=== PATIENT | male | born 1960 | race Caucasian/White ===

== ENCOUNTER → 2019-03-06 | Outpatient (CLI) | payer BC, SELFPAY ==
[2019-03-06 20:16] VITALS: BMI 44.1
[2019-03-07 00:08] LABS: Absolute Lymphocyte Count 1.81 X10^3/ul (0.83-4.51); Absolute Neutrophil Count 6.8 X10^3/uL (2.0-7.7); Basophil# 0.05 X10^3/uL; Basophil% 0.5 % (0-1); Eosinophil# 0.33 X10^3/uL; Eosinophils% 3.4 % (0-5); Hematocrit 44.2 % (40-54); Hemoglobin 14.5 g/dl (13.0-16.5); Lymphocyte # 1.81 X10^3/ul (4.0); Lymphocyte % 18.6 % (19-41); Mean Corp Hgb Conc 32.8 g/gl (32-36); Mean Corpuscular Hgb 28.2 pg (27.0-32.0); Mean Platelet Vol. 12.1 fl (6.2-12.0); Monocyte# 0.68 X10^3/uL; Neutrophil # 6.84 X10^3/uL (2.7-7.7); Neutrophil % 70.2 % (47-70); POSITIVE COUNT NO; POSITIVE DIFFERENTIAL NO; POSITIVE MORPHOLOGY NO; Platelet Count 291 K/mm3 (150-450); RBC Distribution Width CV 12.8 % (11.6-14.6); Red Blood Count 5.14 M/mm3 (4.6-6.2); White Blood Count 9.7 K/mm3 (4.4-11.0)
[2019-03-07 00:37] LABS: ALB/GLOB Ratio 0.8 RATIO (0.9-2.4); AST(SGOT) 17 U/L (15-37); Alanine Aminotransfer ALT/SGPT 23 U/L (16-61); Albumin, Serum 3.3 g/dL (3.2-5.0); Alkaline Phosphatase 59 U/L (45-117); Amylase 28 U/L (25-115); Anion Gap 8 (5-15); BUN 13 mg/dL (7-18); Calcium,Total 8.4 mg/dL (8.5-10.1); Chloride 100 mmol/L (98-107); Creatinine, Serum 0.93 mg/dL (0.70-1.30); EST Glomerular Filtration Rate 88 mL/min (>60); Est Glom Filt Rate - Afr Amer 107 mL/min (>60); Glucose 343 mg/dL (74-106); Lipase 60 U/L (73-393); Potassium 3.7 mmol/L (3.5-5.1); Protein, Total 7.3 g/dL (6.4-8.2); Sodium Level 134 mmol/L (136-145)
== END | disposition home or self-care (01) ==
PROVIDERS: Visit Provider Nurse Practitioner
DX: E11.65 Type 2 diabetes mellitus with hyperglycemia (principal); R10.13 Epigastric pain
CPT/HCPCS: 80053; 82150; 83690; 84443; 85025

== ENCOUNTER → 2020-04-14 | Outpatient (CLI) | payer BC, SELFPAY ==
[2019-04-30 17:34] VITALS: BMI 42.1
[2020-04-14 21:05] LABS: Absolute Neutrophil Count 4.9 X10^3/uL (2.0-7.7); Basophil# 0.08 X10^3/uL; Hematocrit 48.3 % (40-54); Hemoglobin 15.7 g/dL (13.0-16.5); Lymphocyte % 23.8 % (19-41); Mean Corp Hgb Conc 32.5 g/dL (32-36); Mean Corpuscular Hgb 30.1 pg (27.0-32.0); Mean Corpuscular Volume 92.5 fL (80-94); Mean Platelet Vol. 11.5 fl (6.2-12.0); Monocyte# 0.69 X10^3/uL; Monocyte% 8.7 % (0-10); NRBC Flagged by Analyzer 0 % (0-5); Neutrophil # 4.89 X10^3/uL (2.7-7.7); Neutrophil % 61.4 % (47-70); Platelet Count 302 K/mm3 (150-450); RBC Distribution Width CV 12.8 % (11.6-14.6); RBC Distribution Width SD 43.5 fl (35.1-43.9); Red Blood Count 5.22 M/mm3 (4.6-6.2)
[2020-04-14 21:28] LABS: ALB/GLOB Ratio 0.9 RATIO (0.9-2.4); AST(SGOT) 15 U/L (15-37); Alanine Aminotransfer ALT/SGPT 27 U/L (16-61); Albumin, Serum 3.6 g/dL (3.2-5.0); Alkaline Phosphatase 52 U/L (45-117); Anion Gap 5 (5-15); BUN 17 mg/dL (7-18); BUN/Creat Ratio 21.2 RATIO (10-20); Calcium,Total 8.8 mg/dL (8.5-10.1); Chloride 104 mmol/L (98-107); Cholesterol 153 mg/dL (200); EST Glomerular Filtration Rate 104 mL/min (>60); Est Glom Filt Rate - Afr Amer 126 mL/min (>60); Globulin 3.9 g/dL (2.2-4.2); Glucose 134 mg/dL (74-106); High Density Lipoprotein 56 mg/dL; Potassium 4.1 mmol/L (3.5-5.1); Protein, Total 7.5 g/dL (6.4-8.2); Sodium Level 138 mmol/L (136-145); Triglycerides 101 mg/dL; Very Low Density Lipoprotein 20 mg/dL (5-40)
== END | disposition home or self-care (01) ==
PROVIDERS: Referring Provider Nurse Practitioner; Visit Provider Nurse Practitioner
DX: I10 Essential (primary) hypertension (principal); E11.65 Type 2 diabetes mellitus with hyperglycemia
CPT/HCPCS: 80053; 80061; 85025

== ENCOUNTER → 2021-04-14 22:43 | Outpatient (CLI) | payer BC, SELFPAY ==
[2021-04-14 18:20] VITALS: BMI 42.0
[2021-04-14 23:03] LABS: Absolute Lymphocyte Count 1.72 X10^3/uL (0.83-4.51); Basophil# 0.07 X10^3/uL; Basophil% 0.8 % (0-1); Eosinophil# 0.27 X10^3/uL; Eosinophils% 3.1 % (0-5); Hematocrit 48.2 % (40-54); Hemoglobin 15.6 g/dL (13.0-16.5); Lymphocyte # 1.72 X10^3/ul (0.83-4.51); Lymphocyte % 19.6 % (19-41); Mean Corp Hgb Conc 32.4 g/dL (32-36); Mean Corpuscular Hgb 29.6 pg (27.0-32.0); Mean Corpuscular Volume 91.5 fL (80-94); Mean Platelet Vol. 11.6 fl (6.2-12.0); Monocyte# 0.76 X10^3/uL; Monocyte% 8.7 % (0-10); NRBC Flagged by Analyzer 0 % (0-5); Neutrophil # 5.95 X10^3/uL (2.7-7.7); Neutrophil % 67.7 % (47-70); Platelet Count 306 K/mm3 (150-450); RBC Distribution Width CV 12.5 % (11.6-14.6); RBC Distribution Width SD 41.8 fl (35.1-43.9); Red Blood Count 5.27 M/mm3 (4.6-6.2); White Blood Count 8.8 K/mm3 (4.4-11.0)
[2021-04-14 23:13] LABS: ALB/GLOB Ratio 0.9 RATIO (0.9-2.4); AST(SGOT) 25 U/L (15-37); Alanine Aminotransfer ALT/SGPT 30 U/L (16-61); Albumin, Serum 3.7 g/dL (3.2-5.0); Alkaline Phosphatase 54 U/L (45-117); Anion Gap 3 (5-15); BUN 17 mg/dL (7-18); BUN/Creat Ratio 23.2 RATIO (10-20); Calcium,Total 9.1 mg/dL (8.5-10.1); Chloride 100 mmol/L (98-107); Cholesterol 159 mg/dL (200); Creatinine, Serum 0.73 mg/dL (0.70-1.30); EST Glomerular Filtration Rate 115 mL/min (>60); Est Glom Filt Rate - Afr Amer 139 mL/min (>60); Globulin 4.1 g/dL (2.2-4.2); Glucose 79 mg/dL (74-106); High Density Lipoprotein 63 mg/dL; PSA,Total - Annual Screen 0.31 ng/mL (0.00-4.00); Potassium 4.6 mmol/L (3.5-5.1); Protein, Total 7.8 g/dL (6.4-8.2); Sodium Level 133 mmol/L (136-145); Triglycerides 63 mg/dL; Very Low Density Lipoprotein 13 mg/dL (5-40)
== END ==
PROVIDERS: Referring Provider Nurse Practitioner; Visit Provider Nurse Practitioner
DX: I10 Essential (primary) hypertension (principal); E11.65 Type 2 diabetes mellitus with hyperglycemia; R35.0 Frequency of micturition
CPT/HCPCS: 80053; 80061; 84153; 85025; G0103

== ENCOUNTER → 2023-01-15 | Outpatient (CLI) | payer BC, SELFPAY ==
[2023-01-15 21:41] LABS: Absolute Lymphocyte Count 1.58 X10^3/uL (0.83-4.51); Basophil# 0.07 X10^3/uL; Basophil% 0.8 % (0-1); Eosinophil# 0.41 X10^3/uL; Eosinophils% 4.7 % (0-5); Hematocrit 44.4 % (40-54); Hemoglobin 14.5 g/dL (13.0-16.5); Lymphocyte # 1.58 X10^3/ul (0.83-4.51); Mean Corp Hgb Conc 32.7 g/dL (32-36); Mean Corpuscular Hgb 29.9 pg (27.0-32.0); Mean Corpuscular Volume 91.5 fL (80-94); Mean Platelet Vol. 12.1 fl (6.2-12.0); Monocyte# 0.69 X10^3/uL; Monocyte% 7.9 % (0-10); NRBC Flagged by Analyzer 0 % (0-5); Neutrophil # 5.99 X10^3/uL (2.7-7.7); Neutrophil % 68.3 % (47-70); Platelet Count 268 K/mm3 (150-450); RBC Distribution Width CV 12.9 % (11.6-14.6); RBC Distribution Width SD 43.4 fl (35.1-43.9); Red Blood Count 4.85 M/mm3 (4.6-6.2); White Blood Count 8.8 K/mm3 (4.4-11.0)
[2023-01-15 21:53] LABS: ALB/GLOB Ratio 0.9 RATIO (0.9-2.4); AST(SGOT) 18 U/L (15-37); Alanine Aminotransfer ALT/SGPT 34 U/L (16-61); Albumin, Serum 3.3 g/dL (3.2-5.0); Alkaline Phosphatase 62 U/L (45-117); Anion Gap -1 (5-15); BUN 16 mg/dL (7-18); BUN/Creat Ratio 18.5 RATIO (10-20); Calcium,Total 8.5 mg/dL (8.5-10.1); Chloride 104 mmol/L (98-107); Cholesterol 155 mg/dL (200); Creatinine, Serum 0.86 mg/dL (0.70-1.30); EST Glomerular Filtration Rate 95 mL/min (>60); Est Glom Filt Rate - Afr Amer 115 mL/min (>60); Globulin 3.6 g/dL (2.2-4.2); Glucose 271 mg/dL (74-106); High Density Lipoprotein 56 mg/dL; Potassium 4.2 mmol/L (3.5-5.1); Protein, Total 6.9 g/dL (6.4-8.2); Sodium Level 136 mmol/L (136-145); Triglycerides 148 mg/dL; Very Low Density Lipoprotein 30 mg/dL (5-40)
== END | disposition home or self-care (01) ==
PROVIDERS: Visit Provider Nurse Practitioner
DX: E11.65 Type 2 diabetes mellitus with hyperglycemia (principal); I10 Essential (primary) hypertension
CPT/HCPCS: 80053; 80061; 85025

== ENCOUNTER → 2023-03-12 | Outpatient (CLI) | payer BC, SELFPAY ==
[2023-03-12 21:41] LABS: Absolute Lymphocyte Count 1.55 X10^3/uL (0.83-4.51); Absolute Neutrophil Count 6.8 X10^3/uL (2.0-7.7); Basophil# 0.07 X10^3/uL; Basophil% 0.7 % (0-1); Eosinophil# 0.32 X10^3/uL; Eosinophils% 3.4 % (0-5); Hematocrit 42.2 % (40-54); Hemoglobin 13.9 g/dL (13.0-16.5); Lymphocyte # 1.55 X10^3/ul (0.83-4.51); Lymphocyte % 16.4 % (19-41); Mean Corp Hgb Conc 32.9 g/dL (32-36); Mean Corpuscular Hgb 29.6 pg (27.0-32.0); Mean Corpuscular Volume 89.8 fL (80-94); Mean Platelet Vol. 11.5 fl (6.2-12.0); Monocyte% 7.4 % (0-10); NRBC Flagged by Analyzer 0 % (0-5); Neutrophil % 71.7 % (47-70); Platelet Count 280 K/mm3 (150-450); RBC Distribution Width CV 12.8 % (11.6-14.6); RBC Distribution Width SD 42.5 fl (35.1-43.9); White Blood Count 9.5 K/mm3 (4.4-11.0)
[2023-03-12 22:00] LABS: ALB/GLOB Ratio 0.9 RATIO (0.9-2.4); AST(SGOT) 13 U/L (15-37); Alanine Aminotransfer ALT/SGPT 24 U/L (16-61); Albumin, Serum 3.3 g/dL (3.2-5.0); Alkaline Phosphatase 50 U/L (45-117); Anion Gap 5 (5-15); BUN 18 mg/dL (7-18); BUN/Creat Ratio 20.5 RATIO (10-20); Chloride 104 mmol/L (98-107); Cholesterol 157 mg/dL (200); Creatinine, Serum 0.88 mg/dL (0.70-1.30); EST Glomerular Filtration Rate 93 mL/min (>60); Est Glom Filt Rate - Afr Amer 112 mL/min (>60); Globulin 3.7 g/dL (2.2-4.2); Glucose 205 mg/dL (74-106); High Density Lipoprotein 66 mg/dL; Potassium 4.1 mmol/L (3.5-5.1); Sodium Level 137 mmol/L (136-145); Triglycerides 91 mg/dL; Very Low Density Lipoprotein 18 mg/dL (5-40)
== END | disposition home or self-care (01) ==
PROVIDERS: Visit Provider Nurse Practitioner
DX: I10 Essential (primary) hypertension (principal); E11.65 Type 2 diabetes mellitus with hyperglycemia
CPT/HCPCS: 80053; 80061; 85025

== ENCOUNTER → 2023-04-26 | Outpatient (CLI) | payer BC, SELFPAY ==
[2023-04-26 22:00] LABS: Absolute Lymphocyte Count 1.59 X10^3/uL (0.83-4.51); Absolute Neutrophil Count 5.9 X10^3/uL (2.0-7.7); Basophil# 0.05 X10^3/uL; Basophil% 0.6 % (0-1); Eosinophils% 3.5 % (0-5); Hematocrit 43.8 % (40-54); Hemoglobin 14.5 g/dL (13.0-16.5); Lymphocyte # 1.59 X10^3/ul (0.83-4.51); Lymphocyte % 18.6 % (19-41); Mean Corp Hgb Conc 33.1 g/dL (32-36); Mean Corpuscular Hgb 29.8 pg (27.0-32.0); Mean Corpuscular Volume 89.9 fL (80-94); Mean Platelet Vol. 11.8 fl (6.2-12.0); Monocyte# 0.75 X10^3/uL; Monocyte% 8.8 % (0-10); NRBC Flagged by Analyzer 0 % (0-5); Neutrophil # 5.85 X10^3/uL (2.7-7.7); Neutrophil % 68.1 % (47-70); Platelet Count 295 K/mm3 (150-450); RBC Distribution Width CV 12.7 % (11.6-14.6); RBC Distribution Width SD 41.7 fl (35.1-43.9); Red Blood Count 4.87 M/mm3 (4.6-6.2); White Blood Count 8.6 K/mm3 (4.4-11.0)
[2023-04-30 16:14] LABS: Deamidated Gliadin IgA 6 units (0-19); Deamidated Gliadin IgG 1 units (0-19); Endomysial Antibody IgA Negative (Negative); Immunoglobulin A 360 mg/dL (61-437); t-Transglutaminase IgA <2 U/mL (0-3)
== END | disposition home or self-care (01) ==
PROVIDERS: Visit Provider Nurse Practitioner
DX: E11.65 Type 2 diabetes mellitus with hyperglycemia (principal); R10.13 Epigastric pain; R19.7 Diarrhea, unspecified
CPT/HCPCS: 82784; 83516; 84443; 85025; 86255

== ENCOUNTER → 2024-09-15 | Outpatient (CLI) | payer BC, SELFPAY ==
[2024-09-15 21:22] LABS: Absolute Lymphocyte Count 2.04 X10^3/uL (0.83-4.51); Absolute Neutrophil Count 7.3 X10^3/uL (2.0-7.7); Basophil# 0.08 X10^3/uL; Basophil% 0.8 % (0-1); Eosinophil# 0.27 X10^3/uL; Eosinophils% 2.6 % (0-5); Hematocrit 46.6 % (40-54); Hemoglobin 15.3 g/dL (13.0-16.5); Lymphocyte # 2.04 X10^3/ul (0.83-4.51); Lymphocyte % 19.3 % (19-41); Mean Corp Hgb Conc 32.8 g/dL (32-36); Mean Corpuscular Hgb 28.8 pg (27.0-32.0); Mean Corpuscular Volume 87.6 fL (80-94); Mean Platelet Vol. 12.3 fl (6.2-12.0); Monocyte# 0.83 X10^3/uL; Monocyte% 7.9 % (0-10); NRBC Flagged by Analyzer 0 % (0-5); Neutrophil # 7.32 X10^3/uL (2.7-7.7); Neutrophil % 69.2 % (47-70); Platelet Count 251 K/mm3 (150-450); RBC Distribution Width CV 12.3 % (11.6-14.6); RBC Distribution Width SD 39.3 fl (35.1-43.9); Red Blood Count 5.32 M/mm3 (4.6-6.2); White Blood Count 10.6 K/mm3 (4.4-11.0)
[2024-09-15 21:41] LABS: ALB/GLOB Ratio 0.9 RATIO (0.9-2.4); AST(SGOT) 13 U/L (15-37); Alanine Aminotransfer ALT/SGPT 30 U/L (16-61); Albumin, Serum 3.6 g/dL (3.2-5.0); Alkaline Phosphatase 54 U/L (45-117); Anion Gap 5 (5-15); BUN 15 mg/dL (7-18); BUN/Creat Ratio 18.6 RATIO (10-20); Calcium,Total 9.6 mg/dL (8.5-10.1); Chloride 102 mmol/L (98-107); Creatinine, Serum 0.81 mg/dL (0.70-1.30); EST Glomerular Filtration Rate 102 mL/min (>60); Est Glom Filt Rate - Afr Amer 123 mL/min (>60); Globulin 3.8 g/dL (2.2-4.2); Glucose 325 mg/dL (74-106); Potassium 4.2 mmol/L (3.5-5.1); Protein, Total 7.4 g/dL (6.4-8.2); Sodium Level 135 mmol/L (136-145)
[2024-09-17 12:08] LABS: CRP, High Sensitivity 8.36 mg/L (0.00-3.00)
== END | disposition home or self-care (01) ==
PROVIDERS: Referring Provider Nurse Practitioner; Visit Provider Nurse Practitioner
DX: E11.65 Type 2 diabetes mellitus with hyperglycemia (principal); I10 Essential (primary) hypertension
CPT/HCPCS: 80053; 85025; 86141

== ENCOUNTER → 2025-03-09 | Outpatient (CLI) | payer BC, SELFPAY ==
[2025-03-09 22:15] LABS: Absolute Lymphocyte Count 1.69 X10^3/uL (0.83-4.51); Absolute Neutrophil Count 7.5 X10^3/uL (2.0-7.7); Basophil# 0.08 X10^3/uL; Basophil% 0.8 % (0-1); Eosinophils% 2.9 % (0-5); Hematocrit 43.5 % (40-54); Hemoglobin 14.3 g/dL (13.0-16.5); Lymphocyte # 1.69 X10^3/ul (0.83-4.51); Lymphocyte % 16.4 % (19-41); Mean Corp Hgb Conc 32.9 g/dL (32-36); Mean Corpuscular Hgb 29.4 pg (27.0-32.0); Mean Corpuscular Volume 89.5 fL (80-94); Mean Platelet Vol. 12.3 fl (6.2-12.0); Monocyte# 0.73 X10^3/uL; Monocyte% 7.1 % (0-10); NRBC Flagged by Analyzer 0 % (0-5); Neutrophil # 7.48 X10^3/uL (2.7-7.7); Neutrophil % 72.5 % (47-70); Platelet Count 279 K/mm3 (150-450); RBC Distribution Width CV 12.4 % (11.6-14.6); RBC Distribution Width SD 41.1 fl (35.1-43.9); Red Blood Count 4.86 M/mm3 (4.6-6.2); White Blood Count 10.3 K/mm3 (4.4-11.0)
[2025-03-09 22:51] LABS: ALB/GLOB Ratio 1.4 RATIO (0.9-2.4); AST(SGOT) 15 U/L (<=37); Alanine Aminotransfer ALT/SGPT 15 U/L (<=46); Albumin, Serum 3.9 g/dL (3.4-4.8); Alkaline Phosphatase 53 U/L (40-129); Anion Gap 9 (5-15); BUN 14 mg/dL (4-19); CPK Total, Creatine Kinase 111 U/L (24-195); Calcium,Total 9.5 mg/dL (7.6-11.0); Carbon Dioxide 27.8 mmol/L (21.0-32.0); Chloride 97 mmol/L (98-108); Creatinine, Serum 0.71 mg/dL (0.70-1.20); EST Glomerular Filtration Rate 101 (>60); Globulin 2.9 g/dL (2.2-4.2); Glucose 296 mg/dL (70-99); Potassium 4.4 mmol/L (3.3-5.1); Protein, Total 6.8 g/dL (5.9-8.4); Sodium Level 134 mmol/L (133-145); Total Bilirubin 0.46 mg/dL (0.00-1.30); Uric Acid 3.1 mg/dL (3.5-7.2)
[2025-03-10 15:10] LABS: Troponin T High Sensitivity 18 ng/L (<=22)
== END | disposition home or self-care (01) ==
LOC: LABSPEC 21:58
PROVIDERS: Nurse Practitioner
DX: R10.9 Unspecified abdominal pain (principal); E11.65 Type 2 diabetes mellitus with hyperglycemia; R20.0 Anesthesia of skin; I10 Essential (primary) hypertension
CPT/HCPCS: 80053; 82550; 84484; 84550; 85025; 87077; 87086; 87088

== ENCOUNTER → 2025-06-03 | Outpatient (CLI) | payer BC, SELFPAY ==
--- NOTE | 2025-06-03 09:46 | VDLE_ITS ---
Reason For Study Reason For Study: Right leg edema RIGHT LEFT GSV is normal. CFV is compressible, spontaneous, phasic, competent, CFV is compressible, spontaneous, phasic, competent and demonstrates normal augmentation. and demonstrates normal augmentation. FV is compressible, spontaneous, phasic, competent and demonstrates normal augmentation. POP V is compressible, spontaneous, phasic, competent and demonstrates normal augmentation. T/P Trunk is compressible. PTV is compressible. RT PerV is compressible. Non-vascularized structure noted at the distal calf. Procedure This is a venous duplex using B-mode, color flow and spectral Doppler. Exam performed in department. A preliminary report was called and/or faxed to BRIANA Garibay. VL/Venous Duplex US, Unilateral Interpretation Summary Deep veins of the right lower extremity are patent and compressible segmentally . There is no evidence of right lower extremity deep vein thrombosis. The right great saphenous vein appears patent a nd compressible segmentally. Non-vascularized structure noted at the distal calf. Ordering Physician: Estefania Garibay Referring Physician: Estefania Garibay Performed By: Tierra Buck RVT and Student
== END | disposition home or self-care (01) ==
LOC: CVS 09:45
PROVIDERS: PCP Nurse Practitioner; Referring Provider Nurse Practitioner; Visit Provider Nurse Practitioner
DX: R60.0 Localized edema (principal); I82.461 Acute embolism and thrombosis of right calf muscular vein
CPT/HCPCS: 93971

== ENCOUNTER → 2025-08-20 | Outpatient (CLI) | payer BC, SELFPAY ==
--- OUTSIDE RECORDS SUMMARY | 2025-08-20 21:44 | XMS RPT_ITS | CCD ---
Author Organization [facility] Care Team Providers Care Drug Regulatory Affairs Specialist Name Role Phone Álvaro James Unavailable Unavailable PROVIDER, UNKNOWN Unavailable Unavailable Helton, Erik Unavailable Unavailable Helton LINING IRONER-C, Erik Attending Provider [phone] Helton LINING IRONER-C, Erik Referring Provider Miguel Heltona Attending Provider Unavailable Helton, Erik Referring Provider Unavailable CINDY HALL Attending Unavailabl e HELTON, ERIK L Primary Care Unavailable Helton LINING IRONER-C, Erik Primary Care Provider Willy STAFFORD, Dr. Dupree Attending Provider Nini STAFFORD, Lupillo Horne Unavailable NONE, NONE Unavailable Unavailable Helton, Erik Unavailable Helton LINING IRONER, Erik Primary Care Unavailable Helton LINING IRONER, Erik Referring Unavailable Helton LINING IRONER, Erik Attending Unavailable Helton, Erik Referring Unavailable Helton, Erik Attending Unavailable Care Physician, No Primary Primary Care Unava ilable Helton LINING IRONER, Erik Referring Unavailable Helton LINING IRONER, Erik Attending Unavailable Helton LINING IRONER, Erik Primary Care Unavailable Joon Aguilera Attending Unavailable Helton LINING IRONER, Erik Referring Unavailable HELTON, ERIK Primary Care Unavailable HELTON, ERIK Primary Care Unavailable HELTON, ERIK Primary Care Unavailable MCKENZIE STAFFORD, [facility] Admitting Unavail able HELTON, ERIK Primary Care Unavailable HELTON, ERIK Primary Care Unavailable HELTON, ERIK Primary Care Unavailable HELTON, ERIK Primary Care Unavailable Allergies Allergy Classification Reported Allergen(s) Allergy Type Date of Onset Reaction(s) Facility (3 sources) SITagliptin Drug Allergy 0 abd pain and unable to wake up [facility] (1 source) SITagliptin Drug Allergy 0 [facility] Repository Medications Current Medications Medication Drug Class(es) Dates Sig (Normalized) Sig (Original) Adult Low Dose Aspirin 81 mg tablet,delayed release (1 source) take 1 tablet by mouth once daily Adult Low Dose Aspirin 81 mg tablet,delayed release 1 tablet by mouth once a day active [facility] amLODIPine 5 mg oral tablet (3 sources) Dihydropyridine Calcium Channel Carlo Start: 09-15-2024 take 1 tablet by mouth once daily Amlodipine 5 mg tablet Active 5 mg PO daily 90 3 September 15, 2024 1:00am aspirin 81 mg delayed release oral tablet (3 sources) Platelet Aggregation Inhibitor, Nonsteroidal Anti-inflammatory Drug Start: 03-13-2019 take 1 tablet by mouth once daily Aspirin 81 mg tablet,delayed release (DR/EC) Active 81 mg PO DAILY March 13, 2019 12:00am atorvastatin 40 mg oral tablet (1 source) HMG-CoA Reductase Inhibitor take 1 tablet by mouth once daily atorvastatin 40 mg tablet 1 tablet by mouth once a day active [facility] clopidogrel 75 mg oral tablet (2 sources) P2Y12 Platelet Inhibitor Start: 06-02-2025 take 1 tablet by mouth once daily Clopidogrel 75 mg tablet Active 75 mg PO daily June 02, 2025 12:00am ibuprofen 200 mg oral tablet (1 source) Nonsteroidal Anti-inflammatory Drug take 2 tablets by mouth three times daily as needed for pain ibuprofen 200 mg tablet 2 tablet by mouth three times a day as needed for pain active [facility] TIRZEPATIDE (1 source) Mounjaro 10 mg/0 .5 mL subcutaneous pen injector 1 pen injector subcutaneously Sundays active [facility] Tirzepatide (Mounjaro) 10 mg/0.5 mL pen injector (1 source) Start: 06-01-2025 Tirzepatide (Mounjaro) 10 mg/0.5 mL pen injector Active 10 mg SC EVERY WEEK 6.5 90 3 June 01, 2025 12:00am Completed/Discontinued Medications Medication Drug Class(es) Dates Sig (Normalized) Sig (Original) baclofen 5 mg oral tablet (3 sources) gamma-Aminobutyric Acid-ergic Agonist Start: 01-05-2022 End: 01-15-2023 Baclofen 5 mg tablet Discontinued 5 mg PO THREE TIMES A DAY 60 4 January 05, 2022 12:00am January 15, 2023 7:12pm May take 1-2 pills up to 3 x a day cefdinir 300 mg oral capsule (2 sources) Cephalosporin Antibacterial Start: 01-11-2024 End: 02-15-2024 take 1 capsule by mouth twice daily Cefdinir 300 mg capsule Discontinued 300 mg PO TWICE A DAY 20 0 January 11, 2024 12:00am February 15, 2024 5:36pm ciprofloxacin 500 mg oral tablet (2 sources) Quinolone Antimicrobial Start: 04-26-2023 End: 01-11-2024 take 1 tablet by mouth twice daily Ciprofloxacin Hcl (Cipro) 500 mg tablet Discontinued 500 mg PO TWICE A DAY 14 April 26, 2023 12:00am January 11, 2024 5:54pm 24 hr dapagliflozin 10 mg / metFORMIN hydrochloride 500 mg extended release oral tablet (18 sources) Biguanide, Sodium-Glucose Cotransporter 2 Inhibitor Start: 04-03-2019 End: 01-15-2023 Dapaglifloz Propaned-Metformin (Xigduo Xr) 10-500 mg tablet, IR - ER, biphasic 24hr Discontinued 1 {tbl} PO DAILY 30 April 26, 2020 1:36pm April 14, 2021 6:29pm Dulaglutide (10 sources) GLP-1 Receptor Agonist Start: 03-29-2023 End: 09-15-2024 Dulaglutide 3 mg/0.5 mL pen injector Discontinued 3 mg SC EVERY WEEK 6.5 90 March 29, 2023 5:58pm September 15, 2024 8:44pm Start: 03-29-2023 End: 09-15-2024 Dulaglutide 3 mg/0.5 mL pen injector Discontinued 3 mg SC EVERY WEEK 6.5 90 March 29, 2023 5:58pm September 15, 2024 8:44pm Start: 03-12-2023 End: 03-29-2023 Dulaglutide 3 mg/0.5 mL pen injector Discontinued 3 mg SC EVERY WEEK 6.5 90 March 12, 2023 12:00am March 29, 2023 5:58pm Start: 03-12-2023 End: 03-29-2023 Dulaglutide 3 mg/0.5 mL pen injector Discontinued 3 mg SC EVERY WEEK 6.5 90 March 12, 2023 12:00am March 29, 2023 5:58pm Start: 01-15-2023 End: 03-12-2023 Dulaglutide 1.5 mg/0.5 mL pe n injector Discontinued 1.5 mg SC EVERY WEEK 2.5 30 January 15, 2023 12:00am March 12, 2023 7:57pm Start: 01-05-2022 End: 01-15-2023 Dulaglutide (Trulicity) 0.75 mg/0.5 mL pen injector Discontinued 0.75 mg SC EVERY WEEK 2.5 06 10January 05, 2022 12:00am January 15, 2023 7:13pm empagliflozin 25 mg oral tablet (3 sources) Sodium-Glucose Cotransporter 2 Inhibitor Start: 01-05-2022 End: 01-15-2023 take 1 tablet by mouth once daily Empagliflozin (Jardiance) 25 mg tablet Discontinued 25 mg PO DAILY 30 January 05, 2022 12:00am January 15, 2023 7:10pm lisinopril 10 mg oral tablet (3 sources) Angiotensin Converting Enzyme Inhibitor Start: 04-30-2019 End: 04-14-2021 take 1 tablet by mouth once daily Lisinopril 10 mg tablet Discontinued 10 mg PO DAILY 30 April 30, 2019 12:00am April 14, 2021 6:26pm metFORMIN hydrochloride 1000 mg oral tablet (20 sources) Biguanide Start: 01-05-2022 End: 09-15-2024 take 1 tablet by mouth twice daily Metformin 1,000 mg tablet Discontinued 1000 mg PO TWICE A DAY 180 2 June 06, 2023 4:37pm February 15, 2024 5:39pm Start: 03-13-2019 End: 04-03-2019 take 1 tablet by mouth twice daily Metformin 1,000 mg tablet Discontinued 1000 mg PO TWICE A DAY 180 3 March 13, 2019 8:14pm April 03, 2019 5:59pm 24 hr metoprolol succinate 50 mg extended release oral tablet (20 sources) beta-Adrenergic Carlo Start: 03-13-2019 End: 09-15-2024 take 1 tablet by mouth once daily Metoprolol Succinate 50 mg tablet extended release 24 hr Discontinued 50 mg PO DAILY 90 3 March 29, 2023 5:58pm September 15, 2024 8:39pm metroNIDAZOLE 250 mg oral tablet (2 sources) Nitroimidazole Antimicrobial Start: 04-26-2023 End: 05-06-2023 take 1 tablet by mouth three times daily Metronidazole 250 mg tablet Discontinued 250 mg PO THREE TIMES A DAY 30 10 0 April 26, 2023 12:00am May 05, 2023 12:00am May 06, 2023 12:03am pioglitazone 45 mg oral tablet (3 sources) Peroxisome Proliferator Receptor alpha Agonist, Peroxisome Proliferator Receptor gamma Agonist, Thiazolidinedione Start: 03-13-2019 End: 04-03-2019 take 1 tablet by mouth once daily Pioglitazone 45 mg tablet Discontinued 45 mg PO DAILY March 13, 2019 12:00am April 03, 2019 5:59pm predniSONE 20 mg oral tablet (2 sources) Start: 01-11-2024 End: 02-15-2024 take 2 tablets by mouth once daily Prednisone 20 mg tablet Discontinued 40 mg PO DAILY 20 January 11, 2024 12:00am February 15, 2024 5:36pm 0.25 mg, 0.5 mg dose 1.5 ml semaglutide 1.34 mg/ml pen injector (12 sources) Start: 04-03-2019 End: 01-15-2023 Semaglutide (Ozempic) 0.25 mg or 0.5 mg(2 mg/1.5 mL) pen injector Discontinued 0.5 mg SC EVERY WEEK June 01, 2020 5:47pm April 14, 2021 6:29pm Tirzepatide (Mounjaro) 2.5 mg/0.5 mL pen injector (2 sources) Start: 09-15-2024 End: 10-21-2024 Tirzepatide (Mounjaro) 2.5 mg/0.5 mL pen injector Discontinued 2.5 mg SC EVERY WEEK September 15, 2024 1:00am October 21, 2024 11:37am for 4 weeks Tirzepatide (Mounjaro) 5 mg/0.5 mL pen injector (2 sources) Start: 10-17-2024 End: 03-09-2025 Tirzepatide (Mounjaro) 5 mg/0.5 mL pen injector Discontinued 5 mg SC EVERY WEEK 2.5 30 October 17, 2024 1:00am March 09, 2025 8:07pm diabetes type 2 Start: 10-17-2024 End: 03-09-2025 Tirzepatide (Mounjaro) 5 mg/ 0.5 mL pen injector Discontinued 5 mg SC EVERY WEEK 2.5 30 October 17, 2024 1:00am March 09, 2025 8:07pm Tirzepatide (Mounjaro) 7.5 mg/0.5 mL pen injector (2 sources) Start: 03-09-2025 End: 06-02-2025 Tirzepatide (Mounjaro) 7.5 mg/0.5 mL pen injector Discontinued 7.5 mg SC EVERY WEEK 0.5 7 March 09, 2025 12:00am June 02, 2025 12:06pm Start: 03-09-2025 Tirzepatide (M ounjaro) 7.5 mg/0.5 mL pen injector Active 7.5 mg SC EVERY WEEK 0.5 7 March 09, 2025 12:00am Problems Active Problems Problem Classification Problem Date Documented Da te Episodic/Chronic Acute myocardial infarction (1 source) Non-ST elevation (NSTEMI) myocardial infarction; Translations: [NSTEMI (non-ST elevated myocardial infarction) (HCC)] Onset: 03-16-2025 Chronic Biliary tract disease (3 sources) Biliary calculus; Translations: [Calculus of gallbladder without cholecystitis without obstruction] 04-30-2019 Episodic Chronic obstructive pulmonary disease and bronchiectasis (2 sources) Bronchitis; Translations: [Bronchitis, not specified as acute or chronic] 01-11-2024 Episodic Diabetes mellitus with complications (5 sources) Type II diabetes mellitus uncontrolled; Translations: [Uncontrolled type 2 diabetes mellitus] Onset: 04-25-2019 04-30-2019 Chronic Essential hypertension (4 sources) Hypertensive disorder; Translations: [Essential (primary) hypertension] Onset: 04-25-2019 04-30-2019 Chronic Genitourinary symptoms and ill-defined conditions (3 sources) Increased frequency of urination; Translations: [Frequency of micturition] 01-15-2023 Episodic Nonspecific chest pain (1 source) Chest pain, unspecified; Translations: [Chest pain, unspecified type] Onset: 03-16-2025 Episodic Osteoarthritis (2 sources) Unilateral primary osteoarthritis, left knee; Translations: [Unilateral primary osteoarthritis, left knee] Onset: 04-07-2018 Chronic Other gastrointestinal disorders (3 sources) Diarrhea; Translations: [Diarrhea, unspecified] 03-06-2019 Episodic Other nervous system disorders (2 sources) Numbness of upper limb; Translations: [Anesthesia of skin] 03-09-2025 Episodic Other non-traumatic joint disorders (2 sources) Pain in left knee; Translations: [Pain in left knee] Onset: 04-07-2018 Episodic Other upper respiratory infections (2 sources) Acute maxillary sinusitis; Translations: [Acute maxillary sinusitis, unspecified] 01-11-2024 Episodic Phlebitis; thrombophlebitis and thromboembolism (1 source) Acute deep venous thrombosis of calf; Translations: [Acute embolism and thrombosis of right calf muscular vein] 06-01-2025 Episodic Residual codes; unclassified (1 source) Edema of right lower leg; Translations: [Localized edema] 06-01-2025 Episodic Residual codes; unclassified (1 source) Localized edema; Translations: [Localized edema] Onset: 06-10-2025 Episodic Sprains and strains (4 sources) Strain of other muscle(s) and tendon(s) of posterior muscle group at lower leg level, left leg, initial encounter; Translations: [Strain of calf muscle] Onset: 04-07-2018 06-25-2025 Episodic Unclassified (2 sources) Overexertion from strenuous movement or load, initial encounter; Translations: [Overexertion from strenuous movement or load, init] Onset: 04-07-2018 Past or Other Problems Problem Classification Problem Date Documented Da te Episodic/Chronic Abdominal pain (8 sources) Epigastric pain; Translations: [Epigastric pain] Onset: 03-12-2025 03-06-2019 Episodic Diabetes mellitus without complication (3 sources) Diabetes mellitus without complication 05-08-2022 Results Test Name Value Interpretation Reference Range Facility AMB CARD Physician Progress Noteon 07-31-2025 AMB CARD Physician Progress Note SHAWNGALLO :1960 Registration Date:07/30/2025 Assessment/Plan 1. Coronary artery disease I25.10 stent to LAD 2. Type 2 diabetes mellitus E11.9 3. Hypertension I10: increase amlodipine to 10mg 4. Hyperlipidemia E78.5 5. Continue current medications and follow up in six months: BP check in couple of weeks Chief Complaint discuss meds very dizzy and falling History of Present Illness Disclaimer: The content of this note was generated by an artificial intelligence (AI) language model version 25.Q4.0.0 Patient consented to the use of AI This is follow up visit for Mr Escobar and he has CAD HTN DM and HLD Dizziness, Falls, and Leg Injury The patient reports experiencing dizziness and balance issues, resulting in several falls. 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 He injured his leg on the first night of tennis, initially suspecting an Achilles tendon tear, but later attributing it to a muscle injury connected to the tendon. The affected leg was swollen, but the swelling has decreased with the use of compression. He notes that as his leg heals, his dizziness is also improving. He denies chest pain or trouble breathing. Medication Use, Blood Pressure, and Kidney Health The patient is currently taking Plavix, approximately three months after stent placement, and amlodipine, recently increased to 10 mg. He reports that some of his medications are causing dizziness. He is unsure if his blood pressure is low, but notes that he does not add salt to his food and is considering a low sodium diet. He reports pain near his kidneys, primarily in the morning upon waking before getting out of bed, and is particularly sensitive to this symptom due to his father's history of kidney cancer. He denies hematuria but notes that his urine is darker than usual, which he attributes to inadequate hydration, especially in the context of his medication use. He has discussed these symptoms with his primary care provider, who recommended increased hydration. Medication Reconciliation What How Much When Instructions Changed amLODIPine (amLODIPine 10 mg oral tablet) 1 Tabs Oral DAILY Ordering Physician: ANDRZEJ CARLOS CNP Pickup at [id number] Unchanged aspirin (aspirin 81 mg oral delayed release tablet) 1 Tabs Oral DAILY WITH BREAKFAST Ordering Physician: ANDRZEJ CARLOS CNP Unchanged atorvastatin (Lipitor 40 mg oral tablet) 2 Tabs Oral AT BEDTIME Ordering Physician: ANDRZEJ CARLOS CNP Unchanged clopidogrel (Plavix 75 mg oral tablet) 1 Tabs Oral DAILY Ordering Physician: ANDRZEJ CARLOS CNP Unchanged metFORMIN = Glucophage (metFORMIN 500 mg oral tablet) 2 Tabs Oral TWICE A DAY Unchanged metoprolol (metoprolol succinate 50 mg oral tablet, extended release) 1 Tabs Oral DAILY Ordering Physician: ANDRZEJ CARLOS CNP Unchanged tirzepatide (Mounjaro 7.5 mg/ 0.5 mL subcutaneous solution) 7.5 Milligram Subcutaneous SUNDAY Special Instructions: rotate injection sites Pharmacy Information [id number]: [address] [place], [place] [phone] Cardiac History No qualifying data available. Physical Exam NECK: JVP is not elevated: Good carotid pulses and no bruit CVS; Normal heart sounds. No murmur and no gallop. No rub BP: 155/85 mm Hg LUNGS: No rhonchi and no wheeze: Clear breath sounds ADOMEN: Benign EXTREMITIES: Good distal pulses. No edema of legs Vitals & Measurements Temperature Temporal (F): 98.4 degF (07/30/25 09:51:00) Apical Heart Rate: 78 bpm (07/30/25 09:51:00) Height/Length Measured: 185 cm (07/30/25 09:51:00) Weight Measured: 137 kg (07/30/25 09:51:00) Body Mass Index Measured: 40.03 kg/m2 (07/30/25 09:51:00) Weight Measured - lbs2: 302 lb (07/30/25 09:51:00) Height/Length Measured - in2: 73 in (07/30/25 09:51:00) Body Mass Index Measured English2: 39.84 kg/m2 (07/30/25 09:51:00) BSA: 2.65 m2 (07/30/25 09:51:00) Ht/Wt Measurement Refused by Patient?2: No (07/30/25 09:51:00) Social History Alcohol Use:Current Type:Beer Frequency:1-2 times per year Previous treatment:None Concerns about alcohol use in household:No *Have you ever felt you should cut down on drinking?No *Have people annoyed you by criticizing your drinking?No *Have you ever felt bad or guilty about your drinking?No *Have you ever taken an eye-mill manager to get rid of a hangover?No Domestic Concerns Feels highly stressed:No *Requesting to speak to someone regarding stressNo Emotional Support AvailableYes CopingEffective *Patient's ResponsibilitiesDrivin g, Housework, Laundry, Meal preparation, Work *Financial Concerns Regarding Hospitalization/Discha rgeNo Financial ConcernsNo *Requesting to speak to someone regarding financial concernsNo Concern for family members at home:No Major illness in household:No *Family/Friends available to help:Yes Employment/School Statu (more content not included)... Normal [facility] Provider Letter - Ambulatory on 07-31-2025 Provider Letter - Ambulatory ERIK HELTON, [address] [facility] [address] [place] [address] RE: DEEPTAMIR SHAWN - 1960 Dear ERIK HELTON This document is confidential and intended solely for the use of the individual or entity to which they are addressed. If you are not the named addressee, please disregard and do not disseminate, distribute or copy this information. If you are not the intended recipient you are notified that any disclosure of this information and its contents are strictly prohibited. If you have any questions about this document, please contact the office. Sincerely, MCKENZIE STAFFORD, [facility] The following document(s) were included in the letter: July 30, 2025 09:27:47 EDT - (07/30/2025) Cardiology Follow Up Note Normal [facility] Relevant diagnostic tests/la boratory data Narrativeon 06-25-2025 Fall risk assessment no [employer] Work Phone: MEDS REVIEW Documentation of current medications (procedure) [employer] Work Phone: MEDS REVIEWD Medications reviewed without changes [employer] Work Phone: ULTRASNDATE of the Right Lower Extremity on 06/2025 at [facility] [employer] Work Phone: Relevant diagnostic tests/la boratory data Narrativeon 06-23-2025 MEDS REVIEWD Medications reviewed with changes [employer] Work Phone: Venous Duplex US, Unilateral on 06-03-2025 Venous Duplex US, Unilateral [facility] [address] [place] [address] Venous Duplex US, Unilateral 06/03/25 0957 MR#: [id number] Acct: [id number] Name: GALLO ESCOBAR Rep #: [id number] : 1960 64 From: Joon Aguilera MD Attending Dr: Erik Helton, LINING IRONER-C Status: REG CLI Ordering Dr: Erik Helton LINING IRONER LINING IRONER-C Date: 5 Location: CVS Sex: M C Admitted: Reason For Study Reason For Study: Right leg edema RIGHT LEFT GSV is normal. CFV is compressible, spontaneous, phasic, competent, CFV is compressible, spontaneous, phasic, competent and demonstrates normal augmentation. and demonstrates normal augmentation. FV is compressible, spontaneous, phasic, competent and demonstrates normal augmentation. POP V is compressible, spontaneous, phasic, competent and demonstrates normal augmentation. T/P Trunk is compressible. PTV is compressible. RT PerV is compressible. Non-vascularized structure noted at the distal calf. Procedure This is a venous duplex using B-mode, color flow and spectral Doppler. Exam performed in department. A preliminary report was called and/or faxed to BRIANA Helton. VL/Venous Duplex US, Unilateral Interpretation Summary Deep veins of the right lower extremity are patent and compressible segmentally. There is no evidence of right lower extremity deep vein thrombosis. The right great saphenous vein appears patent and compressible segmentally. Non-vascularized structure noted at the distal calf. Ordering Physician: Erik Helton Referring Physician: Erik Helton Performed By: Tierra Buck RVT and Student 06/03/25 2327 Date Joon Aguilera MD CC: LINING IRONER-C Erik Helton Date Dictated: 06/03/25956 Date Transcribed: 06/03/251856 Supervisor Tubing: Signed Normal [facility] Venous duplex ultrasound rep ortOrdered By: Joon Aguilera on 06-03-[address] [facility] [address] [place] [address] Venous Duplex US, Unilateral 06/03/25956 MR#: [id number] Acct: [id number] Name: GALLO ESCOBAR Rep #:[id number] : 1960 64 From: Joon Crow Attending Dr: BRIANA Arce Status: REG CLI Ordering Dr: Erik Helton NP LINING IRONER-C D ate: 06/03/25 Location: CVS Sex: M C Admitted: Reason For Study Reason For Study: Right leg edema RIGHT LEFT GSV is normal. CFV is compressible, spontaneous, phasic, competent, CFV is compressible, spontaneous, phasic, competent and demonstrates normal augmentation. and demonstrates normal augmentation. FV is compressible, spontaneous, phasic, competent and demonstrates normal augmentation. POP V is compressible, spontaneous, phasic, competent and demonstrates normal augmentation. T/P Trunk is compressible. PTV is compressible. RT PerV is compressible. Non-vascularized structure noted at the distal calf. Procedure This is a venous duplex using B-mode, color flow and spectral Doppler. Exam performed in department. A preliminary report was called and/or faxed to BRIANA Helton. VL/Venous Duplex US, Unilateral Interpretation Summary Deep veins of the right lower extremity are patent and compressible segmentally.There is no evidence of right lower extremity deep vein thrombosis. The right great saphenous vein appears patent and compressible segmentally. Non-vascularized structure noted at the distal calf. Ordering Physician: Erik Helton Referring Physician: Erik Helton Performed By: Tierra Buck RVT and Student 06/03/251856 Date _ Joon Aguilera MD CC: LINING IRONER-C Erik Helton ~ Date Dictated: 06/03/25956 Date Transcribed: 06/03/251856 Supervisor Tubing: Signed [facility] Work Phone: [employer] CARD Physician Progress Noteon 04-09-2025 AMB CARD Physician Progress Note GALLO ESCOBAR :1960 Registration Date:04/01/2025 Assessment/Plan . This Visit Diagnosis 1. Coronary artery disease I25.10 stent to LAD 2. Type 2 diabetes mellitus E11.9 3. Hypertension I10 4. Hyperlipidemia E78.5 5. Advised to get into cardiac rehab program. Is okay to go back to work from next week. Currently weighs 307 pounds and would like to lose at least 50 pounds by his next visit. I emphasized about having a good diabetic control and keeping the lipid profile under strict control and losing weight and exercise on a regular basis. Chief Complaint CHECK FROM PCI NEEDS TO GO BACK TO BP SEEMS TO BE HIGH History of Present Illness Disclaimer: The content of this note was generated by an artificial intelligence (AI) language model version 25.03.0.0 This is a follow-up visit for Mr. Escobar and he had a recent coronary intervention and he has diabetes hypertension and hyperlipidemia. He had couple of stents to the LAD Cardiac Rehab and Post-PCI Follow-Up and Return to Work The patient reports feeling much better since the last visit and denies any burning chest pain, jaw pain, or shoulder pain. He has not yet started cardiac rehab but plans to do so. He is concerned about returning to work too soon and potentially affecting his recovery. He performs a physically demanding job, involving 15,000 to 20,000 steps a day and lifting heavy objects. He plans to return to work on Sunday and has brought the necessary paperwork for clearance. Blood Sugar Levels The patient's blood sugar levels have been between 127 and 162, with a reading of 127 today. He mentions that his last K1C was 10 and believes it may be higher now due to being off medication for three weeks. Weight Management The patient has lost 15 pounds since his surgery. He aims to lose an additional 50 pounds, noting that he was down to 275 pounds a year ago from an initial weight of 400 pounds. He attributes his weight loss to dietary changes and plans to continue monitoring his intake and staying away from unhealthy foods. Blood Pressure The patient notes that his blood pressure tends to be higher in the mornings, with the bottom number around 80. He has been using an automatic blood pressure cuff at home and suspects the cuff may be too small, leading to higher readings. Medication Reconciliation What How Much When Instructions Unchanged amLODIPine (amLODIPine 5 mg oral tablet) 1 Tabs Oral DAILY Unchanged aspirin (aspirin 81 mg oral delayed release tablet) 1 Tabs Oral DAILY WITH BREAKFAST Unchanged atorvastatin (Lipitor 40 mg oral tablet) 2 Tabs Oral AT BEDTIME Unchanged clopidogrel (Plavix 75 mg oral tablet) 1 Tabs Oral DAILY Unchanged metFORMIN = Glucophage (metFORMIN 500 mg oral tablet) 2 Tabs Oral TWICE A DAY Unchanged metoprolol (metoprolol succinate 50 mg oral tablet, extended release) 1 Tabs Oral DAILY Unchanged tirzepatide (Mounjaro 7.5 mg/ 0.5 mL subcutaneous solution) 7.5 Milligram Subcutaneous SUNDAY rotate injection sites Cardiac History No qualifying data available. Physical Exam NECK: JVP is not elevated: Good carotid pulses and no bruit CVS; Normal heart sounds. No murmur and no gallop. No rub BP: 125/84 mm Hg LUNGS: No rhonchi and no wheeze: Clear breath sounds ADOMEN: Benign EXTREMITIES: Good distal pulses. No edema of legs Vitals & Measurements Temperature Temporal (F): 98.4 degF (04/01/25 15:39:00) Apical Heart Rate: 90 bpm (04/01/25 15:39:00) Height/Length Measured: 185 cm (04/01/25 15:39:00) Weight Measured: 139 kg (04/01/25 15:39:00) Body Mass Index Measured: 40.61 kg/m2 (04/01/25 15:39:00) Weight Measured - lbs2: 307 lb (04/01/25 15:39:00) Height/Length Measured - in2: 73 in (04/01/25 15:39:00) Body Mass Index Measured English2: 40.5 kg/m2 (04/01/25 15:39:00) BSA: 2.68 m2 (04/01/25 15:39:00) Ht/Wt Measurement Refused by Patient?2: No (04/01/25 15:39:00) Social History Alcohol Use:Current Type:Beer Frequency:1-2 times per year Previous treatment:None Concerns about alcohol use in household:No *Have you ever felt you should cut down on drinking?No *Have people annoyed you by criticizing your drinking?No *Have you ever felt bad or guilty about your drinking?No *Have you ever taken an eye-mill manager to get rid of a hangover?No Domestic Concerns Feels highly stressed:No *Requesting to speak to someone regarding stressNo Emotional Support AvailableYes CopingEffective *Patient's ResponsibilitiesDrivin g, Housework, Laundry, Meal preparation, Work *Financial Concerns Regarding Hospitalization/Discha rgeNo Financial ConcernsNo *Requesting to speak to someone regarding financial concernsNo Concern for family members at home:No Major illness in household:No *Family/Friends available to help:Yes Employment/School 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 Normal [facility] Cardiac Catheterization-Repo rton 04-08-2025 Cardiac Catheterization-Report GALLO ESCOBAR :1960 Registration Date:03/16/2025 LEFT HEART CATHETERIZATION DATE: 03/17/2025 HISTORY/PRE PROCEDURE DIAGNOSIS: 64-year-old man with hypertension diabetes hyperlipidemia presented with new onset angina and subsequently found to have NSTEMI with no significant EKG changes. He is brought in today for elective left heart catheterization. PROCEDURE(S) PERFORMED: 1. Left Heart Catheterization 2. Coronary Angiography 3. Left Ventriculography PROCEDURE(S) PERFORMED BY: 1. Brenda Hawkins MD ASSISTANTS: None PROCEDURE DESCRIPTION: The patient was brought to the cardiac catheterization suite and reevaluated before beginning procedure. The risks, benefits, rationale and alternatives of the procedure have been discussed with the patient. Informed consent was obtained. The [right] groin was prepped and draped in a sterile fashion. The remainder of the procedure was performed under sterile technique. After adequate sedation, 5 ml of 2% lidocaine was applied to the [right] groin for local anesthesia. Using a single wall puncture technique, the [right] common femoral artery was cannulated without difficulty and a 6-Sierra Leonean introducer sheath was placed. A 5-Sierra Leonean (JL4) catheter was successfully engaged in the left coronary system. A 5-Sierra Leonean (JR4) catheter was successfully engaged in the right coronary artery and the same catheter was used for measurement of left ventricular and aortic pressures (and for performance of the ventriculogram). At the end of the procedure, he is left on the catheter table for coronary intervention to the left anterior descending artery. HEMODYNAMICS: 1. Left ventricle: 117/9 mm Hg 2. Central aortic pressure: 116/68 mm Hg 3. There was no significant aortic valve gradient on pullback. CORONARY ANGIOGRAPHY: 1. The left main coronary artery is a normal vessel and it bifurcates into LAD and circumflex arteries. 2. The left anterior descending coronary artery is a fairly decent sized vessel and it has almost a 99% narrowing in its proximal one third and distally its barely opacified and it looks like it goes all the way to the apex.. 3. The circumflex coronary artery is a huge dominant vessel and there is no hemodynamically significant disease. 4. The right coronary artery is a relatively small nondominant vessel and it looks normal. VENTRICULOGRAPHY: A single left ventriculogram was performed in the BRYANT 30 projection which revealed low normal left ventricular systolic function with an estimated LVEF of 55% with apical and distal anteroapical hypokinesis COMPLICATIONS: No apparent complications. ESTIMATED BLOOD LOSS: 10 mLs blood loss. SPECIMEN: No specimens obtained. CATHETERS/DRAINS: None IMPRESSION/POST PROCEDURE DIAGNOSIS: Single-vessel coronary artery disease 99% narrowing of the proximal LAD with faint opacification of the rest of the vessel Low normal LV function with ejection fraction around 55% with apical hypokinesis LVEDP is within normal limits RECOMMENDATIONS: Intervention to left anterior descending artery Normal [facility] Provider Letter - Ambulatory on 04-08-2025 Provider Letter - Ambulatory ERIK HELTON, [address] [facility] [address] [place] [id number] RE: DEEPTAMIR SHAWN - 1960 04/01/2025 Dear ERIK HELTON This document is confidential and intended solely for the use of the individual or entity to which they are addressed. If you are not the named addressee, please disregard and do not disseminate, distribute or copy this information. If you are not the intended recipient you are notified that any disclosure of this information and its contents are strictly prohibited. If you have any questions about this document, please contact the office. Sincerely, Karen Nichols MA [facility] The following document(s) were included in the letter: April 01, 2025 19:43:07 EDT - (04/01/2025) Cardiology Follow Up Note Normal [facility] Provider Letter - Ambulatory ERIK HELTON, [address] [facility] [address] [place] [id number] RE: GALLO ESCOBAR - 1960 03/16/2025 Dear ERIK HELTON This document is confidential and intended solely for the use of the individual or entity to which they are addressed. If you are not the named addressee, please disregard and do not disseminate, distribute or copy this information. If you are not the intended recipient you are notified that any disclosure of this information and its contents are strictly prohibited. If you have any questions about this document, please contact the office. Sincerely, Karen Nichols MA [facility] The following document(s) were included in the letter: April 01, 2025 19:43:07 EDT - (04/01/2025) Cardiology Follow Up Note Normal [facility] AUTO DIFFon 03-18-2025 Baso Count 0.04 x1000 Normal 0.00-0.20 [facility] Comment on above: Performed By: #### 9 [id number], [id number], [id number] #### [facility] [address] [place] [address] Military Communications Specialist: Kamlesh Kaufman MD Basos % 0.4 % Normal [facility] Comment on above: Performed By: #### 9 [id number], [id number], [id number] #### [facility] [address] [place] [address]7848 [employer] Specialist: Kamlesh Kaufman MD Eos Count 0.28 x1000 Normal 0.00-0.50 [facility] Comment on above: Performed By: #### 9 [id number], 858047, [id number] #### [facility] [address] [place] [address]9031 [employer] Specialist: Kamlesh Kaufman MD Eosinophils/100 WBC (Bld) 2.9 % Normal [facility] Comment on above: Performed By: #### 9 [id number], [id number], [id number] #### [facility] [address] [place] [address]142 [employer] Specialist: Kamlesh Kaufman MD Lymph Count 1.42 x1000 Normal 1.20-4.80 [facility] Comment on above: Performed By: #### 9 [id number], [id number], [id number] #### [facility] [address] [place] [address]886 [employer] Specialist: Kamlesh Kaufman MD Lymphocytes/100 WBC (Bld) 14.5 % Normal [facility] Comment on above: Performed By: #### 9 [id number], 788311, 740314 #### [facility] [address] [place] [address]3475 [employer] Specialist: Kamlesh Kaufmna MD [place] Count 1.02 x1000 High 0.10-1.00 [facility] Comment on above: Performed By: #### 9 [id number], 184166, 325894 #### [facility] [address] [place] [address]3469 [employer] Specialist: Kamlesh Kaufman MD Monocytes/100 WBC (Bld) 10.4 % Normal [facility] Comment on above: Performed By: #### 9 [id number], 478063, 629009 #### [facility] [address] [place] [address]50 [employer] Specialist: Kamlesh Kaufman MD Neutrophil Count (ANC) 7.02 x1000 Normal 1.40-8.80 [facility] Comment on above: Performed By: #### 9 [id number], 726147, 759796 #### [facility] [address] [place] [address] 99683 [employer] Specialist: Kamlesh Kaufman MD Neutrophils/100 WBC (Bld) 71.8 % Normal [facility] Comment on above: Performed By: #### 9 510556, 558822, 073333 #### [facility] [address] [place] [address]6833 [employer] Specialist: Kamlesh Kaufman MD BASICMETAon 03-18-2025 Calcium [Mass/Vol] 9.2 mg/dL Normal 8.7-10.4 [facility] Comment on above: Performed By: #### 9 118370, 546005, 141745 #### [facility] [address] [place] [address]859 [employer] Specialist: Kamlesh Kaufman MD Chloride [Moles/Vol] 104 mmol/L Normal 98-107 [facility] Comment on above: Performed By: #### 9 565045, 627792, 388085 #### [facility] [address] [place] [address] 28496 [employer] Specialist: Kamlesh Kaufman MD CO2 [Moles/Vol] 23.0 mmol/L Normal 20.0-31.0 [facility] Comment on above: Performed By: #### 9 [id number], 081421, 857484 #### [facility] [address] [place] [address]7716 [employer] Specialist: Kamlesh Kaufman MD Creatinine [Mass/Vol] 0.6 mg/dL Normal 0.6-1.1 [facility] Comment on above: Performed By: #### 9 206803, 322323, 763197 #### [facility] [address] [place] [address] [employer] Specialist: Kamlesh Kaufman MD GFR AA >60 Normal [facility] Comment on above: Result Comment: Afri can Gibraltarian GFR Calc Medical judgement is necessary to interpret GFR. The calculated GFR may not accurately reflect renal status in patients >70 years, women, acutely ill hospitalized patients and patients with acute renal failure or known renal disease. The MDRD GFR formula is valid only for adults greater than 18 years of age. Note: Creatinine clearance (not GFR) should be used for drug dosing. Calculated result performed using the MDRD GFR equation Performed By: #### 9 [id number], 788112, 174829 #### [facility] [address] [place] [address] 24555 [employer] Specialist: Kamlesh Kaufman MD Glomerular Filtration Rate >60 Normal [facility] Comment on above: Result Comment: Non- GFR Calc Medical judgement is necessary to interpret GFR. The calculated GFR may not accurately reflect renal status in patients >70 years, women, acutely ill hospitalized patients and patients with acute renal failure or known renal disease. The MDRD GFR formula is valid only for adults greater than 18 years of age. Note: Creatinine clearance (not GFR) should be used for drug dosing. Calculated result performed using the MDRD GFR equation Performed By: #### 9 [id number], 364869, 140357 #### [facility] [address] [place] [address] [employer] Specialist: Kamlesh aKufman MD Glucose [Mass/Vol] 190 mg/dL High 74-106 [facility] Comment on above: Performed By: #### 9 105744, 243460, 083732 #### [facility] [address] [place] [address] [employer] Specialist: Kamlesh Kaufman MD Osmolality [Osmolality] 274 mosm/kg Low 275-295 [facility] Comment on above: Performed By: #### 9 016955, 222233, 747036 #### [facility] [address] [place] [address]321 [employer] Specialist: Kamlesh Kaufman MD Potassium [Moles/Vol] 4.3 mmol/L Normal 3.5-5.1 [facility] Comment on above: Result Comment: Spec imen slightly hemolyzed. Results may be affected. Performed By: #### 9 [id number], 819774, 647019 #### [facility] [address] [place] [address]60 [employer] Specialist: Kamlesh Kaufman MD Sodium [Moles/Vol] 135 mmol/L Normal 135-145 [facility] Comment on above: Performed By: #### 9 695707, 406476, 638002 #### [facility] [address] [place] [address] 98151 [employer] Specialist: Kamlesh Kaufman MD Urea nitrogen [Mass/Vol] 9 mg/dL Normal 9-23 [facility] Comment on above: Result Comment: - Ve nipuncture should occur prior to N-Acetyl Cysteine (NAC) or Metamizole (Sulpyrine) administration due to the potential for falsely depressed results. - Blood samples from some patients with monoclonal gammopathies may produce falsely elevated results Performed By: #### 9 597562, 348681, 771374 #### [facility] [address] [place] [address]26 [employer] Specialist: Kamlesh Kaufman MD Urea nitrogen/Creatinine [Mass ratio] 15.0 mg/mg Normal [facility] Comment on above: Performed By: #### 9 328072, 747155, 319044 #### [facility] [address] [place] [address] 66985 [employer] Specialist: Kamlesh Kaufman MD HEMOon 03-18-2025 DIFF? No Normal [facility] Comment on above: Performed By: #### 9 234735, 778567, 706180 #### [facility] [address] [place] [address] 67349 [employer] Specialist: Kamlesh Kaufman MD Erythrocyte distribution width (RBC) [Ratio] 13.6 % Normal 11.5-14.5 [facility] Comment on above: Performed By: #### 9 943983, 730289, 373404 #### [facility] [address] [place] [address] 15113 [employer] Specialist: Kamlesh Kaufman MD Hematocrit (Bld) [Volume fraction] 41.3 % Normal 41.0-52.0 [facility] Comment on above: Performed By: #### 9 780377, 986470, 864907 #### [facility] [address] [place] [address] 69945 [employer] Specialist: Kamlesh Kaufman MD Hemoglobin (Bld) [Mass/Vol] 14.1 g/dL Normal 13.5-17.5 [facility] Comment on above: Performed By: #### 9 [id number], 712035, 914910 #### [facility] [address] [place] [address] 96454 [employer] Specialist: Kamlesh Kaufman MD Instr WBC 9.8 Normal [facility] Comment on above: Performed By: #### 9 105443, 366864, 173102 #### [facility] [address] [place] [address] 89693 [employer] Specialist: Kamlesh Kaufman MD MCH (RBC) [Entitic mass] 30.2 pg Normal 27.0-34.0 [facility] Comment on above: Performed By: #### 9 134057, 395801, 333313 #### [facility] [address] [place] [address] 74335 [employer] Specialist: Kamlesh Kaufman MD MCHC (RBC) [Mass/Vol] 34.2 g/dL Normal 32.0-37.0 [facility] Comment on above: Performed By: #### 9 941141, 109424, 705955 #### [facility] [address] [place] [address] 08419 [employer] Specialist: Kamlesh Kaufman MD MCV (RBC) [Entitic vol] 88.1 fL Normal 80.0-100.0 [facility] Comment on above: Performed By: #### 9 295650, 342534, 133827 #### [facility] [address] [place] [address] 14909 [employer] Communications Specialist: Kamlesh Kaufman MD Nucleated RBC 0 /100WBC Normal [facility] Comment on above: Performed By: #### 9 395552, 511760, 632294 #### [facility] [address] [place] [address] 72559 [employer] Specialist: Kamlesh Kaufman MD Platelet 246 x10 Normal 150-450 [facility] Comment on above: Performed By: #### 9 751308, 615777, 582270 #### [facility] [address] [place] [address] 09891 [employer] Communications Specialist: Kamelsh Kaufman MD Platelet mean volume (Bld) [Entitic vol] 9.4 fL Normal 7.4-10.4 [facility] Comment on above: Performed By: #### 9 373297, 622591, 241608 #### [facility] [address] [place] [address]307 [employer] Communications Specialist: Kamlesh Kaufman MD RBC 4.69 x10 Low 4.70-6.10 [facility] Comment on above: Result Comment: Note : RBC morphology is normal unless otherwise stated. Evaluation performed only if differential is requested. Performed By: #### 9 110614, 677703, 997218 #### [facility] [address] [place] [address] 22515 [employer] Specialist: Kamlesh Kaufman MD WBC 9.8 x10 Normal 4.5-11.0 [facility] Comment on above: Performed By: #### 9 511722, 058613, 618198 #### [facility] [address] [place] [address] 57514 [employer] Specialist: Kamlesh Kaufman MD AUTO DIFFon 03-17-2025 Baso Count 0.10 x1000 Normal 0.00-0.20 [facility] Comment on above: Order Comment: while on Heparin Performed By: #### 1 [id number], 060906, 1666789 #### [facility] [address] [place] [address]122 [employer] Communications Specialist: Kamlseh Kaufman MD Basos % 1.1 % Normal [facility] Comment on above: Order Comment: while on Heparin Performed By: #### 1 31139, 559317, 2335452 #### [facility] [address] [place] [address] 96592 [employer] Specialist: Kamlesh Kaufman MD Eos Count 0.20 x1000 Normal 0.00-0.50 [facility] Comment on above: Order Comment: while on Heparin Performed By: #### 1 54475, 333219, 0513191 #### [facility] [address] [place] [address] 55300 [employer] Specialist: Kamlesh Kaufman MD Eosinophils/100 WBC (Bld) 2.1 % Normal [facility] Comment on above: Order Comment: while on Heparin Performed By: #### 1 22315, 741456, [id number] #### [facility] [address] [place] [address] 33775 [employer] Specialist: Kamlesh Kaufman MD Lymph Count 1.26 x1000 Normal 1.20-4.80 [facility] Comment on above: Order Comment: while on Heparin Performed By: #### 1 17827, 064907, [id number] #### [facility] [address] [place] [address] 52767 [employer] Specialist: Kamlesh Kaufman MD Lymphocytes/100 WBC (Bld) 13.2 % Normal [facility] Comment on above: Order Comment: while on Heparin Performed By: #### 1 08165, 521539, 0834115 #### [facility] [address] [place] [address] 13966 [employer] Specialist: Kamlesh Kaufman MD [place] Count 0.82 x1000 Normal 0.10-1.00 [facility] Comment on above: Order Comment: while on Heparin Performed By: #### 1 26684, 220952, 1957203 #### [facility] [address] [place] [address] 31895 [employer] Specialist: Kamlesh Kaufman MD Monocytes/100 WBC (Bld) 8.7 % Normal [facility] Comment on above: Order Comment: while on Heparin Performed By: #### 1 59612, 809055, [id number] #### [facility] [address] [place] [address] 99186 [employer] Specialist: Kamlesh Kaufman MD Neutrophil Count (ANC) 7.14 x1000 Normal 1.40-8.80 [facility] Comment on above: Order Comment: while on Heparin Performed By: #### 1 61229, 293918, 6879682 #### [facility] [address] [place] [address] 79492 [employer] Specialist: Kamlesh Kaufman MD Neutrophils/100 WBC (Bld) 75.0 % Normal [facility] Comment on above: Order Comment: while on Heparin Performed By: #### 1 55207, 316483, [id number] #### [facility] [address] [place] [address] 91648 [employer] Specialist: Kamlesh Kaufman MD Admission Assessment Adulton 03-17-2025 Admission Assessment Adult Adult Admission Data Entered On: 03/16/2025 20:51 EDT Performed On: 03/16/2025 20:51 EDT by Jered Garrett RN Patient Safety Grid Allergy Molder Automobile Carpets : No Latex Tote : No Diabetic Molder Automobile Carpets : Yes Fall Risk Molder Automobile Carpets : Yes No Blood Molder Automobile Carpets : No Restricted Extremity Band On : No Jered Garrett RN - 03/17/2025 2:06 EDT ID Band on and Verified : Yes Jered Garrett RN - 03/16/2025 20:51 EDT (As Of: 03/17/2025 02:08:21 EDT) Allergies (Active) No Known Medication Allergies Estimated Onset Date: Unspecified ; Created By: Jered Garrett RN; Reaction Status: Active ; Category: Drug ; Substance: No Known Medication Allergies ; Type: Allergy ; Updated By: Jered Garrett RN; Reviewed Date: 03/16/2025 21:15 EDT Subjective Pain Symptoms : No Numeric Pain Scale Acceptable Intensity : 0 = No Pain General Symptoms : None Sensory Deficits : None Cardiopulmonary Symptoms : Chest pain/pressure at rest, Chest pain/pressure with activity, Shortness of breath GI Symptoms : None Skin Symptoms : Dryness/excessive Genitourinary Symptoms : None Neuromuscular Symptoms : Numbness Hours of Sleep : 6 hr (Comment: 6 to 8 hours [Skylar Singleton RN - 03/16/2025 22:18 EDT] ) Abuse/Violence Concerns? : Patient denies Skylar Singleton RN - 03/16/2025 22:18 EDT Depression Screening Patient able to verbalize? : Yes Feeling Down, Depressed, Hopeless : Not at all Little Interest - Pleasure in Activities : Not at all Initial Depression Screen Score : 0 Depression Screening Score 0 : No IP Pt being evaluated or treated for BH conditions : No Skylar Singleton RN - 03/16/2025 22:18 EDT Emeli Coma Eye Opening Response Emeli : Spontaneously Best Verbal Response Richardson : Oriented Best Motor Response Emeli : Obeys simple commands Richardson Coma Score : 15 Jered Garrett RN - 03/17/2025 2:06 EDT Neuro Characteristics of Speech : Clear Orientation : Oriented x 3 Level of Consciousness : Alert Affect / Behavior : Calm Sensory Perception Ike : Slightly limited Extremity Movement : Equal Gait : Steady Aspiration Risk : None CN VII Facial Expression and Symmetry : Facial movement symmetrical Jered Garrett RN - 03/17/2025 2:06 EDT CardioVascular Heart Rhythm : Regular Capillary Refill : Less than 2 seconds Edema : Localized Jered Garrett RN - 03/17/2025 2:06 EDT Edema Detailed Grid Pretibial Edema Ankle Edema Pedal Edema Bilateral : 1+ trace/2mm 1+ trace/2mm 1+ trace/2mm Gerry CRABTREE, [facility] 03/17/2025 2:06 EDT Gerry CRABTREE, [facility] 03/17/2025 2:06 EDT Gerry CRABTREE, [facility] 03/17/2025 2:06 EDT Pulses Detailed Grid Radial Pulse, Left : 2+ Normal Radial Pulse, Right : 2+ Normal Dorsalis Pedis Pulse, Left : 2+ Normal Dorsalis Pedis Pulse, Right : 2+ Normal Gerry CRABTREE, [facility] 03/17/2025 2:06 EDT Respiratory Respirations : Unlabored Respiratory Pattern Description : Regular Gerry CRABTREE, [facility] 03/17/2025 2:06 EDT BRIAN : Clear LLL : Clear RUL : Clear RML : Clear RLL : Clear Gerry CRABTREE, [facility] 03/17/2025 2:06 EDT Cough : None Gerry CRABTREE, [facility] 03/17/2025 2:06 EDT Musculoskeletal Activity Ike : Walks occasionally Mobility Ike : Slightly limited Ambulatory Devices : None Special Orthopedic Devices : None ADLs : Independent Gerry CRABTREE, [facility] 03/17/2025 2:06 EDT GI Abdomen Description : Symmetric Abdomen Palpation : Soft Gerry CRABTREE, [facility] 03/17/2025 2:06 EDT Bowel Sounds Grid LUQ : Present RUQ : Present LLQ : Present RLQ : Present Gerry CRABTREE, [facility] 03/17/2025 2:06 EDT Passing Flatus : No Bowel Movement Last Date Known : No Gerry CRABTREE, [facility] 03/17/2025 2:06 EDT Bladder Distention : Absent Gerry CRABTREE, [facility] 03/17/2025 2:06 EDT Integumentary Skin Integrity : Intact Skin Temperature : Warm Skin Color : [place] Skin Turgor : Elastic Mucous Membrane Color : [place] Mucous Membrane Description : Moist Skin Description : Dry Gerry CRABTREE, [facility] 03/17/2025 2:06 EDT Present on Admission Medical Devices : None Medical Devices for Med Administration : None Angela Smith RN [facility] 03/16/2025 22:18 EDT Education Responsible Learner/s Present : No Data Available Barriers to Learning : None evident TeachBack Methodology : TeachBack, Explanation Angela Smith RN Skylar - 03/16/2025 22:18 EDT Equipment/Devices : Verbalizes understanding Pain Management : Verbalizes understanding Safety, Fall : Verbalizes understanding Skylar Singleton RN - 03/16/2025 22:18 EDT Notifications PCP notified of your admission? : No Emergency Contact notified of your admission? : No Skylar Singleton RN - 03/16/2025 22:18 EDT Normal [facility] Comment on above: Order Comment: Order entered secondary to admissionVirtual nurse section completed. Bedside nurse to complete remaining section. Anti-Xa UFHon 03-17-2025 Anti-Xa UFH 0.44 IU/mL Normal [facility] Comment on above: Performed By: #### 9 [id number] #### [facility] [address] [place], [place] [id number] Military Communications Specialist: Kamlesh Kaufman MD BASICMETAon 03-17-2025 Calcium [Mass/Vol] 9.4 mg/dL Normal 8.7-10.4 [facility] Comment on above: Performed By: #### 1 28875, 929459, [id number] #### [facility] [address] [place] [address] [employer] Specialist: Kamlesh Kaufman MD Chloride [Moles/Vol] 101 mmol/L Normal 98-107 [facility] Comment on above: Performed By: #### 1 67640, 050132, [id number] #### [facility] [address] [place] [address] [employer] Specialist: Kamlesh Kaufman MD CO2 [Moles/Vol] 29.0 mmol/L Normal 20.0-31.0 [facility] Comment on above: Performed By: #### 1 09807, 021848, [id number] #### [facility] [address] [place] [address] [employer] Specialist: Kamlesh Kaufman MD Creatinine [Mass/Vol] 0.7 mg/dL Normal 0.6-1.1 [facility] Comment on above: Performed By: #### 1 84817, 566549, [id number] #### [facility] [address] [place] [address] Military Communications Specialist: Kamlesh Kaufman MD GFR AA >60 Normal [facility] Comment on above: Result Comment: Afri can [place] GFR Calc Medical judgement is necessary to interpret GFR. The calculated GFR may not accurately reflect renal status in patients >70 years, women, acutely ill hospitalized patients and patients with acute renal failure or known renal disease. The MDRD GFR formula is valid only for adults greater than 18 years of age. Note: Creatinine clearance (not GFR) should be used for drug dosing. Calculated result performed using the MDRD GFR equation Performed By: #### 1 24234, [id number], [id number] #### [facility] [address] [place] [address] [employer] Specialist: Kamlesh Kaufman MD Glomerular Filtration Rate >60 Normal [facility] Comment on above: Result Comment: Non- GFR Calc Medical judgement is necessary to interpret GFR. The calculated GFR may not accurately reflect renal status in patients >70 years, women, acutely ill hospitalized patients and patients with acute renal failure or known renal disease. The MDRD GFR formula is valid only for adults greater than 18 years of age. Note: Creatinine clearance (not GFR) should be used for drug dosing. Calculated result performed using the MDRD GFR equation Performed By: #### 1 88274, 589481, [id number] #### [facility] [address] [place] [address] [employer] Specialist: Kamlesh Kaufman MD Glucose [Mass/Vol] 200 mg/dL High 74-106 [facility] Comment on above: Performed By: #### 1 13125, 827738, [id number] #### [facility] [address] [place] [address] Military Communications Specialist: Kamlesh Kaufman MD Osmolality [Osmolality] 276 mosm/kg Normal 275-295 [facility] Comment on above: Performed By: #### 1 55859, 286122, [id number] #### [facility] [address] [place] [address] Military Communications Specialist: Kamlesh Kaufman MD Potassium [Moles/Vol] 3.8 mmol/L Normal 3.5-5.1 [facility] Comment on above: Performed By: #### 1 47336, 589053, 1053932 #### [facility] [address] [place] [address] [employer] Specialist: Kamlesh Kaufman MD Sodium [Moles/Vol] 136 mmol/L Normal 135-145 [facility] Comment on above: Performed By: #### 1 79235, 251714, 8548391 #### [facility] [address] [place] [address] [employer] Specialist: Kamlesh Kaufman MD Urea nitrogen [Mass/Vol] 8 mg/dL Low 9-23 [facility] Comment on above: Result Comment: - Ve nipuncture should occur prior to N-Acetyl Cysteine (NAC) or Metamizole (Sulpyrine) administration due to the potential for falsely depressed results. - Blood samples from some patients with monoclonal gammopathies may produce falsely elevated results Performed By: #### 1 91662, 057377, [id number] #### [facility] [address] [place] [address] [employer] Specialist: Kamlesh Kaufman MD Urea nitrogen/Creatinine [Mass ratio] 11.4 mg/mg Normal [facility] Comment on above: Performed By: #### 1 02150, 934204, [id number] #### [facility] [address] [place] [address] [employer] Specialist: Kamlesh Kaufman MD Cardiac Catheterization-Repo rton 03-17-2025 Cardiac Catheterization-Report GALLO ESCOBAR :1960 [facility]:[id number] Registration Date:03/16/2025 [facility] CARDI[facility] CATHETER[facility] REPORT Procedure Details Shipping Associate: Gualberto Mcclain M.D. Shipping Support: None Indication for Procedure/Preprocedure Diagnosis: Non-ST elevation [place] Post Procedure Diagnosis: Successful PCI IDALIA x 2 from proximal to mid LAD Procedures Performed: Intravascular ultrasound LAD, PCI LAD IDALIA x 2 Hemostasis Method: Mynx Complications: None Estimated Blood Loss: Minimal Catheters/Drains: None I was asked to perform a intervention to the LAD by Dr. Hawkins please refer to his note for the details. Procedure: The patient was brought to the cardiac catheterization laboratory in the fasting state. Informed consent was obtained prior and the patient was prepped and draped in the usual sterile fashion. A time out was performed. Femoral artery access had already been obtained with a 5 [place] sheath. Angiography was performed showing the access site to be in the superficial femoral artery. The 5 [place] sheath was upsized to a 6 [place]. Interventional Portion: Heparin was used to achieve therapeutic anticoagulation Please see procedure log for doses and ACT results. A 6 [place] EBU 3.75 guide catheter was used to engage the left coronary artery. The lesion was crossed with a run through .14 wire. Pre-dilatation was performed with a 2.5 mm by 15 mm [place] balloon. This did restore flow into the LAD which showed moderate to severe diffuse disease from the proximal to mid LAD therefore 2 long stents were used. A 3.0 x 38 mm Synergy XD IDALIA overlapping with a 3.5 x 20 mm Synergy XD IDALIA. Intravascular ultrasound was done to size the vessel. The stents were dilated using 3.0,3.5 and a 4.0 noncompliant balloon from distal to proximal. Intravascular sound showed the stents to be well opposed Final angiography was performed which showed excellent results and no complications. All guides and catheters were then removed. Hemostasis obtained using a Mynx Lesion 1 Location: Proximal to mid LAD Pre Intervention Stenosis: 100% Post Intervention Stenosis: 0% Pre Intervention Flow: JEANE 1 Post Intervention Flow: JEANE 3 Impression/Recommendat ions: 1. Normal Saline IV Hydration 2. Dual Antiplatelet therapy with aspirin 81 mg and Brilinta 90 mg PO bid for 1 year 3. Successful PCI with IDALIA times 2 to the LAD with 3.0 x 30 mm overlapping 3.5 x 20 mm Synergy XD IDALIA. Postdilated with a 3.0,3.5 and 4.0 noncompliant balloon sequentially from distal to proximal. 4. Anticipate discharge home tomorrow Normal [facility] HEMOon 03-17-2025 DIFF? No Normal [facility] Comment on above: Order Comment: while on Heparin Performed By: #### 1 60559, 947063, [id number] #### [facility] [address] [place] [address] [employer] Specialist: Kamlesh Kaufman MD Erythrocyte distribution width (RBC) [Ratio] 13.5 % Normal 11.5-14.5 [facility] Comment on above: Order Comment: while on Heparin Performed By: #### 1 24652, 215574, 7374672 #### [facility] [address] [place] [address] [employer] Specialist: Kamlesh Kaufman MD Hematocrit (Bld) [Volume fraction] 44.1 % Normal 41.0-52.0 [facility] Comment on above: Order Comment: while on Heparin Performed By: #### 1 63106, 569909, [id number] #### [facility] [address] [place] [address] [employer] Specialist: Kamlesh Kaufman MD Hemoglobin (Bld) [Mass/Vol] 14.9 g/dL Normal 13.5-17.5 [facility] Comment on above: Order Comment: while on Heparin Performed By: #### 1 31292, 040267, 2538161 #### [facility] [address] [place] [address] [employer] Specialist: Kamlesh Kaufman MD Instr WBC 9.5 Normal [facility] Comment on above: Order Comment: while on Heparin Performed By: #### 1 00644, 317164, [id number] #### [facility] [address] [place] [address] [employer] Specialist: Kamlesh Kaufman MD MCH (RBC) [Entitic mass] 30.1 pg Normal 27.0-34.0 [facility] Comment on above: Order Comment: while on Heparin Performed By: #### 1 99174, 057444, 2997950 #### [facility] [address] [place] [address] [employer] Communications Specialist: Kamlesh Kaufman MD MCHC (RBC) [Mass/Vol] 33.8 g/dL Normal 32.0-37.0 [facility] Comment on above: Order Comment: while on Heparin Performed By: #### 1 26801, 029718, 4911219 #### [facility] [address] [place] [address] [employer] Specialist: Kamlesh Kaufman MD MCV (RBC) [Entitic vol] 89.1 fL Normal 80.0-100.0 [facility] Comment on above: Order Comment: while on Heparin Performed By: #### 1 35501, 242949, 2785006 #### [facility] [address] [place] [address] [employer] Specialist: Kamlesh aKufman MD Nucleated RBC 0 /100WBC Normal [facility] Comment on above: Order Comment: while on Heparin Performed By: #### 1 15754, 177433, [id number] #### [facility] [address] [place] [address] [employer] Specialist: Kamlesh Kaufman MD Platelet 267 x10 Normal 150-450 [facility] Comment on above: Order Comment: while on Heparin Performed By: #### 1 20430, 260096, 8545660 #### [facility] [address] [place] [address] [employer] Specialist: Kamlesh Kaufman MD Platelet mean volume (Bld) [Entitic vol] 9.9 fL Normal 7.4-10.4 [facility] Comment on above: Order Comment: while on Heparin Performed By: #### 1 43489, 923956, 9303338 #### [facility] [address] [place] [address] [employer] Specialist: Kamlesh Kaufman MD RBC 4.95 x10 Normal 4.70-6.10 [facility] Comment on above: Order Comment: while on Heparin Result Comment: Note : RBC morphology is normal unless otherwise stated. Evaluation performed only if differential is requested. Performed By: #### 1 37448, 093565, [id number] #### [facility] [address] [place] [address] Military Communications Specialist: Kamlesh Kaufman MD WBC 9.5 x10 Normal 4.5-11.0 [facility] Comment on above: Order Comment: while on Heparin Performed By: #### 1 87373, 569521, 0545245 #### [facility] [address] [place] [address] [employer] Specialist: Kamlesh Kaufman MD POC Raghav 03-17-2025 POC ACT 308 seconds [facility] Comment on above: Result Comment: The target value anticipated for sheath removal is less than or equal to 170 seconds or as indicated by the physician. Panic values are designated by the physician and are individualized to each patient. Performed By: #### 1 [id number] #### [facility] [address] [place] [address] [employer] Specialist: Kamlesh Kaufman MD POC ACT 306 seconds Normal [facility] Comment on above: Result Comment: The target value anticipated for sheath removal is less than or equal to 170 seconds or as indicated by the physician. Panic values are designated by the physician and are individualized to each patient. Performed By: #### 9 733409, 438749, 141820 #### [facility] [address] [place] [address] [employer] Specialist: Kamlesh Kaufman MD POC Glucoseon 03-17-2025 Glucose [Mass/Vol] 224 mg/dL High 72-100 [facility] Comment on above: Performed By: #### 9 020929, 924567, 620705 #### [facility] [address] [place] [address] [employer] Specialist: Kamlesh Kaufman MD Glucose [Mass/Vol] 187 mg/dL High 72-100 [facility] Comment on above: Performed By: #### 9 488455, 303013, 549670 #### [facility] [address] [place] [address] [employer] Communications Specialist: Kamlesh Kaufman MD Glucose [Mass/Vol] 217 mg/dL [facility] 72-100 [facility] Comment on above: Performed By: #### 1 [id number] #### [facility] [address] [place] [address] [employer] Specialist: Kamlesh Kaufman MD Glucose [Mass/Vol] 252 mg/dL [facility] 72-100 [facility] Comment on above: Performed By: #### 9 939943, 665155, 245528 #### [facility] [address] [place] [address] [employer] Specialist: Kamlesh Kaufman MD Urine Cultureon 03-17-2025 URC Organism is too fastidious for routine susceptibility studies. Urine Culture Urine Culture [place] pseudomesenteroide [place] Count 11,000-25,000 Normal [facility] Comment on above: Performed By: #### M 100.2200 #### [facility] [address] [facility]. [place], [place], [address] ALLIED HEALTHon 03-16-2025 ALLIED HEALTH HNO ID: [id number] Author: DAIANA KEMP RT(R) Service: Radiology Author Type: Technologist Type: Allied Health Filed: 03/16/2025 04:26 Note Text: Radiology Service Progress Note PATIENT NAME: Gallo Escobar DATE OF SERVICE: March 16, 2025 TIME: 4:26 AM PATIENT IDENTITY VERIFICATION COMPLETED USING TWO (2) IDENTIFIERS: Name and Date of confirmed by patient verbally and Name and Date of confirmed by identification band. FALL SCREENING: Has the patient had 2 falls in the last year or 1 fall with injury or currently using an Ambulatory Assistive Device (Walker, Cane, Wheelchair, Crutches, etc.)? Emergency Room Patient: Screened in ED PATIENT GENDER DATA: Assigned male at PATIENT RELEVANT IMPLANT DATA REVIEWED: Not Applicable PATIENT PRESENTS WITH AN IMPLANTABLE OR ATTACHED OPHTHALMIC AIDE: No RADIOLOGY DEPARTMENT: General X-ray: Exam(s) Completed: Chest X-Ray PERIPHERAL IV DATA: Not applicable SIGNED BY: RT Matias(R) March 16, 2025 4:26 AM Normal [facility] Anti-Xa UFHon 03-16-2025 Anti-Xa UFH 0.61 IU/mL Normal [facility] Comment on above: Order Comment: Basel ine lab if concern for lingering effects of eliquis / xarelto Performed By: #### 9 912331, 871120, 093483 #### [facility] [address] [place] [id number] Military Communications Specialist: Kamlesh Kaufman MD Basic Admission Informationo n 03-16-2025 Basic Admission Information Basic Admission Information Entered On: 03/16/2025 21:10 EDT Performed On: 03/16/2025 21:05 EDT by Adilia Burkett Admission Height/Weight Height/Length Measured : 185.42 cm(Converted to: 6.08 ft, 73.00 in) Height/Length Estimated : 185.42 cm(Converted to: 6.08 ft, 73.00 in) Height/Length Dosing : 185.42 cm(Converted to: 6.08 ft, 73.00 in) Weight Measured : 143.1 kg(Converted to: 315 lb 8 oz, 315.482 lb) Weight Dosing : 143.1 kg(Converted to: 5,047.705 oz, 315.482 lb) BSA Measured : 2.71 BSA Dosing : 2.71 Body Mass Index Measured : 41.62 kg/m2 Body Mass Index Dosing : 42 Weight Measured Type of Scale : Standing Scale Last Documented Height/Length : Height/Length Estimated: No results available. Height/Length Measured: No results available. Height/Length Dosing: No results available. Last Documented Weight and Type of Scale Used : Weight Measured Type of Scale: No results available. Weight Measured: No results available. Weight Dosing: No results available. 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 Monetary Items : Other: ID Adilia Burkett - 03/16/2025 21:05 EDT Room Orientation/Facility Policy Reviewed : Yes Room Orientation/Policy Reviewed With : Patient Patient Safety : Bed / Chair Alarm, Bed in low position, Call device within reach, Fall pupil personnel services director ID Band, Falling [place], ID band check, Mobility support items readily available, Night light, Non-Slip footwear, Personal items within reach, Sensory aids within reach, Upper/Half-length side-rails up, Traffic path in room free of clutter, Wheels locked Demonstrates Ability to Use Call Light Successfully : Yes Maricruz Rao Kavonleobardo - 03/16/2025 21:05 EDT Normal [facility] Comment on above: Order Comment: Order entered secondary to admission CBC W Auto Differential pane l (Bld)on 03-16-2025 Basophils (Bld) [#/Vol] 0.08 10*3/uL Normal <0.11 [facility] Comment on above: Order Comment: Speci men Type: BLOOD SPECIMENOrdering Facility: [facility] Address: [address] [place] [address] Performed By: #### 5 7021-8 ####[facility]ORY[facility] [id number] [place] [address] [place] Basophils/100 WBC (Bld) 0.7 % Normal [facility] Comment on above: Order Comment: Speci men Type: BLOOD SPECIMENOrdering Facility: [facility] Address: [address] [place] [address] Performed By: #### 5 7021-8 ####[facility]ORY[facility] [id number] [place] [address] [place] Differential cell count method Nom (Bld) Auto Normal [facility] Comment on above: Order Comment: Speci men Type: BLOOD SPECIMENOrdering Facility: [facility] Address: [address] [place] [address] Performed By: #### 5 7021-8 ####[facility] [id number] [address] Eosinophils (Bld) [#/Vol] 0.28 10*3/uL Normal <0.46 [facility] Comment on above: Order Comment: Speci men Type: BLOOD SPECIMENOrdering Facility: [facility] Address: [address] [place] [address] Performed By: #### 5 7021-8 ####[facility] [id number] [address] [place] Eosinophils/100 WBC (Bld) 2.6 % Normal [facility] Comment on above: Order Comment: Speci men Type: BLOOD SPECIMENOrdering Facility: [facility] Address: [address] [place] [address] Performed By: #### 5 7021-8 ####[facility] [id number] [address] [place] Erythrocyte distribution width (RBC) [Ratio] 12.7 % Normal 11.5-15.0 [facility] Comment on above: Order Comment: Speci men Type: BLOOD SPECIMENOrdering Facility: [facility] Address: [address] [place] [address] Performed By: #### 5 7021-8 ####[facility] [id number] [address] Hematocrit (Bld) [Volume fraction] 44.6 % Normal 39.0-51.0 [facility] Comment on above: Order Comment: Speci men Type: BLOOD SPECIMENOrdering Facility: [facility] Address: [address] [place] [address] Performed By: #### 5 7021-8 ####[facility] [id number] [address] [place] Hemoglobin (Bld) [Mass/Vol] 15.0 g/dL Normal 13.0-17.0 [facility] Comment on above: Order Comment: Speci men Type: BLOOD SPECIMENOrdering Facility: [facility] Address: [address] [place] [address] Performed By: #### 5 7021-8 ####[facility]LS[facility] LABORATORYCLIA [id number] [address] Immature granulocytes (Bld) [#/Vol] 0.03 10*3/uL Normal <0.10 [facility] Comment on above: Order Comment: Speci men Type: BLOOD SPECIMENOrdering Facility: [facility] Address: [address] [place] [address] Performed By: #### 5 7021-8 ####CARLSON LABORATORYCLIA [id number] [address] Immature granulocytes/100 WBC (Bld) 0.3 % Normal [facility] Comment on above: Order Comment: Speci men Type: BLOOD SPECIMENOrdering Facility: [facility] Address: [address] [place] [address] Performed By: #### 5 7021-8 ####CARLSON LABORATORYCLIA [id number] [address] [place] Lymphocytes (Bld) [#/Vol] 2.99 10*3/uL Normal 1.00-4.00 [facility] Comment on above: Order Comment: Speci men Type: BLOOD SPECIMENOrdering Facility: [facility] Address: [address] [place] [address] Performed By: #### 5 7021-8 ####CARLSON LABORATORYCLIA [id number] [address] Lymphocytes/100 WBC (Bld) 27.8 % Normal [facility] Comment on above: Order Comment: Speci men Type: BLOOD SPECIMENOrdering Facility: [facility] Address: [address] [place] [address] Performed By: #### 5 7021-8 ####CARLSON LABORATORYCLIA [id number] [place] [address] [place] MCH (RBC) [Entitic mass] 29.5 pg Normal 26.0-34.0 [facility] Comment on above: Order Comment: Speci men Type: BLOOD SPECIMENOrdering Facility: [facility] Address: [address] [place] [address] Performed By: #### 5 7021-8 ####CARLSON LABORATORYCLIA [id number] [place] [address] [place] MCHC (RBC) [Mass/Vol] 33.6 g/dL Normal 30.5-36.0 [facility] Comment on above: Order Comment: Speci men Type: BLOOD SPECIMENOrdering Facility: [facility] Address: [address] [place] [address] Performed By: #### 5 7021-8 ####CARLSON LABORATORYCLIA [id number] [address] MCV (RBC) [Entitic vol] 87.6 fL Normal 80.0-100.0 [facility] Comment on above: Order Comment: Speci men Type: BLOOD SPECIMENOrdering Facility: [facility] Address: [address] [place] [address] Performed By: #### 5 7021-8 ####CARLSON LABORATORYCLIA [id number] [place] [address] [place] Monocytes (Bld) [#/Vol] 1.05 10*3/uL High <0.87 [facility] Comment on above: Order Comment: Speci men Type: BLOOD SPECIMENOrdering Facility: [facility] Address: [address] [place] [address] Performed By: #### 5 7021-8 ####CARLSON LABORATORYCLIA [id number] [address] Monocytes/100 WBC (Bld) 9.8 % Normal [facility] Comment on above: Order Comment: Speci men Type: BLOOD SPECIMENOrdering Facility: [facility] Address: [address] [place] [address] Performed By: #### 5 7021-8 ####CARLSON LABORATORYCLIA [id number] [place] [address] [place] Neutrophils (Bld) [#/Vol] 6.31 10*3/uL Normal 1.45-7.50 [facility] Comment on above: Order Comment: Speci men Type: BLOOD SPECIMENOrdering Facility: [facility] Address: [address] [place] [address] Performed By: #### 5 7021-8 ####CARLSON LABORATORYCLIA [id number] [address] Neutrophils/100 WBC (Bld) 58.8 % Normal [facility] Comment on above: Order Comment: Speci men Type: BLOOD SPECIMENOrdering Facility: [facility] Address: [facility] [place] [address] Performed By: #### 5 7021-8 ####CARLSON LABORATORYCLIA [id number] [address] [place] Nucleated RBC (Bld) [#/Vol] 10*3/uL Normal <0.01 [facility] Comment on above: Order Comment: Speci men Type: BLOOD SPECIMENOrdering Facility: [facility] Address: [address] [place] [address] Performed By: #### 5 7021-8 ####CARLSON LABORATORYCLIA [id number] [address] Nucleated RBC/100 WBC (Bld) [Ratio] 0.0 /100 WBC Normal [facility] Comment on above: Order Comment: Speci men Type: BLOOD SPECIMENOrdering Facility: [facility] Address: [address] [place] [address] Performed By: #### 5 7021-8 ####CARLSON LABORATORYCLIA [id number] [address] [place] Platelet mean volume (Bld) [Entitic vol] 11.4 fL Normal 9.0-12.7 [facility] Comment on above: Order Comment: Speci men Type: BLOOD SPECIMENOrdering Facility: [facility] Address: [address] [place] [address] Performed By: #### 5 7021-8 ####CARLSON LABORATORYCLIA [id number] [place] [address] [place] Platelets (Bld) [#/Vol] 296 10*3/uL Normal 150-400 [facility] Comment on above: Order Comment: Speci men Type: BLOOD SPECIMENOrdering Facility: [facility] Address: [address] [place] [address] Performed By: #### 5 7021-8 ####HARF[facility] LABORATORYCLIA [id number] [place] [address] [facility] RBC (Bld) [#/Vol] 5.09 10*6/uL Normal 4.20-6.00 [facility] Comment on above: Order Comment: Speci men Type: BLOOD SPECIMENOrdering Facility: [facility] Address: [address] [place] [address] Performed By: #### 5 7021-8 ####HARF[facility] LABORATORYCLIA [id number] [address] OF [facility] WBC (Bld) [#/Vol] 10.74 10*3/uL Normal 3.70-11.00 [facility] Comment on above: Order Comment: Speci men Type: BLOOD SPECIMENOrdering Facility: [facility] Address: [address] [place] [address] Performed By: #### 5 7021-8 ####HARF[facility] LABORATORYCLIA [id number] [address] OF [facility] Comprehensive metabolic 2000 panelon 03-16-2025 Albumin [Mass/Vol] 3.7 g/dL Low 3.9-4.9 [facility] Comment on above: Order Comment: Speci men Type: BLOOD SPECIMENOrdering Facility: [facility] Address: [address] [place] [address] Performed By: #### 1 9123-9, 41656-7, [id number], 22207-3 ####H[facility] LABORATORYCLIA [id number] [address] OF [facility] ALP [Catalytic activity/Vol] 57 U/L Normal 38-113 [facility] Comment on above: Order Comment: Speci men Type: BLOOD SPECIMENOrdering Facility: [facility] Address: [address] [place] [address] Performed By: #### 1 9123-9, 28756-6, TQC7984, 12751-0 ####HARF[facility] LABORATORYCLIA [id number] [address] ALT [Catalytic activity/Vol] 17 U/L Normal 10-54 [facility] Comment on above: Order Comment: Speci men Type: BLOOD SPECIMENOrdering Facility: [facility] Address: [address] [place] [address] Performed By: #### 1 9123-9, 76686-4, [id number], 92885-6 ####CARLSON LABORATORYCLIA [id number] [place] [address] [place] Anion gap [Moles/Vol] 11 mmol/L Normal 8-15 [facility] Comment on above: Order Comment: Speci men Type: BLOOD SPECIMENOrdering Facility: [facility] Address: [address] [place] [address] Performed By: #### 1 9123-9, 41434-4, [id number], 37072-3 ####CARLSON LABORATORYCLIA [id number] [place] [address] [place] AST [Catalytic activity/Vol] 20 U/L Normal 14-40 [facility] Comment on above: Order Comment: Speci men Type: BLOOD SPECIMENOrdering Facility: [facility] Address: [address] [place] [address] Performed By: #### 1 9123-9, 60318-9, BJJ0473, 84930-6 ####CARLSON LABORATORYCLIA [id number] [place] [address] [place] Bilirubin [Mass/Vol] 0.5 mg/dL Normal 0.2-1.3 [facility] Comment on above: Order Comment: Speci men Type: BLOOD SPECIMENOrdering Facility: [facility] Address: [address] [place] [address] Performed By: #### 1 9123-9, 16409-7, NAV2498, 96855-1 ####CARLSON LABORATORYCLIA [id number] [address] [place] Calcium [Mass/Vol] 9.4 mg/dL Normal 8.5-10.2 [facility] Comment on above: Order Comment: Speci men Type: BLOOD SPECIMENOrdering Facility: [facility] Address: [address] [place] [address] Performed By: #### 1 9123-9, 78834-4, CAB3074, 25107-1 ####CARLSON LABORATORYCLIA [id number] [place] [address] [place] Chloride [Moles/Vol] 95 mmol/L Low 98-107 [facility] Comment on above: Order Comment: Speci men Type: BLOOD SPECIMENOrdering Facility: [facility] Address: [address] [place] [address] Performed By: #### 1 9123-9, 53822-8, QEE6563, 62529-0 ####HARFORD LABORATORYCLIA [id number] [place] [id number] [place] CO2 [Moles/Vol] 26 mmol/L Normal 22-30 [facility] Comment on above: Order Comment: Speci men Type: BLOOD SPECIMENOrdering Facility: [facility] Address: [address] [place] [address] Performed By: #### 1 9123-9, 02994-2, AYZ8093, 09243-5 ####HARF[facility] LABORATORYCLIA [id number] [place] [address] [place] Creatinine [Mass/Vol] 0.70 mg/dL Low 0.73-1.22 [facility] Comment on above: Order Comment: Speci men Type: BLOOD SPECIMENOrdering Facility: [facility] Address: [address] [place] [address] Performed By: #### 1 9123-9, 35551-6, TFB6067, 01997-6 ####HARF[facility] LABORATORYCLIA [id number] [place] [id number] [place] Creatinine and Glomerular filtration rate.predicted panel (S/P/Bld) 102 mL/min/1.73m??? Normal >=60 [facility] Comment on above: Order Comment: Speci men Type: BLOOD SPECIMENOrdering Facility: [facility] Address: [address] [place] [address] Result Comment: Lynn mated Glomerular Filtration Rate (eGFR) is calculated using the 2020 CKD-EPI creatinine equation. This equation utilizes serum creatinine, sex, and age as parameters. The creatinine assay has traceable calibration to isotope dilution-mass spectrometry. Refer to KDIGO guidelines for clinical interpretation. In patients with unstable renal function, e.g. those with acute kidney injury, the eGFR may not accurately reflect actual GFR. Performed By: #### 1 9123-9, 07528-7, XNG1339, 60087-0 ####HARFORD LABORATORYCLIA [id number] [place] [address] [place] Glucose [Mass/Vol] 271 mg/dL High 74-99 [facility] Comment on above: Order Comment: Chelsy cohen Type: BLOOD SPECIMENOrdering Facility: [facility] Address: [address] [place], [place] [address] Result Comment: The [place] [employer] (ADA) provides guidance for cutoff values for fasting glucose and random glucose. The ADA defines fasting as no caloric intake for at least 8 hours. Fasting plasma glucose results between 100 to 125 mg/dL indicate increased risk for diabetes (prediabetes). Fasting plasma glucose results greater than or equal to 126 mg/dL meet the criteria for diagnosis of diabetes. In the absence of unequivocal hyperglycemia, results should be confirmed by repeat testing. In a patient with classic symptoms of hyperglycemia or hyperglycemic crisis, random plasma glucose results greater than or equal to 200 mg/dL meet the criteria for diagnosis of diabetes. Reference: Standards of Medical Care in Diabetes 2016, [place] [employer]. Diabetes Care. 2016.39(Suppl 1). Performed By: #### 1 9123-9, 62677-7, TMD7901, 61015-6 ####HARF[facility] LABORATORYCLIA [id number] [place] [address] [place] Potassium [Moles/Vol] 4.4 mmol/L Normal 3.7-5.1 [facility] Comment on above: Order Comment: Chelsy cohen Type: BLOOD SPECIMENOrdering Facility: [facility] Address: [address] [place] [address] Performed By: #### 1 9123-9, 63738-8, WHL3088, 35110-4 ####HARF[facility] LABORATORYCLIA [id number] [place] [address] [place] Protein [Mass/Vol] 7.2 g/dL Normal 6.3-8.0 [facility] Comment on above: Order Comment: Speci men Type: BLOOD SPECIMENOrdering Facility: [facility] Address: [address] [place] [address] Performed By: #### 1 9123-9, 78645-3, PES4984, 95133-9 ####CARLSON LABORATORYCLIA [id number] [address] [place] OF [facility] Sodium [Moles/Vol] 132 mmol/L Low 136-144 [facility] Comment on above: Order Comment: Speci men Type: BLOOD SPECIMENOrdering Facility: [facility] Address: [address] [place] [address] Performed By: #### 1 9123-9, 54674-9, DEO3029, 87629-9 ####CARLSON LABORATORYCLIA [id number] [address] Urea nitrogen [Mass/Vol] 14 mg/dL Normal 9-24 [facility] Comment on above: Order Comment: Speci men Type: BLOOD SPECIMENOrdering Facility: [facility] Address: [address] [place] [address] Performed By: #### 1 9123-9, 24378-7, DHG0715, 95934-8 ####CARLSON LABORATORYCLIA [id number] [address] Consultation Report - Physic mariajose 03-16-2025 Consultation Report - Physician GALLO ESCOBAR :1960 [facility]:[id number] Registration Date:03/16/2025 Normal [facility] D dimer FEU PPP-mCncon 03-16 Fibrin D-dimer FEU (PPP) [Mass/Vol] <190 Normal <500 [facility] Comment on above: Order Comment: Speci men Type: BLOOD SPECIMENOrdering Facility: [facility] Address: [address] [place] [address] Performed By: #### 3 4528-0, 19582-3 ####CARLSON LABORATORYCLIA [id number] [place] [address] [place] ED NOTEon 03-16-2025 ED NOTE HNO ID: [id number] Author: FERDINAND NIXON RN Service: ? Author Type: Registered Nurse Type: ED Notes Filed: 03/16/2025 19:15 Note Text: Ptt still in process. Pt in nad. Pwd. Aox4. Pt sts pain 1-2/10 still. Tightness. [facility] ED NOTE HNO ID: [id number] Author: FERDINAND NIXON RN Service: ? Author Type: Registered Nurse Type: ED Notes Filed: 03/16/2025 17:35 Note Text: Report called to abby on 302- E at [facility]. Awaiting eta. Pt was provided snacks earlier and waiting tray [facility] ED NOTE HNO ID: [id number] Author: FERDINAND NIXON RN Service: ? Author Type: Registered Nurse Type: ED Notes Filed: 03/16/2025 19:16 Note Text: Pt and spouse both provided snacks. Waiting for tray [facility] ED NOTE HNO ID: [id number] Author: FERDINAND NIXON RN Service: ? Author Type: Registered Nurse Type: ED Notes Filed: 03/16/2025 17:25 Note Text: Attempted to call report to [phone]. E- 302. [facility] ED NOTE HNO ID: [id number] Author: FERDINAND NIXON RN Service: ? Author Type: Registered Nurse Type: ED Notes Filed: 03/16/2025 13:40 Note Text: Dr. Ang to bs. Made aware pts pain feels different now. Still a 2/10 but now feels like a pressure on chest. Pt remains at bs. EKG repeated and down to md. MD updated pt and family at this time that she has been trying to get him down to [place] still and her boss is here and he has tried calling and that at this time prefers pt stay NPO until heart cath done. Pt and sts verbal understanding. [facility] ED NOTE HNO ID: [id number] Author: FERDINAND NIXON RN Service: ? 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 It was severe, 8/10. Consistent with ACS type picture. Received nitro and then had NSVT. NSTEMI. [ ] transfer ED Course as of 03/16/252225 Lindsey Sinclair's Documentation SunMar 16, 2025 0803 LUZ High Sensitivity(!): 167 1226 APTT(!): 34.5 Others' Documentation SunMar 16, [address] Schroeder aware and will call [facility] [MB] ED Course User Index [MB] Cindy Díaz I, DO Clinical Impressions as of 03/16/252225 NSTEMI (non-ST elevated myocardial infarction) (HCC) Chest pain, unspecified type Type 2 diabetes mellitus with other specified complication, without long-term current use of insulin (HCC) Hypertension, unspecified type Patient reevaluated multiple times in ED. Patient reporting very mild chest discomfort, 1/10. Patient given nitroglycerin. Did attempt to to consult cardiology at [place], Dr. Schroeder, to facilitate transfer to cardiac [facility] at [place]. Also attempted to discuss with transfer center for bed availability. No bed available at this time. Patient was signed out at 2:30 PM pending transfer to [place] for cardiology eval. Lindsey Sinclair DO [facility] ED NOTE HNO ID: [id number] Author: DIANNE GOEL RN Service: ? 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 [facility] ED NOTE HNO ID: [id number] Author: DIANNE GOEL RN Service: ? Author Type: Registered Nurse Type: ED Notes Filed: 03/16/2025 04:38 Note Text: While talking with patient after giving 2nd sl nitro he had 20 beat run of VT, notified and at bedside with patient Normal [facility] ED PROV NOTEon 03-16-2025 ED PROV NOTE HNO ID: [id number] Author: JERED TUBBS MD Service: Emergency Medicine Author Type: Physician Type: ED Provider Notes Filed: 03/16/2025 07:58 Note Text: ED Provider Note Patient Name: Gallo Escobar : 1960 SERVICE DATE: 03/16/25 History Patient presents with: Chest Pain: Chest pain for 1 hour, feels like something sitting on chest, pain radiates to left arm and jaw 64-year-old male. Coming in today for chest pain. Woke him from sleep. History of diabetes and hypertension. Reports a pressure-like chest pain over the left side of his chest which woke him from sleep this morning. Reports it is quite severe. Also reports some shortness of breath associated with the chest pain. Denies any radiation through to his back. Denies any nausea or vomiting or diaphoresis. Took 162 mg of aspirin prior to arrival. PAST MEDICAL HISTORY Diagnosis Date Diabetes (HCC) Fatty liver 04/28/2019 Gallstones 04/25/2019 Hypertension Morbid obesity (HCC) 04/25/2019 PAST SURGICAL HISTORY Procedure Laterality Date COLONOSCOPY 2008 EXTRACTION ERUPTED TOOTH/EXR 1985 LAPAROSCOPIC CHOLECYSTECTOMY 05/01/2019 FAMILY HISTORY Problem Relation Age of Onset Diabetes Mother Hypertension Father Cancer Father other (kidney cancer) Father Social History Tobacco Use Smoking status: Never Smokeless tobacco: Never Substance and Sexual Activity Alcohol use: Yes Comment: Beer a few time a year Drug use: Never Sexual activity: Not on file ALLERGIES No Known Allergies Review of Systems Constitutional: Negative for activity change, chills, diaphoresis and fever. HENT: Negative for congestion, sinus pain and sore throat. Eyes: Negative for photophobia, pain and visual disturbance. Respiratory: Positive for shortness of breath. Negative for cough and chest tightness. Cardiovascular: Positive for chest pain. Negative for palpitations and leg swelling. Gastrointestinal: Negative for abdominal pain, constipation, diarrhea, nausea and vomiting. Genitourinary: Negative for dysuria, frequency and urgency. Musculoskeletal: Negative for back pain, gait problem and neck pain. Skin: Negative for color change, rash and wound. Neurological: Negative for syncope, light-headedness and headaches. Psychiatric/Behavioral : Negative for agitation, behavioral problems and confusion. Physical Exam Vitals [03/16/25 0402] BP Pulse Temp Temp src Resp SpO2 Weight Height 188/90 (!) 97 36.4 ?C (97.5 ?F) Oral 24 100 % (!) 143.2 kg (315 lb 11.2 oz) 1.854 m (6' 1) Physical Exam Vitals and nursing note reviewed. Constitutional: General: He is not in acute distress. Appearance: He is well-developed. He is not diaphoretic. HENT: Head: Normocephalic and atraumatic. Right Ear: External ear normal. Left Ear: External ear normal. Nose: Nose normal. Eyes: General: No scleral icterus. Right eye: No discharge. Left eye: No discharge. Conjunctiva/sclera: Conjunctivae normal. Pupils: Pupils are equal, round, and reactive to light. Neck: Vascular: No JVD. Trachea: No tracheal deviation. Cardiovascular: Rate and Rhythm: Normal rate and regular rhythm. Pulses: Radial pulses are 2+ on the right side and 2+ on the left side. Heart sounds: Normal heart sounds. No murmur heard. No friction rub. No gallop. Pulmonary: Effort: Pulmonary effort is normal. No respiratory distress. Breath sounds: Normal breath sounds. No stridor. No wheezing or rales. Abdominal: General: Bowel sounds are normal. There is no distension. Palpations: Abdomen is soft. Tenderness: There is no abdominal tenderness. There is no guarding or rebound. Hernia: No hernia is present. Musculoskeletal: General: No tenderness or deformity. Normal range of motion. Cervical back: Normal range of motion and neck supple. Skin: General: Skin is dry. Capillary Refill: Capillary refill takes less than 2 seconds. Coloration: Skin is not pale. Findings: No erythema or rash. Neurological: Mental Status: He is alert and oriented to person, place, and time. Sensory: No sensory deficit. Motor: No abnormal muscle tone. Psychiatric: Behavior: Behavior normal. Thought Content: Thought content normal. Judgment: Judgment normal. Diagnostic Testing ED Labs Ordered and Reviewed - No data to display Procedures ED Course / Clinical Impression Clinical Impressions as of 03/16/25 0754 NSTEMI (non-ST elevated myocardial infarction) (HCC) Chest pain, unspecified type Type 2 diabetes mellitus with other specified complication, without long-term current use of insulin (HCC) Hypertension, unspecified type MDM / Disposition / Plan Patient presents with aforementioned. Does still a very good story for ACS. Took 162 mg of aspirin at home an additional 162 was given here. Blood work and imaging to be obtained. Patient did have a sustained run of V. tach in which she felt abnormal but it (more content not included)... [facility] EKGon 03-16-2025 Electrocardiogram Ventricular Rate : 9 2 BPM Atrial Rate : 92 BPM P-R Interval : 260 ms QRS Duration : 124 ms Q-T Interval : 376 ms QTC Calculation(Bazett) : 464 ms Calculated P [place] : 88 degrees Calculated R [place] : -1 degrees Calculated T [place] : 18 degrees SINUS RHYTHM WITH SINUS ARRHYTHMIA WITH 1ST DEGREE A-V BLOCK RIGHT BUNDLE BRANCH BLOCK ANTERIOR INFARCT , AGE UNDETERMINED ABNORMAL ECG No Stemi Confirmed by LINDSEY SINCLAIR DO ([id number]) on 03/16/2025 2:16:56 PM NAME : GALLO ESCOBAR PID : [id number] : 1960 Gender : Male Race : ORD : Procedure Date : Mar 16 2025 13:36:37 Edit Date : Mar 16 2025 14:16:59 Diagnosis: SINUS RHYTHM WITH SINUS ARRHYTHMIA WITH 1ST DEGREE A-V BLOCK RIGHT BUNDLE BRANCH BLOCK ANTERIOR INFARCT , AGE UNDETERMINED ABNORMAL ECG No Stemi Confirmed by LINDSEY SINCLAIR DO ([id number]) on 03/16/2025 2:16:56 PM Test Reason : cp pressure Location : 1 : ER 3 Overread By : LINDSEY SINCLAIR DO Edited By : LINDSEY SINCLAIR DO Referred By : , Acquired by : francisco [facility] Electrocardiogram Ventricular Rate : 9 4 BPM Atrial Rate : 94 BPM P-R Interval : 236 ms QRS Duration : 124 ms Q-T Interval : 364 ms QTC Calculation(Bazett) : 455 ms Calculated P [place] : 90 degrees Calculated R [place] : -31 degrees Calculated T [place] : 18 degrees SINUS RHYTHM WITH 1ST DEGREE A-V BLOCK Confirmed by JERED TUBBS MD ([id number]) on 03/16/2025 5:02:14 AM NAME : GALLO ESCOBAR PID : [id number] : 1960 Gender : Male Race : ORD : Procedure Date : Mar 16 2025 04:03:16 Edit Date : Mar 16 2025 05:02:21 Diagnosis: SINUS RHYTHM WITH 1ST DEGREE A-V BLOCK Confirmed by JERED TUBBS MD ([id number]) on 03/16/2025 5:02:14 AM Test Reason : Location : 1 : ER ED Overread By : JERED TUBBS MD Edited By : JERED TUBBS MD Referred By : , Acquired by : josey [facility] Fibrin D-dimer FEU (PPP) [Ma ss/Vol]on 03-16-2025 D DIMER AGE-RELATED CUTOFF 660 ng/mL FEU [facility] Comment on above: Order Comment: Chelsy cohen Type: BLOOD SPECIMENOrdering Facility: [facility] Address: [address] [place] [address] Performed By: #### 3 4528-0, 66310-2 ####[facility]LS[facility] LABORATORYCLIA [id number] [address] [place] HIGH SENSITIVITY TROPONIN To n 03-16-2025 Troponin T.cardiac High sensitivity method [Mass/Vol] 401 ng/L High <12 [facility] Comment on above: Order Comment: Chelsy vicki Type: BLOOD SPECIMENOrdering Facility: [facility] Address: [address] [place] [address] Performed By: #### H STNT ####[facility] LABORATORYCLIA [id number] [place] [address] [place] HIGH SENSITIVITY TROPONIN T (INITIAL)on 03-16-2025 Troponin T.cardiac High sensitivity method [Mass/Vol] 162 ng/L High <12 [facility] Comment on above: Order Comment: Ferni men Type: BLOOD SPECIMENOrdering Facility: [facility] Address: [address] [place] [address] Performed By: #### 1 9123-9, 76143-1, [id number], 46637-1 ####[facility] LABORATORYCLIA [id number] [address] [place]IGH SENSIT[place] TROPONIN T (SECOND)on 03-16-2025 Troponin T.cardiac High sensitivity method [Mass/Vol] 150 ng/L High <12 [facility] Comment on above: Order Comment: Speci men Type: BLOOD SPECIMENOrdering Facility: [facility] Address: [address] [place] [address] Performed By: #### L [id number] ####[facility] LABORATORYCLIA [id number] [place] [address] [place] HIGH SENSITIVITY TROPONIN T (THIRD) 3 HRS AFTER INITIALon 03-16-2025 Troponin T.cardiac High sensitivity method [Mass/Vol] 167 ng/L High <12 [facility] Comment on above: Order Comment: Speci men Type: BLOOD SPECIMENOrdering Facility: [facility] Address: [address] [place] [address] Performed By: #### L [id number] ####[facility] LABORATORYCLIA [id number] [place] [address] [place] Magnesium SerPl-mCncon 03-16 Magnesium [Mass/Vol] 1.6 mg/dL Low 1.7-2.3 [facility] Comment on above: Order Comment: Speci men Type: BLOOD SPECIMENOrdering Facility: [facility] Address: [address] [place] [address] Performed By: #### 1 9123-9, 85705-0, [id number], 38278-7 ####[facility] LABORATORYCLIA [id number] [place] [address] [place] NT-proBNP SerPl-mCncon 03-16 Natriuretic peptide.B prohormone N-Terminal [Mass/Vol] 824 pg/mL High <125 [facility] Comment on above: Order Comment: Speci men Type: BLOOD SPECIMENOrdering Facility: [facility] Address: [address] [place] [address] Performed By: #### 1 9123-9, 51592-8, [id number], 21085-3 ####[facility] LABORATORYCLIA [id number] [place] [address] [place] PT INRon 03-16-2025 INR Coag (PPP) [Relative time] 1.3 {INR} Normal [facility] Comment on above: Order Comment: Basel ine lab for Heparin Infusion, Deselect this order if completed within the past 24 hours. Result Comment: INR Reference Range: Normal reference range for INR on patients not on anticoagulant therapy: 0.9-1.1 General therapeutic range for patients on anticoagulant therapy: 2.0-3.5 Performed By: #### 9 [id number], [id number], [id number] #### [facility] [address] [place] [address] [employer] Specialist: Kamlesh Kaufman MD Protime Patient 14.6 seconds High 9.8-12.4 [facility] Comment on above: Order Comment: Basel ine lab for Heparin Infusion, Deselect this order if completed within the past 24 hours. Performed By: #### 9 [id number], [id number], 102302 #### [facility] [address] [place] [address] [employer] Specialist: Kamlesh Kaufman MD PT panel Coag (PPP)on 2024 INR Coag (PPP) [Relative time] 1.1 {INR} Normal 0.9-1.3 [facility] Comment on above: Order Comment: Speci men Type: BLOOD SPECIMENOrdering Facility: [facility] Address: [facility] [place] [address] Result Comment: Fiona min K Antagonist (VKA) Therapeutic Range: INR 2 to 3 (Target INR of 2.5) Note: For patients treated with VKA drugs, such as warfarin, the [employer] 2012 Guideline recommends a therapeutic INR range of 2 to 3 (target INR of 2.5). This recommendation includes high-risk patients with antiphospholipid syndrome with previous arterial or venous thromboembolism, current-generation mechanical or bioprosthetic aortic heart valve replacement. Note: Patients with mechanical aortic valve replacement and additional risk factors for thromboembolic events (atrial fibrillation, previous thromboembolism, LV dysfunction, hypercoagulable conditions) or an older generation mechanical AVR (i.e., ball in-Cage) or any mechanical MVR should have a INR therapeutic range of 2.5 to 3.5 (target INR of 3). Sanjeev GH, et al. Chest 2012, 141:7S-47S Danica RA, et al. JACC 2017, 70: 252-289 Performed By: #### 3 4528-0, 22904-3 ####[facility] LABORATORYCLIA [id number] [place] [id number] [place] PT Coag (PPP) [Time] 12.1 s Normal 9.7-13.0 [facility] Comment on above: Order Comment: Speci men Type: BLOOD SPECIMENOrdering Facility: [facility] Address: [address] [place] [address] Performed By: #### 3 4528-0, 23920-1 ####[facility] LABORATORYCLIA [id number] [place] [id number] [facility] PTT, ANTICOAGULANT THERAPYon 03-16-2025 aPTT Coag (PPP) [Time] 48.1 s High 23.0-32.4 [facility] Comment on above: Order Comment: Speci men Type: BLOOD SPECIMENOrdering Facility: [facility] Address: [address] [place] [address] Performed By: #### P TTAC ####[facility] LABORATORYCLIA [id number] [place] [id number] [facility] XR CHEST 1V FRONTAL PORTon 0 03-16-2025 XR CHEST 1V FRONTAL PORT * * *Final Repo rt* * * DATE OF EXAM: Mar 16 2025 4:27AM MDX [id number] - XR CHEST 1V FRONTAL PORT / PROCEDURE REASON: Chest pain * * * * Physician Interpretation * * * * EXAMINATION: CHEST RADIOGRAPH (PORTABLE SINGLE VIEW AP) CLINICAL HISTORY: Chest pain Comparison: None RESULT: Lines, tubes, and devices: None. Lungs and pleura: Lungs are clear. No pneumothorax. Cardiomediastinal silhouette: Normal cardiomediastinal silhouette. Other: No bony abnormalities. IMPRESSION: No acute abnormality Supervisor Tubing: RENÉ Transcribe Date/Time: Mar 16 2025 5:08A Dictated by : CLARA ESPARZA MD This examination was interpreted and the report reviewed and electronically signed by: CLARA ESPARZA MD on Mar 16 2025 5:09AM EST [id number] Normal [facility] aPTT PPPon 03-16-2025 aPTT Coag (PPP) [Time] 39.6 s High 23.0-32.4 [facility] Comment on above: Order Comment: Speci men Type: BLOOD SPECIMENOrdering Facility: [facility] Address: [address] [place], [place] [id number] Performed By: #### 1 4979-9 ####[facility] LABORATORYCLIA [id number] [address] aPTT Coag (PPP) [Time] 34.5 s High 23.0-32.4 [facility] Comment on above: Order Comment: Speci men Type: BLOOD SPECIMENOrdering Facility: [facility] Address: [address] [place] [address] Performed By: #### 1 4979-9 ####[facility] LABORATORYCLIA [id number] [address] [facility] L501.4021on 03-10-2025 Trop T High Sen 18 ng/L Normal <=22 [facility] Comment on above: Performed By: #### L 501.1400, L501.4021, L100.0100, L500.4050, L501.3620 #### [facility] [address] [place], [place], [id number] Absolute lymphocyte countOrd ered By: Erik Helton on 03-09-2025 Lymphocytes Auto (Unsp spec) [#/Vol] 1.69 10*3/uL 0.83-4.51 [facility] Absolute neutrophil countOrd ered By: Erik Helton on 03-09-2025 Neutrophils (Bld) [#/Vol] 7.5 10*3/uL 2.0-7.7 [facility] Anion gap in Serum or Plasma Ordered By: Erik Helton on 03-09-2025 Anion gap [Moles/Vol] 9 mmol/L 5-15 [facility] Automated lymphocyte count a s percentage of total leukocytesOrdered By: Erik Helton on 03-09-2025 Lymphocytes/100 WBC Auto (Unsp spec) 16.4 % Low 19-41 [facility] BUN/creatinine ratioOrdered By: Erik Helton on 03-09-2025 Urea nitrogen/Creatinine [Mass ratio] 20.0 mg/mg 10-20 [facility] Basophil percentageOrdered B y: Erik Helton on 03-09-2025 Basophils/100 WBC (Bld) 0.8 % 0-1 [facility] Bilirubin, totalOrdered By: Erik Grijalvason on 03-09-2025 Bilirubin [Mass/Vol] 0.46 mg/dL 0.00-1.30 [facility] CBC W/Diff, Automatedon -2024 Absolute Lymph 1.69 X10 3/uL Normal 0.83-4.51 [facility] Comment on above: Performed By: #### L 501.1400, L501.4021, L100.0100, L500.4050, L501.3620 #### [facility] [address] [place], [address] Absolute Neut 7.5 X10 3/uL Normal 2.0-7.7 [facility] Comment on above: Performed By: #### L 501.1400, L501.4021, L100.0100, L500.4050, L501.3620 #### [facility] [address] [place], [address] Basophils/100 WBC (Bld) 0.8 % Normal 0-1 [facility] Comment on above: Performed By: #### L 501.1400, L501.4021, L100.0100, L500.4050, L501.3620 #### [facility] [address] [place], [address] Eosinophils/100 WBC (Bld) 2.9 % Normal 0-5 [facility] Comment on above: Performed By: #### L 501.1400, L501.4021, L100.0100, L500.4050, L501.3620 #### [facility] [address] [place], [address] Erythrocyte distribution width (RBC) [Ratio] 12.4 % Normal 11.6-14.6 [facility] Comment on above: Performed By: #### L 501.1400, L501.4021, L100.0100, L500.4050, L501.3620 #### [facility] [address] [place], [address] Hematocrit (Bld) [Volume fraction] 43.5 % Normal 40-54 [facility] Comment on above: Performed By: #### L 501.1400, L501.4021, L100.0100, L500.4050, L501.3620 #### [facility] [address] [place], [address] Hemoglobin (Bld) [Mass/Vol] 14.3 g/dL Normal 13.0-16.5 [facility] Comment on above: Performed By: #### L 501.1400, L501.4021, L100.0100, L500.4050, L501.3620 #### [facility] [address] [place], [address] IG% 0.300 Normal 0.0-0.9 [facility] Comment on above: Result Comment: IG% - Immature Granulocytes (promyelocytes, myelocytes and metamyelocytes) > 1% indicates that a LEFT SHIFT is Present. Performed By: #### L 501.1400, L501.4021, L100.0100, L500.4050, L501.3620 #### [facility] [address] [place], [address] Lymphocytes/100 WBC (Bld) 16.4 % Low 19-41 [facility] Comment on above: Performed By: #### L 501.1400, L501.4021, L100.0100, L500.4050, L501.3620 #### [facility] [address] [place], [address] MCH (RBC) [Entitic mass] 29.4 pg Normal 27.0-32.0 [facility] Comment on above: Performed By: #### L 501.1400, L501.4021, L100.0100, L500.4050, L501.3620 #### [facility] [address] [place], [address] MCHC (RBC) [Mass/Vol] 32.9 g/dL Normal 32-36 [facility] Comment on above: Performed By: #### L 501.1400, L501.4021, L100.0100, L500.4050, L501.3620 #### [facility] [address] [place], [address] MCV (RBC) [Entitic vol] 89.5 fL Normal 80-94 [facility] Comment on above: Performed By: #### L 501.1400, L501.4021, L100.0100, L500.4050, L501.3620 #### [facility] [address] [place], [address] Monocytes/100 WBC (Bld) 7.1 % Normal 0-10 [facility] Comment on above: Performed By: #### L 501.1400, L501.4021, L100.0100, L500.4050, L501.3620 #### [facility] [address] [place], [address] Neutrophils/100 WBC (Bld) 72.5 % High 47-70 [facility] Comment on above: Performed By: #### L 501.1400, L501.4021, L100.0100, L500.4050, L501.3620 #### [facility] [address] [place], [address] Nucleated RBC (Bld) [#/Vol] 0 10*3/uL Normal 0-5 [facility] Comment on above: Performed By: #### L 501.1400, L501.4021, L100.0100, L500.4050, L501.3620 #### [facility] [address] [place], [address] Platelet mean volume (Bld) [Entitic vol] 12.3 fL High 6.2-12.0 [facility] Comment on above: Performed By: #### L 501.1400, L501.4021, L100.0100, L500.4050, L501.3620 #### [facility] [address] [place], [address] Platelets (Bld) [#/Vol] 279 10*3/uL Normal 150-450 [facility] Comment on above: Performed By: #### L 501.1400, L501.4021, L100.0100, L500.4050, L501.3620 #### [facility] [address] [place], [address] RBC (Bld) [#/Vol] 4.86 10*6/uL Normal 4.6-6.2 [facility] Comment on above: Performed By: #### L 501.1400, L501.4021, L100.0100, L500.4050, L501.3620 #### [facility] [address] [place], [address] RDW SD 41.1 fl Normal 35.1-43.9 [facility] Comment on above: Performed By: #### L 501.1400, L501.4021, L100.0100, L500.4050, L501.3620 #### [facility] [address] [place], [address] WBC (Bld) [#/Vol] 10.3 10*3/uL Normal 4.4-11.0 [facility] Comment on above: Performed By: #### L 501.1400, L501.4021, L100.0100, L500.4050, L501.3620 #### [facility] [address] [place], [address] CPK Total, Creatine Kinaseon 03-09-2025 CPK TOTAL 111 U/L Normal 24-195 [facility] Comment on above: Performed By: #### L 501.1400, L501.4021, L100.0100, L500.4050, L501.3620 #### [facility] [address] [place], [address] Carbon dioxide, total [Moles /volume] in Central venous bloodOrdered By: Erik Helton on 03-09-2025 CO2 [Moles/Vol] 27.8 mmol/L 21.0-32.0 [facility] Chloride assayOrdered By: Do ra Helton on 03-09-2025 Chloride [Moles/Vol] 97 mmol/L Low 98-108 [facility] Comprehensive Metabolic Prof ilon 03-09-2025 Albumin [Mass/Vol] 3.9 g/dL Normal 3.4-4.8 [facility] Comment on above: Performed By: #### L 501.1400, L501.4021, L100.0100, L500.4050, L501.3620 #### [facility] [address] [place], [address] Albumin/Globulin [Mass ratio] 1.4 {ratio} Normal 0.9-2.4 [facility] Comment on above: Performed By: #### L 501.1400, L501.4021, L100.0100, L500.4050, L501.3620 #### [facility] [address] [place], [address] ALK PHOS 53 U/L Normal 40-129 [facility] Comment on above: Performed By: #### L 501.1400, L501.4021, L100.0100, L500.4050, L501.3620 #### [facility] [address] [place], [address] ALT [Catalytic activity/Vol] 15 U/L Normal <=46 [facility] Comment on above: Performed By: #### L 501.1400, L501.4021, L100.0100, L500.4050, L501.3620 #### [facility] [address] [place], [address] AST [Catalytic activity/Vol] 15 U/L Normal <=37 [facility] Comment on above: Performed By: #### L 501.1400, L501.4021, L100.0100, L500.4050, L501.3620 #### [facility] [address] [place], [address] Bilirubin [Mass/Vol] 0.46 mg/dL Normal 0.00-1.30 [facility] Comment on above: Performed By: #### L 501.1400, L501.4021, L100.0100, L500.4050, L501.3620 #### [facility] [address] [place], [address] BUN/CRE 20.0 RATIO Normal 10-20 [facility] Comment on above: Performed By: #### L 501.1400, L501.4021, L100.0100, L500.4050, L501.3620 #### [facility] [address] [place], [address] Calcium [Mass/Vol] 9.5 mg/dL Normal 7.6-11.0 [facility] Comment on above: Performed By: #### L 501.1400, L501.4021, L100.0100, L500.4050, L501.3620 #### [facility] [address] [place], [address] Chloride [Moles/Vol] 97 mmol/L Low 98-108 [facility] Comment on above: Performed By: #### L 501.1400, L501.4021, L100.0100, L500.4050, L501.3620 #### [facility] [address] [place], [address] CO2 [Moles/Vol] 27.8 mmol/L Normal 21.0-32.0 [facility] Comment on above: Performed By: #### L 501.1400, L501.4021, L100.0100, L500.4050, L501.3620 #### [facility] [address] [place], [address] Creatinine [Mass/Vol] 0.71 mg/dL Normal 0.70-1.20 [facility] Comment on above: Performed By: #### L 501.1400, L501.4021, L100.0100, L500.4050, L501.3620 #### [facility] [address] [place], [address] GAP 9 Normal 5-15 [facility] Comment on above: Performed By: #### L 501.1400, L501.4021, L100.0100, L500.4050, L501.3620 #### [facility] [address] [place], [address] GFR/1.73 sq M.predicted among non-blacks MDRD (S/P/Bld) [Vol rate/Area] 101 mL/min/{1.73_m2} Normal >60 [facility] Comment on above: Result Comment: mL/m in/1.73m2 CKD-EPI Creatinine Equation (2020) Performed By: #### L 501.1400, L501.4021, L100.0100, L500.4050, L501.3620 #### [facility] [address] [place], [address] Globulin (S) [Mass/Vol] 2.9 g/dL Normal 2.2-4.2 [facility] Comment on above: Performed By: #### L 501.1400, L501.4021, L100.0100, L500.4050, L501.3620 #### [facility] [address] [place], [address] Glucose [Mass/Vol] 296 mg/dL High 70-99 [facility] Comment on above: Performed By: #### L 501.1400, L501.4021, L100.0100, L500.4050, L501.3620 #### [facility] [address] [place], [address] Potassium [Moles/Vol] 4.4 mmol/L Normal 3.3-5.1 [facility] Comment on above: Performed By: #### L 501.1400, L501.4021, L100.0100, L500.4050, L501.3620 #### [facility] [address] [place], [address] Sodium [Moles/Vol] 134 mmol/L Normal 133-145 [facility] Comment on above: Performed By: #### L 501.1400, L501.4021, L100.0100, L500.4050, L501.3620 #### [facility] [address] [place], [address] T PROT 6.8 g/dL Normal 5.9-8.4 [facility] Comment on above: Performed By: #### L 501.1400, L501.4021, L100.0100, L500.4050, L501.3620 #### [facility] [address] [place], [address] Urea nitrogen [Mass/Vol] 14 mg/dL Normal 4-19 [facility] Comment on above: Performed By: #### L 501.1400, L501.4021, L100.0100, L500.4050, L501.3620 #### [facility] [address] [place], [address] Eosinophil percentageOrdered By: Erik Helton on 03-09-2025 Eosinophils/100 WBC (Bld) 2.9 % 0-5 [facility] Erythrocyte distribution wid th ratioOrdered By: Erik Helton on 03-09-2025 Erythrocyte distribution width (RBC) [Ratio] 12.4 % 11.6-14.6 [facility] Erythrocyte distribution wid th standard deviationOrdered By: Erik Helton on 03-09-2025 Erythrocyte distribution width (RBC) [Ratio] 41.1 fl 35.1-43.9 [facility] Glomerular filtration rate ( GFR) estimation/1.73 sq m using serum, plasma, or whole bOrdered By: Erik Helton on 03-09-2025 GFR/1.73 sq M.predicted among non-blacks MDRD (S/P/Bld) [Vol rate/Area] 101 mL/min/{1.73_m2} >60 [facility] Comment on above: mL/min/1.73m2 CKD-EP I Creatinine Equation (2020) Hematocrit Auto (Bld) [Volum e fraction]Ordered By: Erik Helton on 03-09-2025 Hematocrit (Bld) [Volume fraction] 43.5 % 40-54 [facility] Hemoglobin measurementOrdere d By: Erik Helton on 03-09-2025 Hemoglobin (Bld) [Mass/Vol] 14.3 g/dL 13.0-16.5 [facility] Immature granulocytes/100 WB C Auto (Bld)Ordered By: Erik Helton on 03-09-2025 Immature granulocytes/100 WBC (Bld) 0.300 % 0.0-0.9 [facility] Comment on above: IG% - Immature Granu locytes (promyelocytes, myelocytes and metamyelocytes) > 1% indicates that a LEFT SHIFT is Present. Laboratory - Chemistry and C hemistry - challengeOrdered By: Erik Helton on 03-09-2025 AST [Catalytic activity/Vol] 15 U/L <38 [facility] Bilirubin Ql (U) Negative [facility] Glucose Ql (U) 100 g/dL [facility] Ketones Ql (U) Negative [facility] pH (U) 5.5 [pH] [facility] Specific gravity (U) [Rel density] 1.030 [facility] Urobilinogen (U) [Mass/Vol] 0.1049999 mg/dL [facility] Laboratory - Hematology and Cell countsOrdered By: Erik Helton on 03-09-2025 HbA1c (Bld) [Mass fraction] 10.7 % High 4.2-6.3 [facility] Hemoglobin Ql (U) Negative [facility] Laboratory - Specimen inform ationOrdered By: Erik Helton on 03-09-2025 Clarity (U) Clear [facility] Color (U) DARK YELLOW [facility] Laboratory - UrinalysisOrder ed By: Erik Helton on 03-09-2025 Nitrite Ql (U) Negative [facility] Protein Ql (U) Trace [facility] MCV (mean corpuscular volume ) determinationOrdered By: Erik Helton on 03-09-2025 MCV (RBC) [Entitic vol] 89.5 fL 80-94 [facility] Mean corpuscular hemoglobin (MCH) determinationOrdered By: Erik Helton on 03-09-2025 MCH (RBC) [Entitic mass] 29.4 pg 27.0-32.0 [facility] Mean corpuscular hemoglobin concentration (MCHC) determinationOrdered By: Erik Helton on 03-09-2025 MCHC (RBC) [Mass/Vol] 32.9 g/dL 32-36 [facility] Mean platelet volume determi nationOrdered By: Erik Helton on 03-09-2025 Platelet mean volume (Bld) [Entitic vol] 12.3 fL High 6.2-12.0 [facility] Monocyte percentageOrdered B y: Erik Helton on 03-09-2025 Monocytes/100 WBC (Bld) 7.1 % 0-10 [facility] Neutrophil percentageOrdered By: Erik Helton on 03-09-2025 Neutrophils/100 WBC (Bld) 72.5 % High 47-70 [facility] No Panel InformationOrdered By: Erik Helton on 03-09-2025 Urine Leukocytes Negatve [facility] Nucleated red blood cell per centageOrdered By: Erik Helton on 03-09-2025 Nucleated RBC/100 WBC (Bld) [Ratio] 0 % 0-5 [facility] Platelet countOrdered By: Do ra Helton on 03-09-2025 Platelets (Bld) [#/Vol] 279 10*3/uL 150-450 [facility] Potassium measurement (mass/ volume)Ordered By: Erik Helton on 03-09-2025 Potassium (Unsp spec) [Mass/Vol] 4.4 mmol/L 3.3-5.1 [facility] RBC Auto (Bld) [#/Vol]Ordere d By: Erik Helton on 03-09-2025 RBC (Bld) [#/Vol] 4.86 10*6/uL 4.6-6.2 [facility] Serum creatinine measurement (mass/volume)Ordered By: Erik Helton on 03-09-2025 Creatinine [Mass/Vol] 0.71 mg/dL 0.70-1.20 [facility] Serum globulin measurementOr dered By: Erik Helton on 03-09-2025 Globulin (S) [Mass/Vol] 2.9 g/dL 2.2-4.2 [facility] Serum glucose measurement (m ass/volume)Ordered By: Erik Helton on 03-09-2025 Glucose [Mass/Vol] 296 mg/dL High 70-99 [facility] Serum or plasma alanine ott otransferase (ALT) measurementOrdered By: Erik Helton on 03-09-2025 ALT [Catalytic activity/Vol] 15 U/L <47 [facility] Serum or plasma albumin garcia urement (mass/volume)Ordered By: Erik Helton on 03-09-2025 Albumin [Mass/Vol] 3.9 g/dL 3.4-4.8 [facility] Serum or plasma albumin/glob ulin mass ratioOrdered By: Erik Helton on 03-09-2025 Albumin/Globulin [Mass ratio] 1.4 {ratio} 0.9-2.4 [facility] Serum or plasma alkaline ella sphatase measurementOrdered By: Erik Helton on 03-09-2025 ALP [Catalytic activity/Vol] 53 U/L 40-129 [facility] Serum or plasma calcium garcia urement (mass/volume)Ordered By: Erik Helton on 03-09-2025 Calcium [Mass/Vol] 9.5 mg/dL 7.6-11.0 [facility] Serum or plasma creatine kin ase activityOrdered By: Erik Helton on 03-09-2025 CK [Catalytic activity/Vol] 111 U/L 24-195 [facility] Serum or plasma urea nitroge n measurement (mass/volume)Ordered By: Erik Helton on 03-09-2025 Urea nitrogen [Mass/Vol] 14 mg/dL 4-19 [facility] Serum or plasma uric acid me asurement (mass/volume)Ordered By: Erik Helton on 03-09-2025 Urate [Mass/Vol] 3.1 mg/dL Low 3.5-7.2 [facility] Comment on above: The drugs N-Acetylcy steine and Metamizole may falsely depress this assay. Sodium levelOrdered By: Erik Helton on 03-09-2025 Sodium [Moles/Vol] 134 mmol/L 133-145 [facility] Total proteinOrdered By: Miguel Helton on 03-09-2025 Protein [Mass/Vol] 6.8 g/dL 5.9-8.4 [facility] Troponin T.cardiac [Mass/vol ume] in Serum or Plasma by High sensitivity methodOrdered By: Erik Helton on 03-09-2025 Troponin T.cardiac High sensitivity method [Mass/Vol] 18 ng/L <22 [facility] Uric Acidon 03-09-2025 URIC 3.1 mg/dL Low 3.5-7.2 [facility] Comment on above: Result Comment: The drugs N-Acetylcysteine and Metamizole may falsely depress this assay. Performed By: #### L 501.1400, L501.4021, L100.0100, L500.4050, L501.0080 #### [facility] [address] [place], [address] Urine cultureOrdered By: Miguel Helton on 03-09-2025 Bacteria identified Cx Nom (U) Leuconostoc pseudomesenteroide Abnormal [facility] White blood cell (WBC) count Ordered By: Erik Helton on 03-09-2025 WBC (Bld) [#/Vol] 10.3 10*3/uL 4.4-11.0 [facility] CRP, High Sensitivity [id number] on 09-17-2024 CRP, HIGH SENS 8.36 mg/L High 0.00-3.00 [facility] Comment on above: Result Comment: Rela tive Risk for Future Cardiovascular Event Low <1.00 Average 1.00 - 3.00 High >3.00 Performed at: [address] [id number] [place] Net: Jeff Sheehan PhD, Phone: [phone] Performed By: #### L 3100.7870, L500.4050, L100.0100 #### [facility] [address] [place], [address] CBC W/Diff, Automatedon 120 Absolute Lymph 2.04 X10 3/uL Normal 0.83-4.51 [facility] Comment on above: Performed By: #### L 3100.7870, L500.4050, L100.0100 #### [facility] [address] [place], [address] Absolute Neut 7.3 X10 3/uL Normal 2.0-7.7 [facility] Comment on above: Performed By: #### L 3100.7870, L500.4050, L100.0100 #### [facility] [address] [place], [address] Basophils/100 WBC (Bld) 0.8 % Normal 0-1 [facility] Comment on above: Performed By: #### L 3100.7870, L500.4050, L100.0100 #### [facility] [address] [place], [address] Eosinophils/100 WBC (Bld) 2.6 % Normal 0-5 [facility] Comment on above: Performed By: #### L 3100.7870, L500.4050, L100.0100 #### [facility] [address] [place], [address] Erythrocyte distribution width (RBC) [Ratio] 12.3 % Normal 11.6-14.6 [facility] Comment on above: Performed By: #### L 3100.7870, L500.4050, L100.0100 #### [facility] [address] [place], [address] Hematocrit (Bld) [Volume fraction] 46.6 % Normal 40-54 [facility] Comment on above: Performed By: #### L 3100.7870, L500.4050, L100.0100 #### [facility] [address] [place], [address] Hemoglobin (Bld) [Mass/Vol] 15.3 g/dL Normal 13.0-16.5 [facility] Comment on above: Performed By: #### L 3100.7870, L500.4050, L100.0100 #### [facility] [address] [place], [address] IG% 0.200 Normal 0.0-0.9 [facility] Comment on above: Result Comment: IG% - Immature Granulocytes (promyelocytes, myelocytes and metamyelocytes) > 1% indicates that a LEFT SHIFT is Present. Performed By: #### L 3100.7870, L500.4050, L100.0100 #### [facility] [address] [place], [address] Lymphocytes/100 WBC (Bld) 19.3 % Normal 19-41 [facility] Comment on above: Performed By: #### L 3100.7870, L500.4050, L100.0100 #### [facility] [address] [place], [address] MCH (RBC) [Entitic mass] 28.8 pg Normal 27.0-32.0 [facility] Comment on above: Performed By: #### L 3100.7870, L500.4050, L100.0100 #### [facility] [address] [place], [address] MCHC (RBC) [Mass/Vol] 32.8 g/dL Normal 32-36 [facility] Comment on above: Performed By: #### L 3100.7870, L500.4050, L100.0100 #### [facility] [address] [place], [address] MCV (RBC) [Entitic vol] 87.6 fL Normal 80-94 [facility] Comment on above: Performed By: #### L 3100.7870, L500.4050, L100.0100 #### [facility] [address] [place], [address] Monocytes/100 WBC (Bld) 7.9 % Normal 0-10 [facility] Comment on above: Performed By: #### L 3100.7870, L500.4050, L100.0100 #### [facility] [address] [place], [address] Neutrophils/100 WBC (Bld) 69.2 % Normal 47-70 [facility] Comment on above: Performed By: #### L 3100.7870, L500.4050, L100.0100 #### [facility] [address] [place], [address] Nucleated RBC (Bld) [#/Vol] 0 10*3/uL Normal 0-5 [facility] Comment on above: Performed By: #### L 3100.7870, L500.4050, L100.0100 #### [facility] [address] [place], [address] Platelet mean volume (Bld) [Entitic vol] 12.3 fL High 6.2-12.0 [facility] Comment on above: Performed By: #### L 3100.7870, L500.4050, L100.0100 #### [facility] [address] [place], [address] Platelets (Bld) [#/Vol] 251 10*3/uL Normal 150-450 [facility] Comment on above: Performed By: #### L 3100.7870, L500.4050, L100.0100 #### [facility] [address] [place], [address] RBC (Bld) [#/Vol] 5.32 10*6/uL Normal 4.6-6.2 [facility] Comment on above: Performed By: #### L 3100.7870, L500.4050, L100.0100 #### [facility] [address] [place], [address] RDW SD 39.3 fl Normal 35.1-43.9 [facility] Comment on above: Performed By: #### L 3100.7870, L500.4050, L100.0100 #### [facility] [address] [place], [address] WBC (Bld) [#/Vol] 10.6 10*3/uL Normal 4.4-11.0 [facility] Comment on above: Performed By: #### L 3100.7870, L500.4050, L100.0100 #### [facility] [address] [place], [address] Comprehensive Metabolic Prof ilon 09-15-2024 Albumin [Mass/Vol] 3.6 g/dL Normal 3.2-5.0 [facility] Comment on above: Performed By: #### L 3100.7870, L500.4050, L100.0100 #### [facility] [address] [place], [address] Albumin/Globulin [Mass ratio] 0.9 {ratio} Normal 0.9-2.4 [facility] Comment on above: Performed By: #### L 3100.7870, L500.4050, L100.0100 #### [facility] [address] [place], [address] ALK P 54 U/L Normal 45-117 [facility] Comment on above: Performed By: #### L 3100.7870, L500.4050, L100.0100 #### [facility] [address] [place], [address] ALT [Catalytic activity/Vol] 30 U/L Normal 16-61 [facility] Comment on above: Performed By: #### L 3100.7870, L500.4050, L100.0100 #### [facility] [address] [place], [address] AST [Catalytic activity/Vol] 13 U/L Low 15-37 [facility] Comment on above: Performed By: #### L 3100.7870, L500.4050, L100.0100 #### [facility] [address] [place], [address] Bilirubin [Mass/Vol] 0.50 mg/dL Normal 0.20-1.00 [facility] Comment on above: Result Comment: For patients on eltrombopag therapy, use of Dimension Slemp TBIL is not recommended. Performed By: #### L 3100.7870, L500.4050, L100.0100 #### [facility] [address] [place], [address] BUN/CRE 18.6 RATIO Normal 10-20 [facility] Comment on above: Performed By: #### L 3100.7870, L500.4050, L100.0100 #### [facility] [address] [place], [address] CA,Total 9.6 mg/dL Normal 8.5-10.1 [facility] Comment on above: Performed By: #### L 3100.7870, L500.4050, L100.0100 #### [facility] [address] [place], [address] Chloride [Moles/Vol] 102 mmol/L Normal 98-107 [facility] Comment on above: Performed By: #### L 3100.7870, L500.4050, L100.0100 #### [facility] [address] [place], [address] CO2 [Moles/Vol] 28.0 mmol/L Normal 21.0-32.0 [facility] Comment on above: Performed By: #### L 3100.7870, L500.4050, L100.0100 #### [facility] [address] [place], [address] Creatinine [Mass/Vol] 0.81 mg/dL Normal 0.70-1.30 [facility] Comment on above: Result Comment: The validity of the calculated GFR GFRAA in patients over 70 years has not been determined. Clinical correlation is essential. Performed By: #### L 3100.7870, L500.4050, L100.0100 #### [facility] [address] [place], [address] EST GFR - AA 123 mL/min Normal >60 [facility] Comment on above: Result Comment: Afri can [place] GFR Calc Performed By: #### L 3100.7870, L500.4050, L100.0100 #### [facility] [address] [place], [address] GAP 5 Normal 5-15 [facility] Comment on above: Performed By: #### L 3100.7870, L500.4050, L100.0100 #### [facility] [address] [place], [address] GFR/1.73 sq M.predicted among non-blacks MDRD (S/P/Bld) [Vol rate/Area] 102 mL/min/{1.73_m2} Normal >60 [facility] Comment on above: Result Comment: Non- GFR Calc Performed By: #### L 3100.7870, L500.4050, L100.0100 #### [facility] [address] [place], [address] Globulin (S) [Mass/Vol] 3.8 g/dL Normal 2.2-4.2 [facility] Comment on above: Performed By: #### L 3100.7870, L500.4050, L100.0100 #### [facility] [address] [place], [address] Glucose [Mass/Vol] 325 mg/dL High 74-106 [facility] Comment on above: Result Comment: Gluc ose result greater than or equal to 200 mg/dL suggests DIABETES MELLITUS per A.D.A. criteria. Performed By: #### L 3100.7870, L500.4050, L100.0100 #### [facility] [address] [place], [address] Potassium [Moles/Vol] 4.2 mmol/L Normal 3.5-5.1 [facility] Comment on above: Performed By: #### L 3100.7870, L500.4050, L100.0100 #### [facility] [address] [place], [address] Sodium [Moles/Vol] 135 mmol/L Low 136-145 [facility] Comment on above: Performed By: #### L 3100.7870, L500.4050, L100.0100 #### [facility] [address] [place], [address] T PROT 7.4 g/dL Normal 6.4-8.2 [facility] Comment on above: Performed By: #### L 3100.7870, L500.4050, L100.0100 #### [facility] [address] [place], [address] Urea nitrogen [Mass/Vol] 15 mg/dL Normal 7-18 [facility] Comment on above: Performed By: #### L 3100.7870, L500.4050, L100.0100 #### [facility] [address] [place], [address] Absolute lymphocyte countOrd ered By: Erik Helton on 01-15-2023 Lymphocytes Auto (Unsp spec) [#/Vol] 1.58 10*3/uL 0.83-4.51 [facility] Basophil percentageOrdered B y: Erik Helton on 01-15-2023 Basophils/100 WBC (Bld) 0.8 % 0-1 [facility] Bilirubin [Mass/Vol] 0.20 mg/dL 0.20-1.00 [facility] Comment on above: For patients on eltr ombopag therapy, use of Dimension Slemp TBIL is not recommended. Chloride [Moles/Vol] 104 mmol/L 98-107 [facility] Cholesterol [Mass/Vol] 155 mg/dL <200 [facility] Comment on above: <200 mg/dL Desirable 200-240 mg/dL Borderline >240 mg/dL High Risk Eosinophils/100 WBC (Bld) 4.7 % 0-5 [facility] Glucose [Mass/Vol] 271 mg/dL 74-106 [facility] Comment on above: Glucose result great er than or equal to 200 mg/dLsuggests DIABETES MELLITUS per A.D.A. criteria. Neutrophils (Bld) [#/Vol] 6.0 10*3/uL 2.0-7.7 [facility] Neutrophils/100 WBC (Bld) 68.3 % 47-70 [facility] Potassium [Moles/Vol] 4.2 mmol/L 3.5-5.1 [facility] Protein [Mass/Vol] 6.9 g/dL 6.4-8.2 [facility] Sodium [Moles/Vol] 136 mmol/L 136-145 [facility] Triglyceride [Mass/Vol] 148 mg/dL <199 [facility] Comment on above: The drugs N-Acetylcy steine and Metamizole may falsely depress this assay.Serum Triglycerides Reference Interval Normal <150 mg/dL Borderline high 150 - 199 mg/dL High 200 - 499 mg/dL Very High > or = 500 mg/dL WBC (Bld) [#/Vol] 8.8 10*3/uL 4.4-11.0 [facility] Blood erythrocytes count (nu mber/volume)Ordered By: Erik Helton on 01-15-2023 RBC (Bld) [#/Vol] 4.85 10*6/uL 4.6-6.2 [facility] Blood hemoglobin measurement (mass/volume)Ordered By: Erik Helton on 01-15-2023 Hemoglobin (Bld) [Mass/Vol] 14.5 g/dL 13.0-16.5 [facility] Blood lymphocytes/100 leukoc ytesOrdered By: Erik Helton on 01-15-2023 Lymphocytes/100 WBC (Bld) 18.0 % 19-41 [facility] Blood monocytes/100 leukocyt esOrdered By: Erik Helton on 01-15-2023 Monocytes/100 WBC (Bld) 7.9 % 0-10 [facility] Blood platelet mean volumeOr dered By: Erik Helton on 01-15-2023 Platelet mean volume (Bld) [Entitic vol] 12.1 fL 6.2-12.0 [facility] Determination of erythrocyte mean corpuscular volume (MCV)Ordered By: Erik Helton on 01-15-2023 MCV (RBC) [Entitic vol] 91.5 fL 80-94 [facility] Hematocrit Auto (Bld) [Volum e fraction]Ordered By: Erik Helton on 01-15-2023 Hematocrit (Bld) [Volume fraction] 44.4 % 40-54 [facility] - Chemistry and C hemistry - challengeOrdered By: Erik Helton on 01-15-2023 ALP [Catalytic activity/Vol] 62 U/L 45-117 [facility] ALT [Catalytic activity/Vol] 34 U/L 16-61 [facility] CO2 [Moles/Vol] 33.0 mmol/L 21.0-32.0 [facility] Globulin (S) [Mass/Vol] 3.6 g/dL 2.2-4.2 [facility] Urea nitrogen/Creatinine [Mass ratio] 18.5 mg/mg 10-20 [facility] - Hematology and Cell countson 01-15-2023 HbA1c (Bld) [Mass fraction] 7.3 % 4.2-6.3 [facility] - Hematology and Cell countsOrdered By: Erik Helton on 01-15-2023 Erythrocyte distribution width (RBC) [Entitic vol] 43.4 fL 35.1-43.9 [facility] Erythrocyte distribution width (RBC) [Ratio] 12.9 % 11.6-14.6 [facility] Immature granulocytes/100 WBC (Bld) 0.300 % 0.0-0.9 [facility] Comment on above: IG% - Immature Granu locytes (promyelocytes, myelocytes and metamyelocytes) > 1% indicates that a LEFT SHIFT is Present. MCH (RBC) [Entitic mass] 29.9 pg 27.0-32.0 [facility] Nucleated RBC/100 WBC (Bld) [Ratio] 0 % 0-5 [facility] MCHC Auto (RBC) [Mass/Vol]Or dered By: Erik Helton on 01-15-2023 MCHC (RBC) [Mass/Vol] 32.7 g/dL 32-36 [facility] No Panel InformationOrdered By: Erik Helton on 01-15-2023 Estimated GFR (MDRD) Amer 115 mL/min >60 [facility] Comment on above: GFR Calc Estimated GFR (MDRD) Non-Af Amer 95 mL/min >60 [facility] Comment on above: Non- GFR Calc Miscellaneous Test See comment [facility] Comment on above: TEST RESULT LIMITSPr ostate Specific Ag 0.3 ng/mL 0.0-4.0Roche ECLIA methodology.According to the [place] [employer], Serum PSA should decrease and remain at undetectable levels after radicalprostatectomy. The AUA defines biochemical recurrence as an initial PSA value 0.2 ng/mL or greater followed by a subsequent confirmatory PSA value 0.2 ng/mL or greater.Values obtained with different assay methods or kits cannot be used interchangeably. Results cannot be interpreted as absolute evidence of the presence or absence of malignant disease. ____ TESTING PERFORMED AT [facility]. ORIGINAL REPORT ON FILE IN LAB CONTAINS ADDITIONAL TEST SITE INFORMATION. Platelets bldOrdered By: Miguel Helton on 01-15-2023 Platelets (Bld) [#/Vol] 268 10*3/uL 150-450 [facility] Serum or plasma albumin garcia urement (mass/volume)Ordered By: Erik Helton on 01-15-2023 Albumin [Mass/Vol] 3.3 g/dL 3.2-5.0 [facility] Serum or plasma albumin/glob ulin mass ratioOrdered By: Erik Helton on 01-15-2023 Albumin/Globulin [Mass ratio] 0.9 {ratio} 0.9-2.4 [facility] Serum or plasma calcium garcia urement (mass/volume)Ordered By: Erik Helton on 01-15-2023 Calcium [Mass/Vol] 8.5 mg/dL 8.5-10.1 [facility] Serum or plasma cholesterol in HDL measurement (mass/volume)Ordered By: Erik Helton on 01-15-2023 Cholesterol in HDL [Mass/Vol] 56 mg/dL >40 [facility] Comment on above: The drugs N-Acetylcy steine and Metamizole may falsely depress this assay. Reference Range HDL <40 mg/dL Low HDL Cholesterol HDL >or= 60 mg/dL High HDL Cholesterol Serum or plasma cholesterol in VLDL measurement (mass/volume)Ordered By: Erik Helton on 01-15-2023 Cholesterol in VLDL [Mass/Vol] 30 mg/dL 5-40 [facility] Serum or plasma creatinine m easurement (mass/volume)Ordered By: Erik Helton on 01-15-2023 Creatinine [Mass/Vol] 0.86 mg/dL 0.70-1.30 [facility] Comment on above: The validity of the calculated GFR & GFRAA in patients over 70 years has not been determined. Clinical correlation is essential. Serum or plasma low density lipoprotein (LDL) cholesterol measurement (mass/volume)Ordered By: Erik Helton on 01-15-2023 Cholesterol in LDL [Mass/Vol] 69 mg/dL 0-130 [facility] Serum or plasma urea nitroge n measurement (mass/volume)Ordered By: Erik Helton on 01-15-2023 Urea nitrogen [Mass/Vol] 16 mg/dL 7-18 [facility] Thin prep Papanicolaou smear with manual screeningOrdered By: Erik Helton on 01-15-2023 Thin prep Papanicolaou smear with manual screening 18 U/L 15-37 [facility] Thin prep Papanicolaou smear with manual screening -1 5-15 [facility] PROGRESSon 05-16-2019 PROGRESS HNO ID: [id number] Author: Luz Young Service: ? Author Type: Nurse Practitioner Type: Progress Notes Filed: 05/16/2019 5:21 PM Note Text: ESTABLISHED PATIENT Gallo Escobar is a 58 year old male presenting for Post Op lap Stefanie. HISTORY OF PRESENT ILLNESS Ed continues to have RUQ pain and a poor appetite. He has lost 20 pounds in 2 months however he has switched to a plant based diet. 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 Otherwise his energy level is good, his abdomen is soft and nontender with + bowel sounds. Incisions are healing well.He will continue to honor the lifting restrictions and follow up as needed. HISTORIES FAMILY HISTORY Problem Relation Age of Onset - Diabetes Mother - Hypertension Father - Cancer Father - other (kidney cancer) Father PAST MEDICAL HISTORY Diagnosis Date - Diabetes (HCC) - Fatty liver 04/28/2019 - Gallstones 04/25/2019 - Hypertension - Morbid obesity (HCC) 04/25/2019 PAST SURGICAL HISTORY Procedure Laterality Date - COLONOSCOPY 2008 - EXTRACTION ERUPTED TOOTH/EXR 1984 - LAPAROSCOPIC CHOLECYSTECTOMY 05/01/2019 Social History Socioeconomic History Marital status: Unknown Spouse name: Not on file Number of children: Not on file Years of education: Not on file Highest education level: Not on file Occupational History Not on file Social Needs Financial resource strain: Not on file Food insecurity: Worry: Not on file Inability: Not on file Transportation needs: Medical: Not on file Non-medical: Not on file Tobacco Use Smoking status: Never Smoker Smokeless tobacco: Never Used Substance and Sexual Activity Alcohol use: Yes Comment: Beer a few time a year Drug use: Never Sexual activity: Not on file Lifestyle Physical activity: Days per week: Not on file Minutes per session: Not on file Stress: Not on file Relationships Social connections: Talks on phone: Not on file Gets together: Not on file Attends methodist service: Not on file Active member of club or organization: Not on file Attends meetings of clubs or organizations: Not on file Relationship status: Not on file Intimate partner violence: Fear of current or ex partner: Not on file Emotionally abused: Not on file Physically abused: Not on file Forced sexual activity: Not on file Other Topics Concerns: Not on file Social History Narrative Not on file Allergies: ALLERGIES No Known Allergies Medications: LISINOPRIL ORAL Take by mouth. semaglutide (OZEMPIC) 0.25 mg or 0.5 mg(2 mg/1.5 mL) pnij Inject 0.25 mg subcutaneously once each week. XIGDUO XR 10-500 mg XR tab metoprolol succinate ER (TOPROL XL) 25 mg 24 hr tablet Take 25 mg by mouth once daily. REVIEW OF SYSTEMS PAIN ASSESSMENT: Negative for pain, history of chronic pain, or current treatment for a chronic pain condition. GENERAL: Weight loss RESPIRATORY: Negative for cough, hemoptysis, wheezing, COPD, dyspnea or shortness of breath CARDIOVASCULAR: Negative for chest pain, leg swelling, hypertension, CHF or palpitations GI: See HPI : No history of dysuria, frequency or incontinence PHYSICAL EXAM BP 174/99 Pulse 91 Temp 37 ?C (98.6 ?F) General Appearance: Well appearing, alert, in no acute distress, well-hydrated, well nourished. and Morbidly obese. Skin: Skin color, texture, turgor normal, no suspicious rashes or lesions, Incisions well healed. Lungs: lungs clear to auscultation. No wheezing, rhonchi, rales. Heart: RRR without murmur, gallop, or rubs. No ectopy. Abdomen: Normal abdominal exam, Abdomen soft, non-tender. Bowel sounds normal. No masses, organomegaly. Assessment IMPRESSION/PLAN Ed continues to have RUQ pain and a poor appetite. He has lost 20 pounds in 2 months however he has switched to a plant based diet. 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 Otherwise his energy level is good, his abdomen is soft and nontender with + bowel sounds. Incisions are healing well.He will continue to honor the lifting restrictions and follow up as needed. Normal [facility] CNOVon 05-15-2019 CNOV Office Visit (SLIM ) GALLO ESCOBAR ([id number]) 1960 [facility] Date Time Provider Department 05/15/19 11:20 AM LUZ YOUNG (SIMULATION TECHNICIAN) SLIM During your visit today, we recorded the following information about you: Temperature Pulse Blood pressure 98.6 degrees 91/minute 174/99 Luz Young APRN.CNP 05/16/2019 5:21 PM Signed ESTABLISHED PATIENT Gallo Escobar is a 58 year old male presenting for Post Op lap Stefanie. HISTORY OF PRESENT ILLNESS Ed continues to have RUQ pain and a poor appetite. He has lost 20 pounds in 2 months however he has switched to a plant based diet. 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 Otherwise his energy level is good, his abdomen is soft and nontender with + bowel sounds. Incisions are healing well.He will continue to honor the lifting restrictions and follow up as needed. HISTORIES FAMILY HISTORY Problem Relation Age of Onset - Diabetes Mother - Hypertension Father - Cancer Father - other (kidney cancer) Father PAST MEDICAL HISTORY Diagnosis Date - Diabetes (HCC) - Fatty liver 04/28/2019 - Gallstones 04/25/2019 - Hypertension - Morbid obesity (HCC) 04/25/2019 PAST SURGICAL HISTORY Procedure Laterality Date - COLONOSCOPY 2008 - EXTRACTION ERUPTED TOOTH/EXR 1984 - LAPAROSCOPIC CHOLECYSTECTOMY 05/01/2019 Social History Socioeconomic History Marital status: Unknown Spouse name: Not on file Number of children: Not on file Years of education: Not on file Highest education level: Not on file Occupational History Not on file Social Needs Financial resource strain: Not on file Food insecurity: Worry: Not on file Inability: Not on file Transportation needs: Medical: Not on file Non-medical: Not on file Tobacco Use Smoking status: Never Smoker Smokeless tobacco: Never Used Substance and Sexual Activity Alcohol use: Yes Comment: Beer a few time a year Drug use: Never Sexual activity: Not on file Lifestyle Physical activity: Days per week: Not on file Minutes per session: Not on file Stress: Not on file Relationships Social connections: Talks on phone: Not on file Gets together: Not on file Attends methodist service: Not on file Active member of club or organization: Not on file Attends meetings of clubs or organizations: Not on file Relationship status: Not on file Intimate partner violence: Fear of current or ex partner: Not on file Emotionally abused: Not on file Physically abused: Not on file Forced sexual activity: Not on file Other Topics Concerns: Not on file Social History Narrative Not on file Allergies: ALLERGIES No Known Allergies Medications: LISINOPRIL ORAL Take by mouth. semaglutide (OZEMPIC) 0.25 mg or 0.5 mg(2 mg/1.5 mL) pnij Inject 0.25 mg subcutaneously once each week. XIGDUO XR 10-500 mg XR tab metoprolol succinate ER (TOPROL XL) 25 mg 24 hr tablet Take 25 mg by mouth once daily. REVIEW OF SYSTEMS PAIN ASSESSMENT: Negative for pain, history of chronic pain, or current treatment for a chronic pain condition. GENERAL: Weight loss RESPIRATORY: Negative for cough, hemoptysis, wheezing, COPD, dyspnea or shortness of breath CARDIOVASCULAR: Negative for chest pain, leg swelling, hypertension, CHF or palpitations GI: See HPI : No history of dysuria, frequency or incontinence PHYSICAL EXAM BP 174/99 Pulse 91 Temp 37 ?C (98.6 ?F) General Appearance: Well appearing, alert, in no acute distress, well-hydrated, well nourished. and Morbidly obese. Skin: Skin color, texture, turgor normal, no suspicious rashes or lesions, Incisions well healed. Lungs: lungs clear to auscultation. No wheezing, rhonchi, rales. Heart: RRR without murmur, gallop, or rubs. No ectopy. Abdomen: Normal abdominal exam, Abdomen soft, non-tender. Bowel sounds normal. No masses, organomegaly. Assessment IMPRESSION/PLAN Ed continues to have RUQ pain and a poor appetite. He has lost 20 pounds in 2 months however he has switched to a plant based diet. 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 Otherwise his energy level is good, his abdomen is soft and nontender with + bowel sounds. Incisions are healing well.He will continue to honor the lifting restrictions and follow up as needed. Referring Provider: ERIK HELTON [[id number]] Allergies As of Date: 05/15/2019 (No Known Allergies) Date Reviewed: 05/15/2019 Reviewed by: Karen Archuleta RN - Fully Assessed Reason for Visit: Post Op lap Stefanie [Other] Primary Visit Diagnosis:Symptomatic cholelithiasis [K80.20] Prescriptions as of 05/15/2019 Sig: LISINOPRIL ORAL Take by mouth. SEMAGLUTIDE 0.25 MG OR 0.5 MG* Inject 0.25 mg subcutaneously* XIGDUO XR 10 MG-500 MG TABLET* METOPROLOL SUCCINATE ER 25 MG* Take 25 mg by mouth once manav* Problem List As Of Date 05/15/2019 Noted Resolved Hypertension [I10] INVALID FOR* More... Morbid obesity (HCC) [E66.01] INVALID FOR* More... Diabetes (HCC) [E11.9] INVALID FOR* More... Gallstones [K80.20] INVALID FOR* Fatty liver [K76.0] INVALID FOR* More... Encounter Status:Closed by LUZ YOUNG on 05/16/19 [facility] PROGRESSon 05-07-2019 PROGRESS HNO ID: [id number] Author: Jairon Beach Service: ? Author Type: Physician Type: Progress Notes Filed: 05/07/2019 8:58 AM Note Text: Controlled type 2 diabetes mellitus without complication, without long-term current use of insulin (hcc) (primary encounter diagnosis) No signs of diabetic retinopathy in either eye. Jairon Beach MD [facility] CNOVon 04-09-2019 CNOV Office Visit (GENSME ) GALLO ESCOBAR ([id number]) 1960 [facility] Date Time Provider Department 04/09/19 8:45 AM LINNEA MOSS During your visit today, we recorded the following information about you: Pulse Blood pressure Weight Height 72/minute 148/79 142 kg 1.829 m Linnea Moss MD 04/09/2019 9:37 AM Signed PROGRESS NOTES PATIENT NAME: Gallo Escobar Assessment ASSESSMENT AND PLAN The patient is a 58-year-old male with gallstones and right upper quadrant pain. I do believe that his symptoms are gallbladder related. I recommended a laparoscopic cholecystectomy as treatment. We discussed the details of the planned procedure including risks benefits and alternatives. He wishes to proceed. This will be scheduled in a timely manner. SUBJECTIVE CHIEF COMPLAINT: Patient presents with: Abdominal Pain: Had u/s done in [place]. Pain below ribcage, tightness and pressure for 1-2 months. INTERVAL HISTORY OF PRESENT ILLNESS: The patient is a 58-year-old male who is being seen today for gallstones and right upper quadrant pain. He states that he has been having these attacks of pain off and on for the past couple of months. He describes pain in the epigastric and right upper quadrant pain. He states that this usually occurs after eating food particularly pasta sauces or fatty foods. He also associates nausea and vomiting with this pain. He states that these attacks come on about half an hour after eating and usually can last 1-2 hours. He denies any fevers or chills. He recently underwent an ultrasound of the right upper quadrant which showed gallstones and no gallbladder wall thickening. He presents today for evaluation. GENERAL:No malaise, No fevers, Recent weight change HEENT:Negative for frequent or significant headaches, Wear glasses or contacts, No changes in hearing or vision, no nose bleeds or other nasal problems CARDIOVASCULAR: Negative for chest pain, Negative for leg swelling, Negative for palpitaions SKIN:Negative for lesions, rash, and itching. RESPIRATORY: Negative for cough, wheezing or shortness of breath. GASTROINTESTINAL: Negative for black stools, Change in bowel movements and Nausea or vomiting GENITOURINARY: No history of dysuria, frequency or incontinence. ENDOCRINE: None MUSCULOSKELETAL: Negative for joint pain or swelling, back pain or muscle pain. NEUROLOGIC:Negative for focal numbness or weakness, headaches and dizziness or syncope. HEMATOLOGIC/LYMPHATIC/ IMMUNOLOGIC:Negative for prolonged bleeding, bruising easily or swollen nodes. I have reviewed and agree with the Review of Systems. Linnea Moss MD HISTORIES: PAST MEDICAL HISTORY Diagnosis Date - Diabetes (HCC) - Hypertension PAST SURGICAL HISTORY Procedure Laterality Date - NONE ALLERGIES: Patient has no known allergies. MEDICATIONS: Current Outpatient Medications: XIGDUO XR 10-500 mg XR tab metoprolol succinate ER (TOPROL XL) 25 mg 24 hr tablet Take 25 mg by mouth once daily. metFORMIN (GLUCOPHAGE) 500 mg tablet Take 500 mg by mouth twice daily with meals. No current facility-administered medications for this visit. No family history on file. Social History Socioeconomic History Marital status: Unknown Spouse name: Not on file Number of children: Not on file Years of education: Not on file Highest education level: Not on file Social Needs Financial resource strain: Not on file Food insecurity - worry: Not on file Food insecurity - inability: Not on file Transportation needs - medical: Not on file Transportation needs - non-medical: Not on file Occupational History Not on file Tobacco Use Smoking status: Never Smoker Smokeless tobacco: Never Used Substance and Sexual Activity Alcohol use: Yes Comment: occ Drug use: Never Sexual activity: Not on file Other Topics Concerns: Not on file Social History Narrative Not on file OBJECTIVE PHYSICAL EXAM: BP 148/79[second reading[ Pulse 72 Ht 6' 0 (1.83m) Wt 313 lb 1.6 oz (142.0kg) SpO2 95% BMI 42.45 kg/(m2). GENERAL: Alert, no distress, cooperative, Obese LUNGS: Lungs clear to auscultation, Good diaphragmatic excursion CARDIAC: Normal S1 and S2; no rubs, murmurs, or gallops ABDOMEN: Abdomen soft, non-tender, BS normal, No masses or organomegaly DATA: Diagnostic tests reviewed for today's visit: Most recent labs and imaging results. Linnea Moss MD Referring Provider: SELF [[id number]] Allergies As of Date: 04/09/2019 (No Known Allergies) Date Reviewed: 04/09/2019 Reviewed by: Linnea Moss - Fully Assessed Reason for Visit: Abdominal Pain [1] Cmt: Had u/s done in [place]. Pain below ribcage, tightness and pressure for 1-2 months. Primary Visit Diagnosis:Symptomatic cholelithiasis [K80.20] Prescriptions as of 04/09/2019 Sig: XIGDUO XR 10 MG-500 MG TABLET* METOPROLOL SUCCINATE ER 25 MG* Take 25 mg by mouth once manav* METFORMIN 500 MG TABLET Take 500 mg by mouth twice da* Medication notes this encounter METFORMIN 500 MG TABLET >> Jonelle Diaz Ma 04/09/2019 9:06 AM >> JONELLE DIAZ MA Apr 09, 2019 9:06 AM Not taking Problem List As Of Date: 04/09/2019 (None) Disposition: Return in about 2 weeks (around 04/23/2019). Follow-up and Disposition History Recorded Encounter Status:Closed by LINNEA MOSS MD on 04/09/19 Normal [facility] PROGRESSon 04-09-2019 PROGRESS HNO ID: [id number] Author: Linnea Moss Service: ? Author Type: Physician Type: Progress Notes Filed: 04/09/2019 9:37 AM Note Text: PROGRESS NOTES PATIENT NAME: Gallo Escobar Assessment ASSESSMENT AND PLAN The patient is a 58-year-old male with gallstones and right upper quadrant pain. I do believe that his symptoms are gallbladder related. I recommended a laparoscopic cholecystectomy as treatment. We discussed the details of the planned procedure including risks benefits and alternatives. He wishes to proceed. This will be scheduled in a timely manner. SUBJECTIVE CHIEF COMPLAINT: Patient presents with: Abdominal Pain: Had u/s done in [place]. Pain below ribcage, tightness and pressure for 1-2 months. INTERVAL HISTORY OF PRESENT ILLNESS: The patient is a 58-year-old male who is being seen today for gallstones and right upper quadrant pain. He states that he has been having these attacks of pain off and on for the past couple of months. He describes pain in the epigastric and right upper quadrant pain. He states that this usually occurs after eating food particularly pasta sauces or fatty foods. He also associates nausea and vomiting with this pain. He states that these attacks come on about half an hour after eating and usually can last 1-2 hours. He denies any fevers or chills. He recently underwent an ultrasound of the right upper quadrant which showed gallstones and no gallbladder wall thickening. He presents today for evaluation. GENERAL:No malaise, No fevers, Recent weight change HEENT:Negative for frequent or significant headaches, Wear glasses or contacts, No changes in hearing or vision, no nose bleeds or other nasal problems CARDIOVASCULAR: Negative for chest pain, Negative for leg swelling, Negative for palpitaions SKIN:Negative for lesions, rash, and itching. RESPIRATORY: Negative for cough, wheezing or shortness of breath. GASTROINTESTINAL: Negative for black stools, Change in bowel movements and Nausea or vomiting GENITOURINARY: No history of dysuria, frequency or incontinence. ENDOCRINE: None MUSCULOSKELETAL: Negative for joint pain or swelling, back pain or muscle pain. NEUROLOGIC:Negative for focal numbness or weakness, headaches and dizziness or syncope. HEMATOLOGIC/LYMPHATIC/ IMMUNOLOGIC:Negative for prolonged bleeding, bruising easily or swollen nodes. I have reviewed and agree with the Review of Systems. Linnea Moss MD HISTORIES: PAST MEDICAL HISTORY Diagnosis Date - Diabetes (HCC) - Hypertension PAST SURGICAL HISTORY Procedure Laterality Date - NONE ALLERGIES: Patient has no known allergies. MEDICATIONS: Current Outpatient Medications: XIGDUO XR 10-500 mg XR tab metoprolol succinate ER (TOPROL XL) 25 mg 24 hr tablet Take 25 mg by mouth once daily. metFORMIN (GLUCOPHAGE) 500 mg tablet Take 500 mg by mouth twice daily with meals. No current facility-administered medications for this visit. No family history on file. Social History Socioeconomic History Marital status: Unknown Spouse name: Not on file Number of children: Not on file Years of education: Not on file Highest education level: Not on file Social Needs Financial resource strain: Not on file Food insecurity - worry: Not on file Food insecurity - inability: Not on file Transportation needs - medical: Not on file Transportation needs - non-medical: Not on file Occupational History Not on file Tobacco Use Smoking status: Never Smoker Smokeless tobacco: Never Used Substance and Sexual Activity Alcohol use: Yes Comment: occ Drug use: Never Sexual activity: Not on file Other Topics Concerns: Not on file Social History Narrative Not on file OBJECTIVE PHYSICAL EXAM: BP 148/79[second reading[ Pulse 72 Ht 6' 0 (1.83m) Wt 313 lb 1.6 oz (142.0kg) SpO2 95% BMI 42.45 kg/(m2). GENERAL: Alert, no distress, cooperative, Obese LUNGS: Lungs clear to auscultation, Good diaphragmatic excursion CARDIAC: Normal S1 and S2; no rubs, murmurs, or gallops ABDOMEN: Abdomen soft, non-tender, BS normal, No masses or organomegaly DATA: Diagnostic tests reviewed for today's visit: Most recent labs and imaging results. Linnea Moss MD Normal [facility] PROGRESSon 03-19-2019 PROGRESS HNO ID: [id number] Author: Wanda Singleton, LEXI Service: ? Author Type: Clinical Director Of Counterintelligence Type: Progress Notes Filed: 03/19/2019 9:36 AM Note Text: Radiology Service Progress Note PATIENT NAME: Gallo Escobar DATE OF SERVICE: March 19, 2019 TIME: 8:45 AM PATIENT IDENTITY VERIFICATION COMPLETED USING TWO (2) METHODS: Patient confirmed name verbally and Date of . PATIENT GENDER DATA: Male PATIENT RELEVANT IMPLANT DATA REVIEWED: Not Applicable RADIOLOGY DEPARTMENT: Ultrasound, abd complete PERIPHERAL IV DATA: Not applicable SIGNED BY: WANDA SINGLETON March 19, 2019 8:45 AM Normal [facility] US ABDOMEN COMPLETEon 2018 US ABDOMEN COMPLETE * * *Final Report* * * DATE OF EXAM: Mar 19 2019 9:30AM BRU 1040 - US ABDOMEN COMPLETE / PROCEDURE REASON: R10.13 * * * * Physician Interpretation * * * * EXAMINATION: COMPLETE ABDOMINAL ULTRASOUND CLINICAL HISTORY: Abdominal pain TECHNIQUE: Sonography of the abdomen was performed. Images were obtained and stored in a permanent archive. MQ: UAbC_1 COMPARISON: None RESULT: Evaluation limited by patient body habitus. Pancreas: Not optimally evaluated Liver: Echotexture: Coarse Echogenicity: Increased Surface contour: Smooth Lesions: None. Biliary: No intrahepatic biliary duct dilation. CBD: 0.5 cm at the hilum. Gallbladder: Normal caliber -Contents: Cholelithiasis -Wall: Normal -Other: No pericholecystic fluid. Spleen: Craniocaudal length: 11.4 cm Lesions: None Right Kidney: -Renal length: 13.0 cm -Parenchyma: Normal parenchymal echogenicity. Normal parenchymal thickness. -Collecting system: No hydronephrosis. -Calculus: 8 mm calculus. -Lesion: None. Left Kidney: -Renal length: 13.1 cm -Parenchyma: Normal parenchymal echogenicity. Normal parenchymal thickness. -Collecting system: Questionable mildly prominent collecting system/prominent renal pelvis. -Calculus: No echogenic, shadowing calculus. -Lesion: None. Bladder: Normal. IVC: Imaged segment is patent. Abdominal Aorta: Imaged segment is patent. Ascites: None. IMPRESSION: Fatty infiltration of the liver. Suboptimal pancreatic visualization. Cholelithiasis. Nonobstructing right renal calculus. Question mild prominence left renal collecting system/mild prominent renal pelvis. Supervisor Tubing: [facility] Transcribe Date/Time: Mar 19 2019 10:34A Dictated by : OVIDIO PRINCE MD This examination was interpreted and the report reviewed and electronically signed by: OVIDIO PRINCE MD on Mar 19 2019 10:39AM EST [id number] Normal [facility] CR Knee 3 Views Lefton 04-07 CR Knee 3 Views Left Patient Name: GALLO AUGUSTIN Diagnostic Radiology Exam Date/Time 04/07/2018 12:33:24 EDT Exam CR Knee 3 Views Left Ordering Physician MD LATOYA ÁLVARO Accession Number [id number] CPT4 Codes [id number] () Reason For Exam posterior pain and swelling Report Examination: Left knee four views Indication: posterior pain and swelling Findings: No acute fracture or dislocation is noted. Tiny patellar osteophytes are present. Mild medial compartment osteoarthritis is present. The soft tissues are grossly unremarkable. There is no sizable joint effusion. Impression: No acute osseous abnormality. Mild degenerative changes of the medial compartment and patellofemoral joint. Report Dictated on Final Dictated: 04/07/2018 12:41 pm Dictating Physician: MARY CONKLIN Signed Date and Time: 04/07/2018 12:43 pm Signed by: MARY CONKLIN Transcribed Date and Time: 04/07/2018 12:41 Normal [facility] KNEE LIMITED 2V AP/LAT LEFTo n 08-27-2017 KNEE LIMITED 2V AP/LAT LEFT Performed at [facility] APPROVED BY: Shey Vazquez MD EXAM TITLE: KNEE LIMITED 2V AP/LAT LEFT DATE: 08/27/2017 18:41 INDICATION: Left knee pain secondary to injury COMPARISON: None. FINDINGS: There is no evidence for fracture or dislocation. However, there is soft tissue prominence in the suprapatellar region suggesting a joint effusion. Within the soft tissues, there are innumerable serpiginous structures suggesting venous varicosities. IMPRESSION: At least a moderate-sized joint effusion is present without evidence for fracture. If there is clinical concern for internal derangement, MRI is recommended. Varicose veins. Normal [facility] Vital Signs Date Time Vital Sign Value Performing Clinician Facility 06-25-2025 08:17-0400 Body height 183 cm Lupillo Terrazas MD Work Phone: [facility] 06-25-2025 08:17-0400 Body height 182.88 cm Lupillo Terrazas MD Work Phone: [facility] 06-25-2025 08:17-0400 Body mass index (BMI) [Ratio] 40.56 kg/m2 Lupillo Terrazas MD Work Phone: [facility] 06-25-2025 08:17-0400 Body weight 135 kg Lupillo Terrazas MD Work Phone: [facility] 06-25-2025 08:17-0400 Body weight 135.17 kg Lupillo Terrazas MD Work Phone: [facility] 06-25-2025 08:17-0400 BP SITE #1 Lupillo Terrazas MD Work Phone: [facility] 06-25-2025 08:17-0400 BP SITE #2 Lupillo Terrazas MD Work Phone: [facility] 06-25-2025 08:17-0400 Diastolic blood pressure 83 mm[Hg] Lupillo Terrazas MD Work Phone: [facility] 06-25-2025 08:17-0400 Diastolic blood pressure 79 mm[Hg] Lupillo Terrazas MD Work Phone: [facility] 06-25-2025 08:17-0400 Heart rate 83 /min Lupillo Terrazas MD Work Phone: [facility] 06-25-2025 08:17-0400 HGHTCHNVIS Lupillo Terrazas MD Work Phone: [facility] 06-25-2025 08:17-0400 Systolic blood pressure 135 mm[Hg] Lupillo Terrazas MD Work Phone: [facility] 06-25-2025 08:17-0400 Systolic blood pressure 144 mm[Hg] Lupillo Terrazas MD Work Phone: [facility] 06-25-2025 08:17-0400 VITALSDONE Lupillo Terrazas MD Work Phone: [facility] 06-01-2025 18:16-0400 Body height 182.88 cm Erik WARREN Work Phone: [facility] 06-01-2025 18:16-0400 Body mass index (BMI) [Ratio] 43 kg/m2 Erik WARREN Work Phone: [facility] 06-01-2025 18:16-0400 Body temperature 97.7 [degF] Erik Helton [employer] Work Phone: [facility] 06-01-2025 18:16-0400 Body weight 143.78 kg Erik Helton [employer] Work Phone: [facility] 06-01-2025 18:16-0400 Diastolic blood pressure 70 mm[Hg] Erik Helton [employer] Work Phone: [facility] 06-01-2025 18:16-0400 Heart rate 74 /min Erik Helton [employer] Work Phone: [facility] 06-01-2025 18:16-0400 Respiratory rate 18 /min Erik Helton [employer] Work Phone: [facility] 06-01-2025 18:16-0400 SaO2% (BldA) [Mass fraction] 96 % Erik Helton [employer] Work Phone: [facility] 06-01-2025 18:16-0400 Systolic blood pressure 132 mm[Hg] Erik Helton [employer] Work Phone: [facility] 03-09-2025 19:58-0400 Body height 182.88 cm Erik Helton [employer] Work Phone: [facility] 03-09-2025 19:58-0400 Body mass index (BMI) [Ratio] 42.7 kg/m2 Erik Helton [employer] Work Phone: [facility] 03-09-2025 19:58-0400 Body temperature 97.9 [degF] Erik Helton [employer] Work Phone: [facility] 03-09-2025 19:58-0400 Body weight 142.88 kg Erik Helton [employer] Work Phone: [facility] 03-09-2025 19:58-0400 Diastolic blood pressure 60 mm[Hg] Erik Helton [employer] Work Phone: [facility] 03-09-2025 19:58-0400 Heart rate 83 /min Erik Phoenix [employer] Work Phone: [facility] 03-09-2025 19:58-0400 Respiratory rate 18 /min Erik Helton [employer] Work Phone: [facility] 03-09-2025 19:58-0400 SaO2% (BldA) [Mass fraction] 96 % Erik Helton [employer] Work Phone: [facility] 03-09-2025 19:58-0400 Systolic blood pressure 142 mm[Hg] Erik Phoenix [employer] Work Phone: [facility] 01-15-2023 19:07-0400 Body height 182.88 cm [facility] 01-15-2023 19:07-0400 Body mass index (BMI) [Ratio] 44.9 kg/m2 [facility] 01-15-2023 19:07-0400 Body temperature 97.3 [degF] [facility] 01-15-2023 19:07-0400 Body weight 150.13 kg [facility] 01-15-2023 19:07-0400 Diastolic blood pressure 80 mm[Hg] [facility] 01-15-2023 19:07-0400 Heart rate 85 /min [facility] 01-15-2023 19:07-0400 Respiratory rate 18 /min [facility] 01-15-2023 19:07-0400 SaO2% (BldA) [Mass fraction] 98 % [facility] 01-15-2023 19:07-0400 Systolic blood pressure 160 mm[Hg] [facility] Encounters Encounter Date Encounter Type Care Provider Facility Start: 07-30-2025 End: 07-30-2025 ambulatory ERIK HELTON Facility:[facility] Start: 06-25-2025 In-person encounter Lupillo charles MD Work Phone: [facility] Work Phone: Start: 06-25-2025 Visit out of hours Lupillo gilbert MD Work Phone: [facility]. Work Phone: Start: 06-03-2025 Non-patient / Non-visit Dr. Joon Aguilera MD -[facility] Start: 06-03-2025 End: 06-03-2025 ambulatory Erik Helton [employer] Work Phone: [facility] Start: 06-03-2025 End: 06-03-2025 Patient encounter procedure Erik Helton [employer] -[facility] Work Phone: Start: 06-03-2025 End: 06-03-2025 ambulatory Erik Helton [employer] Facility:[facility] Start: 05-01-2025 End: 05-01-2025 ambulatory Facility:[facility] Start: 04-16-2025 End: 04-16-2025 ambulatory ERIK HELTON Facility:[facility] Start: 04-01-2025 End: 04-01-2025 ambulatory ERIK HELTON Facility:[facility] Start: 03-16-2025 End: 03-18-2025 Evaluation and management of inpatient ERIK HELTON Facility:[id number] Start: 03-16-2025 End: 03-16-2025 Emergency department patient visit CINDY DÍAZ I Facility:[facility] Start: 03-12-2025 End: 03-12-2025 ambulatory ERIK HELTON Facility:[facility] Start: 03-09-2025 End: 03-09-2025 ambulatory Erik Helton [employer]-C Work Phone: [facility] Work Phone: Start: 03-09-2025 End: 03-09-2025 Patient encounter procedure Erik Helton -Laboratory Specimen Work Phone: Start: 03-09-2025 End: 03-09-2025 ambulatory Erik Helton Facility:[facility] Start: 09-15-2024 End: 09-15-2024 ambulatory No Primary Care Physician Facility:[facility] Start: 01-15-2023 End: 01-15-2023 ambulatory [facility] Work Phone: Start: 01-15-2023 End: 01-15-2023 Patient encounter procedure [facility]-Laboratory, Specimen Start: 04-07-2018 Emergency department patient visit Álvaro [facility] Procedures Date Procedure Procedure Detail Performing Clinician Start: 06-25-2025 BMI documented as ab ove normal parameters - follow-up documented Lupillo Terrazas MD Work Phone: Start: 06-25-2025 Current tobacco non- user cad cap copd pv dm Lupillo Terrazas MD Work Phone: Start: 06-25-2025 Documentation of cur rent medications Lupillo Terrazas MD Work Phone: Start: 06-25-2025 Pain assessment docu mented as positive - follow-up documented Lupillo Terrazas MD Work Phone: Start: 03-09-2025 Urine culture Erik collazo [employer]-C Work Phone: Plan of Treatment Date Care Activity Detail Author Start: 03-09-2025 Urine culture Urine Culture [facility] Start: 03-09-2025 [facility] Start: 01-16-2023 Prostate specific an tigen measurement [facility] Troponin T.cardiac [Mass/volume] in Serum or Plasma by High sensitivity method [facility] Payers Date Payer Category Payer Self-pay [id number] 2024 Unknown [id number] 1960 Unknown [id number] 2.16.8 [id number] 1960 Unknown [id number] 2.16.8 [id number] 1960 Unknown [id number] 2.16.8 [id number] 1960 Unknown [id number] 2.16.8 [id number] 1960 Unknown [id number] 2.16.8 [id number] 1960 Unknown [id number] 2.16.8 [id number] 1960 Unknown [id number] 2.16.8 [id number] 1960 Unknown [id number] 2.16.8 [id number] Medicare Unknown Unknown [id number] 2.16.8 [id number] Unknown [id number] 2.16.8 [id number] Unknown [id number] 2.16.8 [id number] Unknown [id number] 2.16.8 [id number] Unknown [id number] Worker's Compensation Social History Date Type Detail Facility Start: 04-30-2019 Tobacco smoking stat [facility] Unknown if ever smoked [facility] Start: 1960 Sex Assigned At Male [facility] Start: 04-26-2023 [facility] Start: 06-25-2025 social history revie wed [employer] Work Phone: Clinical Note 03-18-2025 Note Date & Type Note Facility 03-18-2025 Note SHAWNGALLO :1960 Registration Date:03/16/2025 Admission Information 64-year-old male with hypertension diabetes and hyperlipidemia with midsternal chest heaviness with exertion relieved by rest for the past few days. His EKG shows no acute ST segment changes and his troponin is elevated and it went up to 413. Patient was given nitroglycerin pill and he felt much better. He was heparinized. He was diagnosed with an NSTEMI and transferred him to [facility] for elective left heart catheterization. Patient also noticed that he has been getting edema of the legs for the past few days and he gets some exertional dyspnea as well and the symptoms are more suggestive of probably mild exacerbation of congestive cardiac failure as well. He underwent LHC with noted left anterior descending coronary artery 99% narrowing in its proximal one third. Successful PCI with IDALIA times 2 to the LAD. Started on Toprol, plavix (Brillinta not covered by insurance), asa, lipitor. Pt undergoing echocardiogram to re-evaluate EF and apical hypokinesis. Recommended cardiac rehab referral. Discharge today with OP F/U with Dr. Parks in 1 week. Admit Date/Time:03/17/2025 16:40 EDT Discharge Date 03/18/2025 Admitting Physician - MCKENZIE STAFFORD, BRENDA Attending Physician - MCKENZIE STAFFORD, [facility] Primary Care Physician - ERIK HELTON All Diagnoses This Visit Hypertension NSTEMI Diabetes Mellitus type 2 Hyperlipidemia Discharge Medications New atorvastatin (Lipitor 40 mg oral tablet)2 Tabs Oral AT BEDTIME. Refills: 1. clopidogrel (Plavix 75 mg oral tablet)1 Tabs Oral DAILY. Refills: 1. Changed aspirin (aspirin 81 mg oral delayed release tablet)1 Tabs Oral DAILY WITH BREAKFAST. metoprolol (metoprolol succinate 50 mg oral tablet, extended release)1 Tabs Oral DAILY. Refills: 1. Unchanged amLODIPine (amLODIPine 5 mg oral tablet)1 Tabs Oral DAILY. Discontinued metFORMIN = Glucophage (metFORMIN 1000 mg oral tablet)1 Tabs Oral TWICE A DAY. tirzepatide (Mounjaro 7.5 mg/0.5 mL subcutaneous solution)7.5 Milligram Subcutaneous SUNDAY. rotate injection sites. Hospital Course Significant Findings 99% occlusion of proximal LAD. Low normal EF with apical hypokinesis. Procedures and Treatment Provided [facility] with IDALIA x2 Echocardiogram 64-year-old male with hypertension diabetes and hyperlipidemia with midsternal chest heaviness with exertion relieved by rest for the past few days. His EKG shows no acute ST segment changes and his troponin is elevated and it went up to 413. Patient was given nitroglycerin pill and he felt much better. He was heparinized. He was diagnosed with an NSTEMI and transferred him to [facility] for elective left heart catheterization. Patient also noticed that he has been getting edema of the legs for the past few days and he gets some exertional dyspnea as well and the symptoms are more suggestive of probably mild exacerbation of congestive cardiac failure as well. He underwent LHC with noted left anterior descending coronary artery 99% narrowing in its proximal one third. Successful PCI with IDALIA times 2 to the LAD. Started on Toprol, plavix (Brillinta not covered by insurance), asa, lipitor. Pt undergoing echocardiogram to re-evaluate EF and apical hypokinesis. Recommended cardiac rehab referral. Discharge today with OP F/U with Dr. Parks in 1 week. Physical Exam Vitals & Measurements T: 36.4 ?C (Oral) TMIN: 36.3 ?C (Oral) TMAX: 36.7 ?C (Oral) HR: 77 (Monitored) RR: 18 BP: 114/78 SpO2: 97% Discharge Plan Patient Discharge Condition Stable Discharge Disposition DC from to home with referral to cardiac rehab and FUV with cardiology in 1 week. Activity on Discharge Referral to cardiac rehab. Diet on Discharge Diet Order - Ordered -- 03/16/2025 21:20:00 EDT, Heart Healthy Diet Order - Ordered -- 03/16/2025 21:20:00 EDT, NPO after Midnight except Meds Diet Order (NPO Except Meds with Sips of Water Start NOW) - Ordered -- 03/17/2025 07:12:00 EDT, NPO Except Meds w/ Sips Water Diet Order - Ordered -- 03/17/2025 10:31:00 EDT, Heart Healthy Patient Education Heart Attack: Myocardial Infarction or Acute Coronary Syndrome Patient Follow-Up With When Contact Information BRENDA HAWKINS Cardiology 04/01/2025 03:30 PM EDT [address] [facility] [address] [place] [address]- Business (1) Additional Instructions: Heart Failure Education ([facility]) 03/24/2025 01:00 PM EDT [id number] [place] [address]- Business (1) Additional Instructions: Please CALL [phone] if unable to attend. IF PATIENT IS DISCHARGE TO A NURSING FACILITY OR CUSTODIAL CARE PLEASE DO NOT ATTEND. Discharge or Transfer Location Dc from 3E to home. [facility] History and physical note 03-16-2025 Note Date & Type Note Facility 03-16-2025 Note Patient: SHAWN, ED GARNETT Age: 64 years Sex: Male : 1960 Associated Diagnoses: None Author: BRENDA HAWKINS MD History of Present Illness Mr. Escobar is a 64-year-old male with hypertension diabetes and hyperlipidemia has been having midsternal chest heaviness with exertion relieved by rest for the past few days. Patient can walk 200 to 300 feet before he gets chest discomfort and he has to stop and it has been going on for the past week to 10 days and is getting more frequent. However last night he woke up with midsternal chest heaviness but no associated diaphoresis or dyspnea and the pain was nonradiating and he decided to come to the emergency room around 3:00 this morning. His EKG shows no acute ST segment changes nad his troponin is elevated and it went up to 413. Patient was given nitroglycerin pill and he felt much better. He was heparinized. By the time I came to see him he has been relatively asymptomatic and his EKG shows no new ST segment changes. His clinical picture is very much suggestive of NSTEMI and I will transfer him to [facility] for elective left heart catheterization. He has no history of prior myocardial infarction stroke or peripheral vascular disease. No history of any heart failure or thyroid problems. Patient also noticed that he has been getting edema of the legs for the past few days and he gets some exertional dyspnea as well and the symptoms are more suggestive of probably mild exacerbation of congestive cardiac failure as well. He does not recall having cardiac catheterization or a stress test recently. Patient is reasonably active but does not do much exercise on a regular basis. His diabetes not under very good control and he has some evidence of diabetic neuropathy but no evidence of any retinopathy or nephropathy. His creatinine is normal. Patient is now transferred to [facility] for elective left heart catheterization in the morning. Review of Systems Cardiovascular: Chest pain. Physical Examination General: Alert and oriented. Eye: Normal conjunctiva. HENT: Oral mucosa is moist. Neck: Supple, No carotid bruit, No lymphadenopathy. Respiratory: Lungs are clear to auscultation. Cardiovascular: Normal rate, Regular rhythm, No gallop, Good pulses equal in all extremities, Normal peripheral perfusion, edema of legs present. Gastrointestinal: Soft, Non-tender, Normal bowel sounds. Musculoskeletal: Normal range of motion. Cognition and Speech: Oriented, Speech clear and coherent. Impression and Plan 1.NSTEMI with touch of heart failure 2.Type 2 Diabetes 3.Hypertension 4.Hyperlipidemia 5.Echo in AM 6.Continue current home meds except Metformin for now 7.Discontinue heparin at 6 AM 8.Left heart cath tomorrow morning Electronically Co-Signed by: BRENDA HAWKINS MD on 03/16/2025 21:31 EDT Electronically Co-Signed by: BRENDA HAWKINS MD on 03/16/2025 21:34 EDT [facility] Evaluation note 03-09-2025 Note Date & Type Note Facility 03-09-2025 Evaluation note Diagnosis Onset Date Resolution Diabetes type 2, uncontrolled acute March 09, 2025 7 :17pm Left arm numbness acute March d2024 7:17pm Right flank pain acute March 7:17pm [facility] Work Phone: Evaluation note 03-09-2025 Note Date & Type Note Facility 03-09-2025 Evaluation note Diagnosis Onset Date Resolution Diabetes type 2, uncontrolled acute March 09, 2025 7 :17pm Left arm numbness acute March d2024 7:17pm Right flank pain acute March 7:17pm Acute deep vein thrombosis (DVT) of calf muscle vein of right lower extremity acute May 6:04pm Edema of right lower leg acute June 01 6:04pm [facility] Work Phone: Evaluation note Note Date & Type Note Facility Evaluation note Diagnosis Onset Date Diabetes type 2, uncontrolled acute Hypertension chronic [facility] Work Phone: Reason for referral (narrative) Note Date & Type Note Facility Reason for referral (narrative) No reason for referral information available [facility] Work Phone: Summary Purpose Family History No Family History Records Found Family Member Condition Father Mother Advance Directives No Advanced Directives Records FoundNo Advanced Directives Records FoundNo Advanced Directives Records FoundNo Advanced Directives Records FoundNo Advanced Directives Records Found No Information Available No Advanced Directives Records FoundNo Advanced Directives Records Found Chief Complaint and Reason for Visit Chief Complaint medication refills Reason for Visit Diabetes type 2, unc ontrolled Hypertension Chief Complaint Admit Date Kidney pain/left arm pain March 09, 2025 7:17pm Reason for Visit Admit Date Diabetes type 2, uncontrolled March 09, 2025 7:17pm Left arm numbness March 09, 2025 7:17p m Right flank pain March 09, 2025 7:17p m Chief Complaint Admit Date Kidney pain/left arm pain March 09, 2025 7:17pm Pulled or torn calf muscle June 01, 2025 6:04pm EDEMA RT LEG, DVT RT LEG June 03 9:43am Reason for Visit Admit Date Diabetes type 2, uncontrolled March 09, 2025 7:17pm Left arm numbness March 09, 2025 7:17p m Right flank pain March 09, 2025 7:17p m Acute deep vein thrombosis ( DVT) of calf muscle vein of right lower extremity June 01, 2025 6:04pm Edema of right lower leg June 01 6:04pm Additional Source Comments (unrecognized sect ion and content) No Status Records FoundNo Status Records FoundNo Status Records FoundNo Status Records FoundNo Status Records FoundNo Status Records FoundNo Status Records Found INFORMATION SOURCE (unrecogn ized section and content) DATE CREATED AUTHOR 04/02/2018 [facility] DATE CREATED AUTHOR AUTHOR'S ORGANIZ ATION 04/25/2018 [facility] DATE CREATED AUTHOR AUTHOR'S ORGANIZ ATION 05/16/2019 [facility] DATE CREATED AUTHOR AUTHOR'S ORGANIZ ATION 03/16/2025 [facility] DATE CREATED AUTHOR AUTHOR'S ORGANIZ ATION 05/03/2025 [facility] DATE CREATED AUTHOR AUTHOR'S ORGANIZ ATION 06/26/2025 [facility] DATE CREATED AUTHOR AUTHOR'S ORGANIZ ATION 07/31/2025 [facility] Care Teams (unrecognized sec tion and content) Team Status: Inactive Member Role Status Dates Erik Helton LINING IRONER, [employer]-C Attending Provider, Referring Provider Active Team Status: Inactive Member Role Status Dates Erik Helton LIN[employer]ER, [employer]C Attending Provider Active Team Status: Inactive Member Role Status Dates Erik Helton LINING IR[employer]ER, [employer]-C Attending Provider Active Start: March 09, 2025 End: March 09, 2025 Erik Helton [employer]ER, [employer]-C Referring Provider Active Start: March 09, 2025 End: March 09, 2025 Team Status: Inactive Member Role Status Dates Erik Helton Attending Provider Active Start: March 09, 2025 End: March 09, 2025 Erik Helton Referring Provider Active Start: March 09, 2025 End: March 09, 2025 Team Status: Active Member Role/Relationship Status Dates Erik Helton LINING [employer]ER, [employer]-C Primary Care Provider Active Team Status: Inactive Member Role/Relationship Status Dates Erik Helton LINING IRONER, [employer]-C Attending Provider Active Start: March 09, 2025 End: March 09, 2025 Erik Helton LIN[employer] IR[employer]ER, [employer]-C Referring Provider Active Start: March 09, 2025 End: March 09, 2025 Team Status: Inactive Member Role/Relationship Status Dates Erik Helton Attending Provider Active Start: March 09, 2025 End: March 09, 2025 Erik Helton Referring Provider Active Start: March 09, 2025 End: March 09, 2025 Team Status: Inactive Member Role/Relationship Status Dates Erik Helton LINING IRONER, [employer]-C Attending Provider Active Start: June 01, 2025 End: June 01, 2025 Team Status: Inactive Member Role/Relationship Status Dates Erik Helton LINING IRONER, [employer]-C Primary Care Provider Active Start: June 03, 2025 End: June 03, 2025 Erik Helton LINING IRONER, [employer]-C Attending Provider Active Start: June 03, 2025 End: June 03, 2025 Erik Helton LINING IRONER, [employer]-C Referring Provider Active Start: June 03, 2025 End: June 03, 2025 Team Status: Active Member Role/Relationship Status Dates Erik Helton LINING IRONER, [employer]-C Primary Care Provider Active Start: June 03, 2025 Dr. Joon Aguilera MD Attending Provider Active S tart: June 03, 2025 Goals (unrecognized section and content) Goals may be documented in a n alternate sectionGoals may be documented in an alternate sectionGoals may be documented in an alternate section No Information Available REASON FOR VISIT (unrecogniz ed section and content) right lower leg pain, New - 1st visit with practice FOR RECORDS PERTAINING TO PATIENTS WHO ARE OR HAVE BEEN ENROLLED IN A CHEMICAL DEPENDENCY/SUBSTANCEABUSE PROGRAM, SOME INFORMATION MAY BE OMITTED. This clinical summary was aggregated from multiple sources. Caution should be exercised in using it in the provision of clinical care. This summary normalizes information from multiple sources, and as a consequence, information in this document may materially change the coding, format and clinical context of patient data. In addition, data may be omitted in some cases. CLINICAL DECISIONS SHOULD BE BASED ON THE PRIMARY CLINICAL RECORDS. [facility]. provides no warranty or guarantee of the accuracy or completeness of information in this document.
[2025-08-20 22:25] LABS: Hematocrit 43.1 % (40-54); Hemoglobin 14.9 g/dL (13.0-16.5); Immature Granulocytes Count 0.110 X10^3/uL (0.0-0.0); Mean Corp Hgb Conc 34.6 g/dL (32-36); Mean Corpuscular Volume 88.0 fL (80-94); Mean Platelet Vol. 11.7 fl (6.2-12.0); NRBC Flagged by Analyzer 0 % (0-5); POSITIVE DIFFERENTIAL YES; Platelet Count 296 K/mm3 (150-450); RBC Distribution Width CV 13.0 % (11.6-14.6); RBC Distribution Width SD 42.1 fl (35.1-43.9); Red Blood Count 4.90 M/mm3 (4.6-6.2); White Blood Count 16.4 K/mm3 (4.4-11.0)
[2025-08-20 22:46] LABS: AST(SGOT) 19 U/L (<=37); Alanine Aminotransfer ALT/SGPT 17 U/L (<=46); Albumin, Serum 4.1 g/dL (3.4-4.8); Alkaline Phosphatase 74 U/L (40-129); Anion Gap 9 (5-15); BUN 12 mg/dL (4-19); BUN/Creat Ratio 16.2 RATIO (10-20); Calcium,Total 9.8 mg/dL (7.6-11.0); Carbon Dioxide 28.1 mmol/L (21.0-32.0); Chloride 100 mmol/L (98-108); Cholesterol 115 mg/dL (<=200); Globulin 3.0 g/dL (2.2-4.2); Glucose 113 mg/dL (70-99); Low Density Lipoprotein Calc. 54 mg/dL; PSA,Total- Diagnostic 0.29 ng/mL (0.00-4.00); Potassium 4.4 mmol/L (3.3-5.1); Triglycerides 78 mg/dL; Very Low Density Lipoprotein 16 mg/dL (5-40); cholesterol:hdl ratio screen 2.57
[2025-08-20 23:06] LABS: Differential Comment SCANNED; Differential Indicated SCAN CRITERIA MET
== END | disposition home or self-care (01) ==
PROVIDERS: PCP Nurse Practitioner; Referring Provider Nurse Practitioner; Visit Provider Nurse Practitioner
DX: R35.0 Frequency of micturition (principal); E11.65 Type 2 diabetes mellitus with hyperglycemia; I10 Essential (primary) hypertension
CPT/HCPCS: 80053; 80061; 83036; 84153; 85025